=== PATIENT | male | born 1940 | race Caucasian/White ===

== ENCOUNTER 2021-03-08 00:13 | Inpatient (IN) | payer OTHER, MEDICARE ==
[2021-03-08] MEDS ORDERED: ACETAMINOPHEN 500 MG TAB ONE (00:37)
[2021-03-08] MEDS ORDERED: NA CHLORIDE 0.9% 1,000 ML ONE ×2 (00:37→06:27)
[2021-03-08 00:49] LABS: Absolute Lymphocytes (CBC) 7.9 K/uL (0.7-4.9); Basophils % 0.8 % (0-1.3); Hematocrit 36.9 % (39.6-49.0); Lymphocytes % 70.4 % (15.3-44.8); MPV 9.1 fL (7.6-11.3); RBC Red Blood Cell Count 3.91 M/uL (4.33-5.43)
[2021-03-08 00:53] LABS: Protime INR 1.15
[2021-03-08 01:03] LABS: Albumin 3.3 g/dL (3.4-5.0); Bilirubin Direct 0.2 mg/dL (0-0.2); Bilirubin Total 0.6 mg/dL (0.2-1.0); CKMB Creatine Kinase MB 1.1 ng/mL (1.0-3.6); Protein, Total 6.8 g/dL (6.4-8.2); Troponin (Emerg Dept Use Only) 0.04 ng/mL (0.0-0.045)
[2021-03-08 01:39] LABS: Blood Morphology Comment NOT SEEN (NOT SEEN); Platelet Estimate DECR
[2021-03-08] MEDS ORDERED: AZITHROMYCIN 500 MG INJ IVPB ONE (02:00)
[2021-03-08] MEDS ORDERED: CEFTRIAXONE/SWI 1gm 1 GM/10 ML SYR ONE (02:00)
[2021-03-08] MEDS ORDERED: NA CHLORIDE 0.9% 250 ML ONE (02:00)
[2021-03-08 04:22] LABS: Urine Blood Trace-lysed (Negative); Urine Glucose Negative (Negative); Urine Protein Negative (Negative)
--- NOTE | 2021-03-08 05:31 | EDPHYS ---
Physician Documentation [facility] Name: Mo Millard Age: 80 yrs Sex: Male : 1940 Arrival Date: 03/08/2021 Time: 00:14 Bed 4 Private MD: ED Physician Ravinder Erickson HPI: 03/08 00:15 This 80 yrs old Male presents to ER via EMS with complaints of Fever. mh7 00:15 The patient reports fever, not measured (subjective). mh7 00:15 Onset: The symptoms/episode began/occurred just prior to arrival, today. Modifying mh7 factors: there are no obvious modifying factors. Associated signs and symptoms: Pertinent positives: chest pain, chills, myalgias, shortness of breath, Pertinent negatives: abdominal pain, altered mental status, backache, diarrhea, pulling at ears, earache, headache, hemoptysis, myalgias, nausea, night sweats, runny nose, sinus congestion, sinus drainage, skin rash, sore throat, swelling, vomiting. Severity of symptoms: At their worst the symptoms were moderate today, in the emergency department the symptoms have improved mildly. - Immunization history:: Adult Immunizations not immunized. - Social history:: Smoking status: unknown. ROS: 00:15 Eyes: Negative for injury, pain, redness, and discharge, ENT: Negative for injury, mh7 pain, and discharge, Neck: Negative for injury, pain, and swelling, Abdomen/GI: Negative for abdominal pain, nausea, vomiting, diarrhea, and constipation, Back: Negative for injury and pain, : Negative for injury, bleeding, discharge, and swelling, MS/Extremity: Negative for injury and deformity, Skin: Negative for injury, rash, and discoloration, Neuro: Negative for headache, weakness, numbness, tingling, and seizure, Psych: Negative for depression, anxiety, suicide ideation, homicidal ideation, and hallucinations, Allergy/Immunology: Negative for hives, rash, and allergies, Endocrine: Negative for neck swelling, polydipsia, polyuria, polyphagia, and marked weight changes, Hematologic/Lymphatic: Negative for swollen nodes, abnormal bleeding, and unusual bruising. Exam: 00:15 Head/Face: Normocephalic, atraumatic. Eyes: Pupils equal round and reactive to light, mh7 extra-ocular motions intact. Lids and lashes normal. Conjunctiva and sclera are non-icteric and not injected. Cornea within normal limits. Periorbital areas with no swelling, redness, or edema. ENT: Nares patent. No nasal discharge, no septal abnormalities noted. Tympanic membranes are normal and external auditory canals are clear. Oropharynx with no redness, swelling, or masses, exudates, or evidence of obstruction, uvula midline. Mucous membranes moist. Neck: Trachea midline, no thyromegaly or masses palpated, and no cervical lymphadenopathy. Supple, full range of motion without nuchal rigidity, or vertebral point tenderness. No Meningismus. 00:15 Abdomen/GI: Soft, non-tender, with normal bowel sounds. No distension or tympany. No guarding or rebound. No evidence of tenderness throughout. Back: No spinal tenderness. No costovertebral tenderness. Full range of motion. 00:15 Skin: Warm, dry with normal turgor. Normal color with no rashes, no lesions, and no evidence of cellulitis. Neuro: Awake and alert, GCS 15, oriented to person, place, time, and situation. Cranial nerves II-XII grossly intact. Motor strength 5/5 in all extremities. Sensory grossly intact. Cerebellar exam normal. Normal gait. Psych: Awake, alert, with orientation to person, place and time. Behavior, mood, and affect are within normal limits. 00:15 Constitutional: The patient appears in no acute distress, alert, awake, febrile. 00:15 Cardiovascular: Rate: tachycardic, Rhythm: regular, Pulses: no pulse deficits are appreciated, Heart sounds: normal, normal S1and S2, Edema: is not appreciated, JVD: is not appreciated. 00:15 Respiratory: the patient does not display signs of respiratory distress, Respirations: normal, Breath sounds: rhonchi, that are mild, are scattered, Respiratory rate: 20 00:15 Musculoskeletal/extremity: Extremities: noted in the right leg: erythema, tenderness, ROM: intact in all extremities, Circulation is intact in all extremities. Sensation intact. Compartment Syndrome exam of affected extremity: is normal. no numbness, no tingling, no sensation deficit, no palor, no weak pulses, Joints: All joints appear normal with full range of motion. DVT Exam: no pain, no tenderness, no erythema, no increased warmth, Calves: are non-tender, have equal circumference. Vital Signs: 00:42 BP 121 / 77; Pulse 126; Resp 24 S; Temp 103.2(O); Pulse Ox 90% on R/A; Weight 81.19 kg; ad5 Height 5 ft. 11 in. (180.34 cm); 01:52 BP 123 / 55; Pulse 99; Resp 20 S; Pulse Ox 95% on 4 lpm NC; ad5 02:55 BP 104 / 59; Pulse 109; Resp 19 S; Temp 100.8(O); Pulse Ox 97% on 4 lpm NC; ad5 03:50 BP 107 / 55; Pulse 88; Resp 16 S; Pulse Ox 95% on 4 lpm NC; ad5 04:40 BP 92 / 48; Pulse 92; Resp 18; Temp 99.7; Pulse Ox 98% on 4 lpm NC; ea 05:13 BP 98 / 59; Pulse 86; Resp 20; Pulse Ox 97% on 4 lpm NC; ea 06:15 BP 95 / 54; Pulse 85; Resp 19; Pulse Ox 97% on R/A; ea 00:42 Body Mass Index 24.97 (81.19 kg, 180.34 cm) ad5 MDM: 05:27 Differential diagnosis: viral Infection, bacterial infection, URI, bronchitis, mh7 pneumonia UTI, Cellulitis. Data reviewed: vital signs, nurses notes, EMS record, lab test result(s), cardiac enzymes, CBC, electrolytes, urinalysis, EKG, radiologic studies, CT scan, plain films, ultrasound. Data interpreted: Pulse oximetry: on 2L(s) per nasal canula, is 97 %. Interpretation: acceptable. Counseling: I had a detailed discussion with the patient and/or guardian regarding: the historical points, exam findings, and any diagnostic results supporting the discharge/admit diagnosis, lab results, radiology results, the need for further work-up and treatment in the hospital. Response to treatment: the patient's symptoms have markedly improved after treatment. 05:30 Patient medically screened. [facility] 03/08 00:22 Order name: Amylase, Serum [facility] 03/08 00:22 Order name: Basic Metabolic Panel [facility] 03/08 00:22 Order name: Blood Culture Adult (2) [facility] 03/08 00:22 Order name: CBC with Diff [facility] 03/08 00:22 Order name: CPK [facility] 03/08 00:22 Order name: Ckmb; Complete Time: 05:17 [facility] 03/08 00:22 Order name: LFT's; Complete Time: 05:17 [facility] 03/08 00:22 Order name: Lactate; Complete Time: 01:29 [facility] 03/08 00:22 Order name: Lipase; Complete Time: 05:17 [facility] 03/08 00:22 Order name: Procalcitonin; Complete Time: 01:57 [facility] 03/08 00:22 Order name: Protime (+inr); Complete Time: 01:29 03/08 00:22 Order name: Ptt, Activated; Complete Time: 01:29 [facility] 03/08 00:22 Order name: Troponin (emerg Dept Use Only); Complete Time: 05:17 [facility] 03/08 00:22 Order name: Urine Microscopic Only; Complete Time: 06:07 [facility] 03/08 00:22 Order name: Influenza Screen (a \T\ B); Complete Time: 01:29 [facility] 03/08 00:22 Order name: Amylase; Complete Time: 05:17 [facility] 03/08 00:22 Order name: Basic Metabolic Panel; Complete Time: 05:17 [facility] 03/08 00:22 Order name: Blood Culture [facility] 03/08 00:22 Order name: CBC with Automated Diff; Complete Time: 01:57 [facility] 03/08 00:22 Order name: Creatine Phosphokinase; Complete Time: 05:17 [facility] 03/08 00:51 Order name: Manual Differential; Complete Time: 01:57 [facility] 03/08 01:44 Order name: SARS-COV-2 RT PCR; Complete Time: 01:57 [facility] 03/08 03:41 Order name: PROBNP [facility] 03/08 03:50 Order name: NT PRO-BNP; Complete Time: 05:17 [facility] 03/08 04:21 Order name: Urine Dipstick-Ancillary; Complete Time: 05:17 [facility] 03/08 05:42 Order name: Basic Metabolic Panel [facility] 03/08 05:42 Order name: Basic Metabolic Panel [facility] 03/08 05:42 Order name: CBC with Automated Diff [facility] 03/08 00:22 Order name: Chest Single View XRAY [facility] 03/08 00:22 Order name: Accucheck; Complete Time: 00:32 mh03/08 00:22 Order name: Cardiac monitoring; Complete Time: 00:32 03/08 00:22 Order name: EKG - Nurse/Tech; Complete Time: 00:32 03/08 00:22 Order name: IV Saline Lock - Large Bore; Complete Time: 00:32 03/08 00:22 Order name: Labs collected and sent; Complete Time: 00:32 03/08 00:22 Order name: O2 Per Protocol; Complete Time: 00:32 03/08 00:22 Order name: O2 Sat Monitoring; Complete Time: 00:32 03/08 00:22 Order name: Urine Dipstick-Ancillary (obtain specimen); Complete Time: 00:32 03/08 00:23 Order name: US Extremity Venous Unilateral Ltd [facility] 03/08 01:32 Order name: CT Chest For PE Angio [facility] 03/08 01:32 Order name: CT Abd/Pelvis - IV Contrast Only [facility] 03/08 05:42 Order name: Heart Healthy [facility] 03/08 05:42 Order name: CBC with Automated Diff [facility] 03/08 06:09 Order name: XRAY Tib Fib RIGHT ea Administered Medications: 00:26 Drug: Tylenol 1000 mg Route: PO; ea 01:49 Follow up: Response: No adverse reaction; Temperature is decreased ad5 00:28 Drug: NS 0.9% (30 ml/kg) 30 ml/kg Route: IV; Rate: bolus; Site: left forearm; ea 00:56 Drug: NS 0.9% (30 ml/kg) 30 ml/kg Route: IV; Rate: bolus; Site: left forearm; ad5 02:21 Follow up: IV Status: Completed infusion; IV Intake: 1000ml ad5 01:45 Drug: Rocephin (cefTRIAXone) 1 grams Route: IV; Rate: per protocol; Site: left forearm; ad5 02:20 Follow up: Response: No adverse reaction ad5 06:30 Follow up: IV Status: Completed infusion ea 01:49 Drug: AZITHromycin 500 mg Route: IVPB; Infused Over: 1 hrs; Site: left forearm; ad5 05:43 Follow up: IV Status: Completed infusion; IV Intake: 250ml ad5 06:16 Drug: Clindamycin 600 mg Route: IVPB; Infused Over: 30 mins; Site: left forearm; ad5 06:35 Follow up: IV Status: Completed infusion ea Disposition Summary: 03/08/21 05:30 Hospitalization Ordered Hospitalization Status: Inpatient Admission [facility] Provider: Andre Lei [facility] Location: Telemetry/MedSurg (Inpatient) [facility] Condition: Stable [facility] Problem: new [facility] Symptoms: have improved [facility] Bed/Room Type: Standard [facility] Room Assignment: 401(03/08/21 06:05) tl1 Diagnosis - Cellulitis [facility] - Pneumonia [facility] - Sepsis [facility] Forms: - Medication Reconciliation Form [facility] - SBAR form [facility] Signatures: Dispatcher [employer] EDMS Randy Castorena, CHAN-C VEHICLE ASSEMBLY INSPECTOR-Cla1 Paula Huff RN RN 1 Laura Gifford RN RN Ravinder Paulino MD MD 7 Nick Jimenez ad5 Corrections: (The following items were deleted from the chart) 00:46 00:16 CORONAVIRUS+MR.LAB.BRZ ordered. EDMS EDMS 03:50 03:41 NT PRO-BNP ordered. EDMS EDMS 05:58 05:30 7 tl1 06:05 05:58 406 tl1 tl1
--- NOTE | 2021-03-08 05:31 | ER ---
Nurse's Notes [facility] Name: Mo Millard Age: 80 yrs Sex: Male : 1940 Arrival Date: 03/08/2021 Time: 00:14 Bed 4 Private MD: Diagnosis: Cellulitis;Pneumonia;Sepsis Presentation: 03/08 00:25 Coronavirus screen: Client denies travel out of the [place] in the last 14 days. Ebola ea Screen: No symptoms or risks identified at this time. Initial Sepsis Screen: Does the patient meet any 2 criteria? Temp <36.0*C (96.8*F)) or > 38.3*C (100.9*F). HR > 90 bpm. Does the patient have a suspected source of infection? Yes: Productive cough/pneumonia. Risk Assessment: Do you want to hurt yourself or someone else? Patient reports no desire to harm self or others. Onset of symptoms was March 08, 2021. 00:25 Acuity: PK 3 ea 00:25 Method Of Arrival: EMS: [facility] ea 00:42 Chief complaint: EMS states: Pt BIB EMS for c/o CP, SOB, fever, chills that began ad5 earlier this pm. Pt also c/o redness, edema, pain to RLE that began earlier in the day, denies recent injury. Distal SMCs intact. Pt on NRB by EMS captain room service for O2 sat 88% on RA, placed on NC upon arrival to ED with O2 sat mid 90s, tolerating well. - Immunization history:: Adult Immunizations not immunized. - Social history:: Smoking status: unknown. Screenin:33 Abuse screen: Denies threats or abuse. Nutritional screening: No deficits noted. ea Tuberculosis screening: No symptoms or risk factors identified. Fall Risk IV access (20 points). Assessment: 00:25 General: Appears uncomfortable, Behavior is appropriate for age. Pain: Complains of ea pain in right leg. Neuro: Level of Consciousness is awake, alert, obeys commands, Oriented to person, place, situation. Cardiovascular: Patient's skin is warm and dry. Respiratory: Airway is patent Respiratory effort is even, unlabored, Respiratory pattern is regular, symmetrical. Derm: Skin is pink, warm \T\ dry. 01:30 Reassessment: Patient appears in no apparent distress at this time. Patient and/or ad5 family updated on plan of care and expected duration. Pain level reassessed. Patient is alert, oriented x 3, equal unlabored respirations, skin warm/dry/pink. Patient states feeling better. 02:54 Reassessment: Patient appears in no apparent distress at this time. Patient and/or ad5 family updated on plan of care and expected duration. Pain level reassessed. Patient is alert, oriented x 3, equal unlabored respirations, skin warm/dry/pink. Family remains at bedside. Pt positioned for comfort in stretcher, resp even/unlabored. VSS. Denies needs or c/o at this time. Will continue to monitor. 03:20 Reassessment: Fam [place] [phone] Ric [place] [phone]. ea 05:13 Reassessment: Patient and/or family updated on plan of care and expected duration. Pain ea level reassessed. Patient is alert, oriented x 3, equal unlabored respirations, skin warm/dry/pink. Vital Signs: 00:42 BP 121 / 77; Pulse 126; Resp 24 S; Temp 103.2(O); Pulse Ox 90% on R/A; Weight 81.19 kg; ad5 Height 5 ft. 11 in. (180.34 cm); 01:52 BP 123 / 55; Pulse 99; Resp 20 S; Pulse Ox 95% on 4 lpm NC; ad5 02:55 BP 104 / 59; Pulse 109; Resp 19 S; Temp 100.8(O); Pulse Ox 97% on 4 lpm NC; ad5 03:50 BP 107 / 55; Pulse 88; Resp 16 S; Pulse Ox 95% on 4 lpm NC; ad5 04:40 BP 92 / 48; Pulse 92; Resp 18; Temp 99.7; Pulse Ox 98% on 4 lpm NC; ea 05:13 BP 98 / 59; Pulse 86; Resp 20; Pulse Ox 97% on 4 lpm NC; ea 06:15 BP 95 / 54; Pulse 85; Resp 19; Pulse Ox 97% on R/A; ea 00:42 Body Mass Index 24.97 (81.19 kg, 180.34 cm) ad5 ED Course: 00:14 Patient arrived in ED. la1 00:15 Ravinder Erickson MD is Attending Physician. mh7 00:25 Inserted saline lock: 20 gauge in left forearm, using aseptic technique. Blood ea collected. 00:25 Patient has correct armband on for positive identification. Bed in low position. Call ea light in reach. Side rails up X2. 00:25 Arm band placed on right wrist. Patient placed in an exam room, on a stretcher, on ea oxygen, on supervisor opening and picking, on pulse oximetry. 00:34 Triage completed. ea 00:41 Nick Jimenez is Primary Nurse. ad5 00:50 Chest Single View XRAY In Process Unspecified. EDMS 02:11 US Extremity Venous Unilateral Ltd In Process Unspecified. EDMS 02:20 CT Abd/Pelvis - IV Contrast Only Sent. ad5 02:20 CT Chest For PE Angio Sent. ad5 02:35 CT Chest For PE Angio In Process Unspecified. EDMS 02:35 CT Abd/Pelvis - IV Contrast Only In Process Unspecified. EDMS 05:28 Andre Lei MD is Hospitalizing Provider. 7 06:19 No provider procedures requiring assistance completed. Patient admitted, IV remains in ad5 place. Administered Medications: 00:26 Drug: Tylenol 1000 mg Route: PO; ea 01:49 Follow up: Response: No adverse reaction; Temperature is decreased ad5 00:28 Drug: NS 0.9% (30 ml/kg) 30 ml/kg Route: IV; Rate: bolus; Site: left forearm; ea 00:56 Drug: NS 0.9% (30 ml/kg) 30 ml/kg Route: IV; Rate: bolus; Site: left forearm; ad5 02:21 Follow up: IV Status: Completed infusion; IV Intake: 1000ml ad5 01:45 Drug: Rocephin (cefTRIAXone) 1 grams Route: IV; Rate: per protocol; Site: left forearm; ad5 02:20 Follow up: Response: No adverse reaction ad5 06:30 Follow up: IV Status: Completed infusion ea 01:49 Drug: AZITHromycin 500 mg Route: IVPB; Infused Over: 1 hrs; Site: left forearm; ad5 05:43 Follow up: IV Status: Completed infusion; IV Intake: 250ml ad5 06:16 Drug: Clindamycin 600 mg Route: IVPB; Infused Over: 30 mins; Site: left forearm; ad5 06:35 Follow up: IV Status: Completed infusion ea Intake: 02:21 IV: 1000ml; Total: 1000ml. ad5 05:43 IV: 250ml; Total: 1250ml. ad5 Outcome: 05:30 Decision to Hospitalize by Provider. [facility] 06:19 Admitted to Med/surg accompanied by nurse, via stretcher, Report called to TIFFANY Genao ad5 06:19 Condition: stable 06:19 Instructed on the need for admit, Demonstrated understanding of instructions. 06:32 Patient left the ED. ea Signatures: Dispatcher [employer] EDMS Randy Castorena, CHAN-C WORKCELL OPERATOR-Cla1 Laura Gifford RN RN ea Holmes, Maurice, MD MD Nick Spears ad5 Corrections: (The following items were deleted from the chart) 04:42 04:40 BP 92 / 48; Pulse 92bpm; Resp 18bpm; Pulse Ox 98% 3 lpm Nasal Cannula; Temp ea 99.7F; ea 06:19 02:55 BP 104 / 59; Pulse 109bpm; Resp 19bpm; Spontaneous; Pulse Ox 97% 4 lpm Nasal ad5 Cannula; ad5
[2021-03-08] MEDS ORDERED: ONDANSETRON 4 MG/2 ML VIAL IV PRN (05:35)
[2021-03-08 05:46] LABS: Urine Bacteria <20 /HPF (NONE SEEN); Urine RBC <5 /HPF (NONE SEEN)
[2021-03-08] MEDS: MORPHINE 2 MG/ML SYR IV PRN (06:24)
[2021-03-08] MEDS ORDERED: CLINDAMYCIN 600MG/D5W 600 MG/50 ML BAG IV ONE (06:27)
[2021-03-08] MEDS ORDERED: MORPHINE 2 MG/ML SYR ONE (06:47)
--- NOTE | 2021-03-08 07:48 | RAD REPORT ---
EXAM DESCRIPTION: US - Extremity Venous Uni Ltd - 03/08/2021 2:11 am COMPARISON: None. TECHNIQUE: Real-time sonographic evaluation of the right lower extremity deep venous system was perf ormed. FINDINGS: Normal compressibility, flow augmentation, phasic flow and spontaneous flow is identified in the right lower extremity deep venous system. No intraluminal filling defects seen. IMPRESSION: No DVT in the right lower extremity.
[2021-03-08] MEDS ORDERED: VANCOMYCIN/NS 1 gm 1 GM/250 ML BAG IVPB SCH (08:00)
--- NOTE | 2021-03-08 08:05 | RAD REPORT ---
EXAM DESCRIPTION: RAD - Chest Single View - 03/08/2021 12:51 am CLINICAL HISTORY: Chest pain, shortness of breath, fever chills COMPARISON: None. TECHNIQUE: AP portable chest image was obtained . FINDINGS: No edema or consolidation. Biventricular pacemaker. Soft tissue anchors in the right humer al head. No pneumothorax or pleural effusions. Visualized upper abdomen is unremarkable. IMPRESSION: No acute cardiopulmonary process.
[2021-03-08 08:21] VITALS: BMI 26.4
[2021-03-08] MEDS: D5 0.45 NS 1,000 ML IV SCH ×3 (09:12→22:31)
[2021-03-08] MEDS: VANCOMYCIN 1.5 GM in NA CHLORIDE 0.9% 500 ML IVPB SCH (09:20)
[2021-03-08] MEDS ORDERED: PNEUMOCOCCAL VACCINE 0.5 ML IMVAC ONE (10:00)
--- NOTE | 2021-03-08 10:06 | RAD REPORT ---
EXAM DESCRIPTION: RAD - Tib Fib Right - 03/08/2021 9:45 am CLINICAL HISTORY: Pain and swelling to the right leg COMPARISON: None. FINDINGS: Status post right total knee arthroplasty. No evidence of hardware complications. No fract ures are identified. Peripheral vascular calcifications are noted. IMPRESSION: No fracture of the tibia or fibula is identified. Knee arthroplasty hardware appears int act.
--- NOTE | 2021-03-08 11:36 | RAD REPORT ---
EXAM DESCRIPTION: CT - Chest For Pe Angio - 03/08/2021 6:32 am COMPARISON: None. CLINICAL HISTORY: [facility] MAIN Fever;Dyspnea TECHNIQUE: CT images through the chest with IV contrast using the pulmonary embolus protocol. Multip lanar reformats. MIPS reformats are provided. Automated exposure control was utilized on this exami [facility] as a dose lowering technique. FINDINGS: Pulmonary arteries and vascular: Diagnostic quality bolus. No filling defects. Moderate mu ltivessel calcified atherosclerosis. Heart and mediastinum: Heart size is enlarged. Left chest pacemaker in place. No lymphadenopathy. Thyroid gland: A 2.1 cm posterior left thyroid nodule is present. Lungs: Bilateral groundglass opacities are present. Dependent atelectasis or scarring is noted. Airways: No filling defects. No bronchiectasis. Pleura: No pneumothorax. No significant pleural effusion. Musculoskeletal and soft tissues: Chronic bilateral rib fractures. IMPRESSION: 1. No evidence of pulmonary embolus. 2. Mild bilateral groundglass opacities favor mild pulmonary edema and less likely early infection. 3. Cardiomegaly. 4. Moderate atherosclerosis. 5. 2.1 cm left thyroid nodule. Recommend thyroid ultrasound. EXAM DESCRIPTION: CT Abdomen and Pelvis COMPARISON: None. CLINICAL HISTORY: [facility] MAIN Fever;Dyspnea TECHNIQUE: CT of the abdomen and pelvis was acquired with IV contrast material. Coronal and sagitt al reconstructions were obtained. Automated exposure control was utilized on this examination as a dose lowering technique. FINDINGS: Liver: Normal. Gallbladder and biliary: Normal gallbladder. Unremarkable biliary tree. Pancreas: Normal. Spleen: The spleen is enlarged measuring 16.8 cm. Adrenal glands: Normal adrenal glands. Kidneys: Right renal cysts measure up to 2.9 cm. Stomach and Small Bowel: The stomach and small bowel are normal. Urinary bladder: Normal. Prostate/Male Urogenital: Normal. Colon and Appendix: Severe sigmoid diverticulosis. Mild ascending colon wall thickening is noted. No evidence of appendicitis. Retroperitoneum and lymph nodes: Right lower quadrant mesenteric lymph nodes measure up to 2.9 cm jenn rt axis (series 501 image 46). Vascular: Moderate multivessel calcified atherosclerosis. Peritoneal cavity: No ascites or free air. Musculoskeletal and soft tissues: Small periumbilical fat-containing hernias are present. Lumbar spon dylosis with grade 1 anterolisthesis L4 on L5. No aggressive bone lesions. No compression fracture. IMPRESSION: 1. Right lower quadrant mesenteric lymph nodes measure up to 2.9 cm short axis. This is concerning for malignancy or lymphoma. Consider colonoscopy if not recently performed as there is mil d ascending colon wall thickening. 2. Splenomegaly. 3. Severe sigmoid diverticulosis. 4. Moderate atherosclerosis. Electronically signed by: Alexandru Hernandez MD 03/08/2021 3:11 AM CDT Due to temporary technical issues with the PACS/Fluency reporting system, reports are being signed by the in house radiologist without review as a courtesy to ensure prompt reporting. The interpreting r adiologist is fully responsible for the content of the report.
--- NOTE | 2021-03-08 11:44 | RAD REPORT ---
EXAM DESCRIPTION: CTAbdomen Pelvis W Contrast - 03/08/2021 6:31 am COMPARISON: None. CLINICAL HISTORY: [facility] MAIN Fever;Dyspnea TECHNIQUE: CT images through the chest with IV contrast using the pulmonary embolus protocol. Multip lanar reformats. MIPS reformats are provided. Automated exposure control was utilized on this exami [facility] as a dose lowering technique. FINDINGS: Pulmonary arteries and vascular: Diagnostic quality bolus. No filling defects. Moderate mu ltivessel calcified atherosclerosis. Heart and mediastinum: Heart size is enlarged. Left chest pacemaker in place. No lymphadenopathy. Thyroid gland: A 2.1 cm posterior left thyroid nodule is present. Lungs: Bilateral groundglass opacities are present. Dependent atelectasis or scarring is noted. Airways: No filling defects. No bronchiectasis. Pleura: No pneumothorax. No significant pleural effusion. Musculoskeletal and soft tissues: Chronic bilateral rib fractures. IMPRESSION: 1. No evidence of pulmonary embolus. 2. Mild bilateral groundglass opacities favor mild pulmonary edema and less likely early infection. 3. Cardiomegaly. 4. Moderate atherosclerosis. 5. 2.1 cm left thyroid nodule. Recommend thyroid ultrasound. EXAM DESCRIPTION: CT Abdomen and Pelvis COMPARISON: None. CLINICAL HISTORY: [facility] MAIN Fever;Dyspnea TECHNIQUE: CT of the abdomen and pelvis was acquired with IV contrast material. Coronal and sagitt al reconstructions were obtained. Automated exposure control was utilized on this examination as a dose lowering technique. FINDINGS: Liver: Normal. Gallbladder and biliary: Normal gallbladder. Unremarkable biliary tree. Pancreas: Normal. Spleen: The spleen is enlarged measuring 16.8 cm. Adrenal glands: Normal adrenal glands. Kidneys: Right renal cysts measure up to 2.9 cm. Stomach and Small Bowel: The stomach and small bowel are normal. Urinary bladder: Normal. Prostate/Male Urogenital: Normal. Colon and Appendix: Severe sigmoid diverticulosis. Mild ascending colon wall thickening is noted. No evidence of appendicitis. Retroperitoneum and lymph nodes: Right lower quadrant mesenteric lymph nodes measure up to 2.9 cm jenn rt axis (series 501 image 46). Vascular: Moderate multivessel calcified atherosclerosis. Peritoneal cavity: No ascites or free air. Musculoskeletal and soft tissues: Small periumbilical fat-containing hernias are present. Lumbar spon dylosis with grade 1 anterolisthesis L4 on L5. No aggressive bone lesions. No compression fracture. IMPRESSION: 1. Right lower quadrant mesenteric lymph nodes measure up to 2.9 cm short axis. This is concerning for malignancy or lymphoma. Consider colonoscopy if not recently performed as there is mil d ascending colon wall thickening. 2. Splenomegaly. 3. Severe sigmoid diverticulosis. 4. Moderate atherosclerosis. Electronically signed by: Alexandru Hernandez MD 03/08/2021 3:11 AM CDT Due to temporary technical issues with the PACS/Fluency reporting system, reports are being signed by the in house radiologist without review as a courtesy to ensure prompt reporting. The interpreting r adiologist is fully responsible for the content of the report.
[2021-03-08] MEDS ORDERED: NA CHLORIDE 0.9% 500 ML IV ONE ×2 (11:52→15:00)
[2021-03-08] MEDS ORDERED: Levofloxacin500mg IV 500 MG/100 ML BAG IV SCH (12:00)
--- NOTE | 2021-03-08 12:59 | EKG ---
Test Date: 2021-03-08 Test Time: 00:28:54 Manager Utilization Review: JOESPH MEASUREMENT RESULTS: Intervals: Rate: 108 [place]: 150 QRSD: 166 QT: 406 QTc: 544 [place]: P: 53 [place]: 150 QRS: 125 T: -23 INTERPRETIVE STATEMENTS: Poor data quality, interpretation may be adversely affected Electronic ventricular pacemaker Compared to ECG 08/08/2013 15:09:28 Atrial flutter no longer present Left ventricular hypertrophy no longer present ST (T wave) deviation no longer present Electronically Signed On 03-08-21 12:58:55 CDT by Wilfred Crooks
--- OUTSIDE RECORDS SUMMARY | 2021-03-08 15:04 | XMS REPORT | Continuity of Care Document ---
:1940 Author Organization [facility] t Address [address] [place] [address] Care Team Providers Name Role Phone Do PACHECO Primary Care Physician Dajuan PACHECO PhD, S. Attending Clinician Gio Patel MD Attending Clinician Sabiha Meraz MA Attending Clinician Unavailable Damien CARSON Attending Clinician Unavailable Shaheen PACHECO, Walt Barboza Attending Clinician Navi Begum MD Attending Clinician Elena PACHECO Attending Clinician Lillian OH Attending Clinician Brian PACHECO, RGopi Attending Clinician DAJUAN Admitting Clinician Unavailable Payers Payer Name Policy Type Policy Effective Date Expiration Date Sour ce Number MEDICAREMEDICARE PART [id number] 2006 Bandar Finley AND 00:00:00 [employer] [id number] 2006- [facility] DEMedicare AARPAARP [id number] 2016 [place] [id number] 00:00:00 Met kumar 2016-PresentComme rcial Problems Condition Condition Condition Status Onset Resolution Last Treating Co mments Source Name Details Category Date Date Treatment Clinician Date CAD in CAD in Disease Active [place] nisqually nisqually 03-22 [facility] artery artery 00:00: st 00 PAD PAD Disease Active [place] (periphera (periphera 7-21 Me thodi l artery l artery 00:00: st disease) disease) 00 Cardiomyop Cardiomyop Disease Active [facility] athy athy 1-21 [facility] 00:00: st 00 Abnormal Abnormal Disease Active [place] stress stress 8-20 [facility] test test 00:00: st 00 Angina Angina Disease Active [place] pectoris pectoris 8-20 Method i 00:00: st 00 Chest pain Chest pain Disease Active [facility] 820 [facility] 00:00: st 00 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 SVT events lasting for 8 - 28 seconds durationC ontinue to monitorFo r now, continue Metoprolo l dose SOB SOB Disease Active [place] (shortness (shortness 9-28 Me thodi of breath) of breath) 00:00: st 00 Essential Essential Disease Active Overview: [place] hypertensi hypertensi 9-28 Formattin [facility] on on 00:00: g of this st 00 note might be different from the original. 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 S/p dual chamber perm pacemaker implant by Dr. Graff (04/15/17) Paroxysmal Paroxysmal Disease Active [place] atrial atrial 4-25 [facility] fibrillati fibrillati 00:00: st on on Carotid Carotid Disease Active [place] bruit bruit 12-25 Methodi 00:00: st 00 Dizzy Dizzy Disease Active [place] 4-25 Methodi 00:00: st 00 Allergies, Adverse Reactions, Alerts This patient has no known allergies or adverse reactions. Family History Family Member Diagnosis Comments Start Date Stop Date Source Natural brother Lung cancer [facility] Natural brother Prostate cancer [place] [facility] Natural father Heart attack [facility] Natural mother Osteoporosis [facility] Social History Social Habit Start Date Stop Date Quantity Comments Source Tobacco use and 2020-10-28 2020-10-28 Former user [facility] exposure 00:00:00 00:00:00 Alcohol intake 2020-10-28 2020-10-28 Current drinker [place] [facility] 00:00:00 00:00:00 of alcohol (finding) Alcohol Comment 2020-10-27 2020-10-27 social [facility] ethodist 00:00:00 00:00:00 Sex [birth year] [facility] ethodist 00:00:00 00:00:00 Smoking Status Start Date Stop Date Source Former smoker 2020-10-28 00:00:00 2020-10-28 00:00:00 [facility] Medications Ordered Filled Start Stop Current Ordering Indication Dosage Frequency Signature Comments Components Source Medication Medication Date Date Medication? Clinician (SIG) Name Name metoprolol Yes TAKE ONE [place] succinate 6-23 (1) [facility] XL 00:00: TABLET(S) st (TOPROL-XL) 00 BY MOUTH 25 mg 24 hr DAILY. tablet amIODarone Yes TAKE ONE [place] (PACERONE) 5-31 (1) [facility] 200 MG 00:00: TABLET(S) st tablet 00 BY MOUTH ONCE A DAY. amIODarone 200mg QD Take 1 Juanito ston (PACERONE) 3-25 04-24 tablet Method i 200 MG 00:00: 23:59 ([address] tablet 00 :00 total) by mouth daily for 30 days. cholecalcif Yes 400U QD Take 400 [place] james, 2-25 Units by [facility] vitamin D3, 12:46: mouth st (VITAMIN 21 daily. D3) 400 unit tablet amIODarone 200mg QD Take 1 Juanito ston (PACERONE) 2-25 03-25 tablet Method i 200 MG 00:00: 00:00 ([address] tablet 00 :00 total) by mouth daily for 30 days. dronedarone 400mg QD Take 1 [place] (Multaq) - 02-24 tablet [facility] 400 mg 00:00: 00:00 ([address] tablet 00 :00 total) by mouth daily. amIODarone 200mg QD Take 1 Juanito ston (PACERONE) 124 tablet Method i 200 MG 00:00: 00:00 ([address] tablet 00 :00 total) by mouth daily. Multaq 400 2019-09 TAKE ONE [place] mg tablet 09-10 (1) Methodi 00:00: 00:00 TABLET(S) st 00 :00 BY MOUTH ONCE A DAY. Multaq 400 TAKE ONE [place] mg tablet 04-13 (1) [facility] 00:00: 00:00 TABLET(S) st 00 :00 BY MOUTH ONCE A DAY. metoprolol 25mg QD Take 1 [place] succinate 04-11 06-23 tablet (25 Met hodi XL 00:00: 00:00 mg total) st (TOPROL-XL) 00 :00 by mouth 25 mg 24 hr daily. tablet Multaq 400 TAKE ONE [place] mg tablet 01-17 (1) Methodi 00:00: 00:00 TABLET(S) st 00 :00 BY MOUTH ONCE A DAY. metoprolol 25mg QD Take 1 [place] succinate 05-19 04-11 tablet (25 Met hodi XL 00:00: 00:00 mg total) st (TOPROL-XL) 00 :00 by mouth 25 mg 24 hr daily. tablet Vital Signs Vital Name Observation Time Observation Value Comments Source Body height 2021-01-20 08:22:00 177.8 cm Ricki Colin Body weight 2021-01-20 08:22:00 86.183 kg [facility] [facility] BMI 2021-01-20 08:22:00 27.26 kg/m2 Ricki Sampsonist Body temperature 2020-11-16 14:57:00 36.22 Nighat Kosta Colin Systolic blood 2020-10-27 12:10:00 125 mm[Hg] [place] [facility] pressure Diastolic blood 2020-10-27 12:10:00 79 mm[Hg] [place] [facility] pressure Heart rate 2020-10-27 12:10:00 69 /min Ricki Colin Respiratory rate 2020-10-27 12:10:00 16 /min Kosta Colin Oxygen saturation in 2020-10-27 12:10:00 96 /min Ricki Colin Arterial blood by Pulse oximetry Procedures Procedure Date / Time Performing Clinician Source Performed XR SHOULDER 2+ VW LEFT 2021-01-20 08:18:07 Ilsa Patel [place] ARTHROCENTESIS 2021-01-20 08:15:00 Ilsa Patel ASPIR&/INJ MAJOR JT/BURSA W/O US CBC WITH PLATELET AND 2020-11-16 16:34:00 Gm Jamison [facility] DIFFERENTIAL Jabari COMPREHENSIVE METABOLIC 2020-11-16 16:34:00 Gm Jamisonist PANEL Jabari LDH 2020-11-16 16:34:00 [facility] URIC ACID LEVEL 2020-11-16 16:34:00 [facility] Barboza HEPATITIS ACUTE PANEL 2020-11-16 16:34:00 Gm Jamison HIV AG/AB COMBINATION 2020-11-16 16:34:00 Gm Jamison [facility] Kiran ESTIMATED GFR 2020-11-16 16:34:00 Gm Jamison Me thodist Jabari MANUAL DIFFERENTIAL 2020-11-16 16:34:00 Shaheen Gm tanner [facility] Jabari EP CARDIOVERSION W LILIA 2020-10-27 11:56:55 Sam GraffGopi Méndez on [facility] ECHOCARDIOGRAM 2020-10-27 11:41:58 Sam GraffGopi Robison Meth odannette TRANSESOPHAGEAL FOR CARDIOVERSION CBC WITH PLATELET AND 2020-10-27 10:08:00 DajuanSam [facility] DIFFERENTIAL MANUAL DIFFERENTIAL 2020-10-27 10:08:00 DajuanSam BLOOD SMEAR CONSULT 2020-10-27 10:08:00 Sam Graff FLOW CYTOMETRY EVALUATION 2020-10-27 10:08:00 Sam Graff ECG PRE/POST OP 2020-10-27 09:48:20 DajuanSam CarringtonGopi middleton BASIC METABOLIC PANEL 2020-10-25 12:53:00 Sam Graff CBC WITH PLATELET AND 2020-10-25 12:53:00 DajuanSam Buddhism DIFFERENTIAL PROTHROMBIN TIME WITH INR 2020-10-25 12:53:00 Sam Graff ECG 12-LEAD 2020-09-13 12:41:46 Dajuan Sam CarringtonGopi middleton US DUPLEX ARTERIAL LOWER 2020-04-12 09:34:06 Rj Aguilar EXTREMITY BILATERAL TTE COMPLETE, W CONTRAST, 2020-03-14 10:01:19 Rj Aguilar W DOPPLER ([id number]) Plan of Care Planned Activity Planned Date Details Comments Source Future Scheduled 2021-04-02 INFLUENZA VACCINE Concepcion tanner [facility] Test 00:00:00 [code = INFLUENZA VACCINE] Future Scheduled 1991 SHINGLES VACCINES (#1) Hue pickens [facility] Test 00:00:00 [code = SHINGLES VACCINES (#1)] Future Scheduled 1953 COVID-19 VACCINE (1) Juanito cho [facility] Test 00:00:00 [code = COVID-19 VACCINE (1)] Future Scheduled 1946 65+ PNEUMOCOCCAL [place] [facility] Test 00:00:00 VACCINE (1 of 2 - PPSV23) [code = 65+ PNEUMOCOCCAL VACCINE (1 of 2 - PPSV23)] Encounters Start End Encounter Admission Attending Care Care Encounter Source Date/Time Date/Time Type Type Clinicians Facility Department ID 2021-01-20 2021-01-20 Outpatient [facility] [id number] [place] 00:00:00 00:00:00 ILSA [address] 2021-01-20 2021-01-20 Outpatient [facility] [id number] [place] 00:00:00 00:00:00 ILSA [address] 2020-11-16 2020-11-16 Outpatient SHA[facility]EN [facility] [id number] [place] 00:00:00 00:00:00 GM [address] 2020-11-16 2020-11-16 Outpatient SHA[facility]EN [facility] [id number] [place] 00:00:00 00:00:00 GM [address] 2020-10-27 2020-10-27 Outpatient DAJUAN [facility] [id number] [place] 00:00:00 00:00:[address] 2020-09-13 2020-09-13 Outpatient DAJUAN [facility] [id number] [place] 00:00:00 00:00:[address] 2020-04-12 2020-04-12 Outpatient BRIAN [facility] [id number] [place] 00:00:00 00:00:00 RJ [address] 2020-03-22 2020-03-22 [facility] [id number] [place] 00:00:00 00:00:00 RJ [address] 2020-03-14 2020-03-14 Outpatient [facility] [id number] [place] 00:00:00 00:00:00 RJ [address] 2019-05-05 2019-05-05 Outpatient SAM GRAFF [facility] [id number] [place] 00:00:00 00:00:[address] Results Test Description Test Time Test Comments Results Result [facility] Comments Large Joint 2021-01-01 Ilsa Patel MD [place] Arthrocentesis: 1 01/20/2021 1:36 [facility] shoulder, R 08:15:00 PMLarge Joint subacromial Arthrocentesis: bursa shoulder, R subacromial bursaPerformed by: Ilsa Patel MDAuthorized by: Ilsa Patel MD Consent given by: PatientSite marked: the procedure site was marked Timeout: prior to procedure the correct patient, procedure, and site was verified Indications: Pain, joint swelling and diagnostic evaluationLocation: ShoulderSite: R subacromial bursaUltrasound guided?: No Fluoroscopically guided?: No Needle size (right): 22 GRight side approach: PosteriorRight side medications: 80 mg methylPREDNISolone acetate 40 mg/mL; 20 mg methylPREDNISolone acetate 40 mg/mL; 2 mL lidocaine 10 mg/mL (1 %); 1 mL lidocaine 10 mg/mL (1 %)Patient tolerance (right): Patient tolerated the procedure well with no immediate complications Flow cytometry evaluation 2020-10-28 17:29:18 Test Item Value Reference Range Interpretation Comme [facility] Case number (test code = 9798231) [id number] Flow cytometry evaluation (test code = See link below for PDF Lab R eport [id number]) [place] [facility] [id number] 23:01:55CARDIAC ELECTROPHYSIOLOGY NOTE PREPROCEDURE DIAGNOSIS:1. Persistent atrial fibrillation POSTPROCEDURE DIAGNOSIS:1. s/p successful cardioversion TITLE OF PROCEDURE:1. DC cardioversion INDICATIONS:The patient is a 80 y.o. male who is referred for electrical cardioversion. The patient underwent a preprocedure LILIA which was negative for intra-cardiac thrombi. DETAILS:After written informed consent was provided by the patient in a fasting, non-sedated state, the patient was brought to the procedure room, sedated by anesthesia, underwent LILIA which is reported separately and which was negative for intra-cardiac thrombus. The rhythm was then confirmed, sedation level deepened by anesthesia, and then given biphasic synchronized shock as below. The patient tolerated the procedure well, awoke from sedation with no sequelae. FINDINGS:Baseline rhythm: AF HR 70 bpmShock: 200 Joule x 1Final rhythm: NSR HR 60 bpm PLAN:D/c home today in 2 hours. Continue anticoagulation.[facility] MethodistECG Pre/Post [id number] 15:57:57 Test Item Value Reference Range Interpretation Comments Ventricular rate (test 70 code = 253) Atrial rate (test code 416 = 255) QRSD interval (test 168 code = 260) QT interval (test code 492 = 264) QTC interval (test code 531 = 265) QRS axis 1 (test code = 143 268) T wave axis (test code -23 = 270) EKG impression (test Ventricular-paced code = 273) rhythm-Abnormal ECG-In automated comparison with ECG of 27-OCT-2020 09:47,-No significant change was found- [place] MethodistTransesophageal Echocardiogram for [id number] 15:05:00Interface, Radiology Results In - 10/27/2020 3:05 PM CST Transesophageal Echo Report [address], [place], [place] [address] Pat.Name: JAYDEN SPARROW Pat.ID: [id number] .Date: 10/27/2020 Refer.MD: SAM GRAFF MD Exam Time: 11:44:00 AM Study Type:LILIA Height: 70in Weight: 191lb BSA: 2.05 m2 Age: 1 1940,80Y Sex: MALE BP: 131/83 HR: 69 bpm Sonogrphr: Nia Grant MD Pat. Stat.:Inpatient Room: 24 Study Status:Final Echo Event ID:[id number] Order ID: [id number] Procedures: Transesophageal Echo with Colorflow DopplerRace: C SUMMARY: No thrombus or mass is visualized in the LA or LA appendage.Mild mitral regurgitation.- FINDINGS: LILIA: The attending industrial trainer performed the LILIA procedure and was present for the entire duration. The patient was counseled and an informed consent was obtained. Topical and intravenous anesthesia was administered. The esophagus was intubated without difficulty. The probe was passed to the gastric fundus and all standard echocardiographic views were obtained. The patient tolerated the procedure well.LV: LV size is normal. LV EF is normal. Overall wall motion is normal. Estimated EF is 60-64%.RV: RV size is normal. RV systolic function is normal.LA: LA volume is enlarged. No thrombus or mass is visualized in the LA or LA appendage.RA: RA size is normal.AO: Mild atherosclerotic changes seen in the descending aorta.IGOR: No pericardial effusion.AV: No structural AV abnormalities noted.MV: No structural MV abnormalities noted. Mild mitral regurgitation. PV: No structural PV abnormalities noted.TV: No structural TV abnormalities noted.Rojas: Pulmonary vein velocity is consistent with normal left atrial pressures. LILIA: Anesthesia: Per Anesthesia ASA Class: 3Physician: Per Paige M.D. Apple Checker: Kwan Vidales LILIA BP HR Post LILIA BP HR 131/83 69 115/83 69Meds: Viscous xylocaine, Cetacaine spray to oropharynxCom plications: None Condition: Stable --MEASUREMENTS: 2DParasternal Long [place] Ao An 2.9 cm LVOT 2.5 cm Ao Rtd 3.7 cm Index 1.8 cm/m2 LVOT LVOT Area 4.9 cm2 Signed 10/27/2020 03:05 Karel Paige M.D. [facility] metabolic [id number] 06:53:00 Test Item Value Reference Interpretation Comments Range Glucose (test code 100 mg/dL 65-99 H Fasting = 2345-7) reference inter rosemary For someone wit hout known diabetes, a glucose valuebe tween 100 and 125 mg/ dL is consistent withprediabetes and should be confi rmed with afollow-up test. BUN (test code = 19 mg/dL 03-26 3094-0) Creatinine (test 1.06 mg/dL 0.70-1.18 For patient s >49 code = 2160-0) years of age, the reference limit for Creatinine is approximately 1 3% higher for peopleidentifie d as -Juana n. EGFR Non-Afr. 66 See_Comment [Automated me ssage] Norwegian (test code The syst em which = 3205) generated this result transmit chaitanya reference range : > OR = 60 mL/min/1.73m2. The reference range was not used to interpret this result as normal/abnormal . EGFR 77 See_Comment [Automated mes isadora] Norwegian (test code The syst em which = 76306-3) generated this result transmit chaitanya reference range : > OR = 60 mL/min/1.73m2. The reference range was not used to interpret this result as normal/abnormal . BUN/creatinine NOT APPLICABLE See_Comment [Automated message] ratio (test code = The syste m which 3097-3) generated this result transmit chaitanya reference range : 6 - 22 (calc). The reference range was not used to interpret this result as normal/abnormal . Sodium (test code = 144 mmol/L 186-608 0098-2) Potassium (test 4.2 mmol/L 3.5-5.3 code = 2823-3) Chloride (test code 106 mmol/L 98-110 = 5-0) CO2 (test code = 31 mmol/L 20-32 2028-05) Calcium (test code 9.5 mg/dL 8.6-10.3 = 53546-4) RAC (test code = Performing RAC) Organization Information: Site ID: [id number] Name: [facility] Address: [address] [place] [id number] Director: Howard Cueva Lab Interpretation Abnormal (test code = 96081-9) Ricki ColinProthrombin time with [id number] 06:53:00 Test Item Value Reference Range Interpretation Comments INR (test code = 1.1 Reference R elsy 6301-6) 0.9-1.1Moderate -i ntensity Warfar in Therapy 2.0-3.0Higher-i nt ensity Warfarin Therapy 3.0-4 .0 Prothrombin time 10.9 See_Comment For additio nal (test code = information, 5902-2) please refer tohttp://educat io n.[facility]/faq/FAQ10 4( This link is being provided for informational/e du cational purpos es only.) [Automated message] The system which generated this result transmitted reference range : 9.0 - 11.5 sec. The reference range was not used to interpr et this result as normal/abnormal . RAC (test code = Performing RAC) Organization Information: Site ID: [id number] Address: [address] [place] [id number] Director: Howard SampsonistECJun 12 [id number] 10:54:31 Test Item Value Reference Range Interpretation Comments Ventricular rate 70 (test code = 253) Atrial rate (test 258 code = 255) QRSD interval (test 174 code = 260) QT interval (test 464 code = 264) QTC interval (test 501 code = 265) QRS axis 1 (test code 131 = 268) T wave axis (test -50 code = 270) EKG impression (test ^^^ Poor data quality, code = 273) interpretation may be adversely affected-Electronic ventricular pacemaker-In automated comparison with ECG of 22-SEP-2019 14:58,-Vent. rate has increased BY 10 BPM- Ricki Colin
[2021-03-08] MEDS: MUPIROCIN 2% OINT 22GM TUBE TOP SCH ×2 (15:48→19:52)
[2021-03-08] MEDS: IPRATROPIUM BROM 0.5MG/2.5ML NEB SCH ×2 (16:30→23:15)
[2021-03-08] MEDS: Meropenem 500 MG/100 ML BAG IV SCH (16:39)
--- NOTE | 2021-03-08 16:54 | PN ---
Date of Progress Note: 03/08/2021 The patient states he feels significantly better today. He has had no further chills. The chills pr ompted him to come to the ER and he said he had a rather dark bowel movement just today which obvious ly may fit into the CT scan which showed some thickening and a node in the abdomen. His chest x-ray was negative. CT did show some ground-glass appearance, possibly early pneumonitis. We will repeat the chest x-ray in the morning. He stated he has not been short of breath until yesterday and he is currently on oxygen. Has not needed oxygen at home. He is also on amiodarone. It complicates his c hest situation somewhat. The posterior area in the lower part of the leg was punctured. Fluid was c ultured Bactroban and dressing were applied. Discussion was held with Dr. Beavers from Infectious Dis ease doctor and he decided to use meropenem and DC the Levaquin. Continue with vanc. He will be see n tomorrow. Thyroid ultrasound also to be addressed. We will discuss with family as his history is somewhat vague as far as timing is concerned, though he states he has seen physician office assistant in the past c ouple of months, Dr. Aguilar or Dr. Graff for his pacemaker. He states it has been stable and his cardia c status as far as he knows is also stable. We will get Cardiology to take a look at him as well. T he more likely etiology is his sepsis secondary to a cellulitis, which was rather marked and accordin g to the patient, the edema has been there for about a week and until like as mentioned he got the ch ill, He did not seek medical care and in retrospect, he feels he waited a little bit long, which was probably correct. We will bolus him to get his blood pressure up. Hold beta liza in the meantime . HR/MODL Voice ID: [id number] Report ID: [id number]
[2021-03-09] MEDS: Meropenem 500 MG/100 ML BAG IV SCH ×3 (00:56→16:00)
[2021-03-09] MEDS: VANCOMYCIN 1.5 GM in NA CHLORIDE 0.9% 500 ML IVPB SCH ×2 (03:00→20:57)
[2021-03-09 04:20] LABS: Absolute Lymphocytes (CBC) 7.4 K/uL (0.7-4.9); Basophils % 0.4 % (0-1.3); MPV 9.6 fL (7.6-11.3); RBC Red Blood Cell Count 3.25 M/uL (4.33-5.43)
[2021-03-09 04:32] LABS: ALT/SGPT 21 U/L (12-78); AST/SGOT 19 U/L (15-37); Albumin 2.4 g/dL (3.4-5.0); Alkaline Phosphatase 43 U/L (45-117); BUN Blood Urea Nitrogen 15 mg/dL (7-18); Bicarbonate 25 mmol/L (21-32); Bilirubin Total 0.8 mg/dL (0.2-1.0); Glucose Level 98 mg/dL (74-106); Potassium 3.2 mmol/L (3.5-5.1); Protein, Total 5.4 g/dL (6.4-8.2); Sodium Level 140 mmol/L (136-145)
[2021-03-09] MEDS: IPRATROPIUM BROM 0.5MG/2.5ML NEB SCH ×2 (07:45→15:17)
--- NOTE | 2021-03-09 07:48 | RAD REPORT ---
EXAM DESCRIPTION: RAD - Chest Pa And Lat (2 Views) - 03/09/2021 6:35 am CLINICAL HISTORY: pneumonia COMPARISON: CT chest March 08, portable chest March 08 TECHNIQUE: Frontal and lateral views of the chest were obtained. FINDINGS: The lungs are underinflated. There is patchy left base opacification present. The CT study showed opacification in the posterior gutter and base of the lingula. This could be pneumonia or ate lectasis. Cardiomegaly is present but stable. No significant vascular engorgement. Pacemaker remain s in place. No pneumothorax seen. Trace pleural fluid seen in the posterior gutter on the left. IMPRESSION: Shallow inspiration film showing pneumonia or atelectasis changes at the left lung base. Mild cardiomegaly, stable with chronic baseline interstitial opacification.
[2021-03-09] MEDS: MORPHINE 2 MG/ML SYR IV PRN (08:59)
[2021-03-09] MEDS: MUPIROCIN 2% OINT 22GM TUBE TOP SCH ×2 (09:02→20:57)
[2021-03-09] MEDS: AMIODARONE HCL 200 MG TAB PO SCH (09:02)
--- NOTE | 2021-03-09 10:32 | CON ---
Admitted to Dr. Lei on 03/08/2021. I am seeing the patient because of sepsis and cellulitis and peripheral arterial disease. History Of Present Illness: Mr. Millard is a 80-year-old who came into the hospital with fever, was found to have cellulitis. The patient denied any chest pain or shortness of breath. He denied any n ausea, vomiting, diaphoresis, PND, orthopnea, pedal edema, palpitations, or syncope. Allergies: NONE. Review of Systems: Negative. Social History: Negative. Family History: Negative. Medications: At home include amiodarone and metoprolol. Past Medical History: Include atrial fibrillation and hypertension. Physical Examination: Vital Signs: The patient was in normal sinus rhythm. Vital signs stable. Afebrile. HEENT: Negative. Neck: Supple with no bruit. Chest: Clear to auscultation and percussion. Cardiac: Revealed a regular rhythm and rate. No murmurs, gallops, or rubs. Abdomen: Benign Extremities: Revealed no clubbing, cyanosis, or edema. Diagnostic Data: Laboratory evaluation were all within normal limits. His white count is 10.9, hemo globin 10.3. Procalcitonin is 0.09. He had a CT for pulmonary embolus, which was negative. He was found to have a large mesenteric lymph node, possibly consistent with malignancy, splenomegaly, diver ticulosis, moderate atherosclerosis. No pulmonary embolus. Mild pulmonary edema versus early infect ion. Left thyroid nodule. Chest x-ray was actually negative. Extremity venous ultrasound was actua lly negative. EKG showed ventricular paced rhythm. Impression And Plan: Status post pacemaker here with sepsis, cellulitis. I do not see any evidence of pacemaker involvement. I would get an echocardiogram just to be sure he has paroxysmal atrial fib rillation for which he takes amiodarone. He has hypertension for which he takes metoprolol. He need followup on some of the CT finding including mesenteric lymph node. No further cardiac workup other than the echocardiogram at this point. We will continue to follow him as needed. LIT/HAILEY Voice ID: [id number] Report ID: [id number]
[2021-03-09] MEDS: D5 0.45 NS 1,000 ML IV SCH (11:02)
--- NOTE | 2021-03-09 11:59 | P.CNS ---
Date of Consult: 03/09/21 History of Present Illness: Patient is a 80-year-old male with a past medical history of atrial fibrillation and hypertension who presented to the emergency department due to fever, chills, and pain in legs. Patient was found to have left lower extremity cellulitis with blister formation. Blood cultures obtained, / g stain showed gram- negative rods, on awaiting full culture report. Patient empirically started on vancomycin and meropenem. Wound care to left lower extremity includes mupirocin ointment and wrapped Kerlix. Educated patent patient on importance of keeping the leg elevated. Patient currently denies nausea, vomiting, diarrhea, shortness breath, chest pain. Allergies No Known Allergies Allergy (Verified 08/07/13 09:54) Home Medications: Amiodarone HCl [Cordarone*] 1 tab PO DAILY 03/08/21 Cholecalciferol (Vitamin D3) [Vitamin D 400 IU TAB*] 1 tab PO DAILY 03/08/21 Metoprolol Succinate 25 mg PO DAILY 03/08/21 - Past Medical/Surgical History Diabetic: No -: afib -: prostate CA -: cardioversion, coretta knee replaced, coretta shoulder surgery -: melanoma removed, prostatectomy, hemorrhoid removed, appy -: tonsillectomy -: prostate CA-removed prostate -: pacemaker - Family History Father Medical History: Heart disease Mother History Unknown: Yes - Social History Smoking Status: Unknown if ever smoked Alcohol use: Yes CD- Drugs: No Caffeine use: Yes Place of Residence: Home Review of Systems 10-point ROS is otherwise unremarkable Physical Examination Temp Pulse Resp BP Pulse Ox 98.4 F 92 H 20 101/59 L 95 03/09/21 11:52 03/09/21 11:52 03/09/21 11:52 03/09/21 11:52 03/09/21 11:52 General: Alert, In no apparent distress, Oriented x3 HEENT: Atraumatic, Normocephalic Neck: Supple, 2+ carotid pulse no bruit Respiratory: Clear to auscultation bilaterally, Normal air movement Cardiovascular: No edema, Normal pulses, Regular rate/rhythm, Normal S1 S2 Capillary refill: <2 Seconds Gastrointestinal: Normal bowel sounds, Non-distended Integumentary: Other (Left lower extremity cellulitis: The erythema and swelling noted to left lower extremity. Blister formation to medial aspect, ruptured blister directly above ankle on anterior aspect of left friedman.) Laboratory Tests 03/08/21 03/08/21 03/08/21 00:20 00:20 00:20 WBC 11.20 H RBC 3.91 L Hgb 12.0 L Hct 36.9 L MCV 94.5 MCH 30.7 MCHC 32.4 RDW 15.9 H Plt Count 84 L MPV 9.1 Neutrophils % 27.8 L Lymphocytes % 70.4 H Monocytes % 0.5 L Eosinophils % 0.5 Basophils % 0.8 Absolute Neutrophils 3.1 Segmented Neutrophils 25 L Band Neutrophils 2 H Absolute Lymphocytes 7.9 H Lymphocytes 18 Monocytes 0 Absolute Monocytes 0.1 Eosinophils 1 Absolute Eosinophils 0.1 Absolute Basophils 0.1 Reactive Lymphocytes 54 Platelet Estimate Decr Morphology Comment Not seen PT INR APTT Sodium 141 Potassium 4.0 Chloride 108 H Carbon Dioxide 26 BUN 21 H Creatinine 1.03 Estimated GFR 70 L Glucose 122 H Lactic Acid 2.0 Calcium 8.6 Total Bilirubin 0.6 Direct Bilirubin 0.2 AST 21 ALT 22 Alkaline Phosphatase 69 Creatine Kinase 64 CK-MB (CK-2) 1.1 Rapid Troponin I 0.04 NT-Pro-B Natriuret Pep 440 Serum Total Protein 6.8 Albumin 3.3 L Globulin 3.5 Albumin/Globulin Ratio 0.9 L Amylase 45 Lipase 63 L Procalcitonin Urine pH Ur Specific [place] Glucose (UA)(Auto) Urine Ketones Urine Blood Urine Nitrite Ur Leukocyte Esterase Urine RBC Urine WBC Ur Squamous Epith Cells Urine Bacteria Urine Culture Reflexed Urine Total Protein SARS-CoV-2 RNA (RT-PCR) 03/08/21 03/08/21 03/08/21 00:20 00:20 00:22 WBC RBC Hgb Hct MCV MCH MCHC RDW Plt Count MPV Neutrophils % Lymphocytes % Monocytes % Eosinophils % Basophils % Absolute Neutrophils Segmented Neutrophils Band Neutrophils Absolute Lymphocytes Lymphocytes Monocytes Absolute Monocytes Eosinophils Absolute Eosinophils Absolute Basophils Reactive Lymphocytes Platelet Estimate Morphology Comment PT 13.3 H INR 1.15 APTT 23.2 L Sodium Potassium Chloride Carbon Dioxide BUN Creatinine Estimated GFR Glucose Lactic Acid Calcium Total Bilirubin Direct Bilirubin AST ALT Alkaline Phosphatase Creatine Kinase CK-MB (CK-2) Rapid Troponin I NT-Pro-B Natriuret Pep Serum Total Protein Albumin Globulin Albumin/Globulin Ratio Amylase Lipase Procalcitonin 0.09 H Urine pH Ur Specific [place] Glucose (UA)(Auto) Urine Ketones Urine Blood Urine Nitrite Ur Leukocyte Esterase Urine RBC Urine WBC Ur Squamous Epith Cells Urine Bacteria Urine Culture Reflexed Urine Total Protein SARS-CoV-2 RNA (RT-PCR) Negative 03/08/21 03/08/21 03/08/21 03:41 04:15 04:19 WBC RBC Hgb Hct MCV MCH MCHC RDW Plt Count MPV Neutrophils % Lymphocytes % Monocytes % Eosinophils % Basophils % Absolute Neutrophils Segmented Neutrophils Band Neutrophils Absolute Lymphocytes Lymphocytes Monocytes Absolute Monocytes Eosinophils Absolute Eosinophils Absolute Basophils Reactive Lymphocytes Platelet Estimate Morphology Comment PT INR APTT Sodium Potassium Chloride Carbon Dioxide BUN Creatinine Estimated GFR Glucose Lactic Acid Calcium Total Bilirubin Direct Bilirubin AST ALT Alkaline Phosphatase Creatine Kinase CK-MB (CK-2) Rapid Troponin I NT-Pro-B Natriuret Pep Cancelled Serum Total Protein Albumin Globulin Albumin/Globulin Ratio Amylase Lipase Procalcitonin Urine pH 5.0 Ur Specific [place] 1.010 Glucose (UA)(Auto) Negative Urine Ketones Negative Urine Blood Trace-lysed H Urine Nitrite Negative Ur Leukocyte Esterase Negative Urine RBC <5 Urine WBC <5 Ur Squamous Epith Cells <5 Urine Bacteria <20 Urine Culture Reflexed Not needed Urine Total Protein Negative SARS-CoV-2 RNA (RT-PCR) Conclusions/Impression: Antibiotics: vancomycin start: 03/08 stop: -- Meropenem Start: 03/08 stop: -- Assessment: -sepsis with bacteremia -left lower extremity cellulitis with blister formation -history of atrial fibrillation -anemia Plan: -source of sepsis: Likely left lower extremity cellulitis. Blood cultures obtained on 03/08: 4/4 g stains show gram-negative rods, awaiting culture report. Continue empiric IV antibiotic therapy with vancomycin and meropenem. Continue to monitor renal function. Will obtain repeat blood cultures tomorrow. -cellulitis: Continue to apply mupirocin ointment to ruptured blister, wrapped with Kerlix. Keep leg elevated. Venous Doppler showed no evidence of DVT. X- ray showed no signs of osteomyelitis. -medical management per primary team Continue monitor CBC and BMP Continue monitor signs infection Plan of care discussed with Dr. lei Thank you for consultation.
--- NOTE | 2021-03-09 16:38 | PN ---
Date of Progress Note: 03/09/2021 The patient remains afebrile. Cellulitis has improved considerably. He was seen by Infectious Disea se and Cardiology who later felt the utilization of the medication and presently holding the beta-blo cker keeping on amiodarone is indicated at present. He feels the pacemaker is not involved in the se psis and I agree with this. Suspect cellulitis is the source. We will continue on the present regim en. Discuss disposition with his family in regards specifically to present therapy and further evalu ation of probable node in the abdominal cavity. HR/MODL Voice ID: [id number] Report ID: [id number]
[2021-03-10] MEDS: Meropenem 500 MG/100 ML BAG IV SCH ×3 (00:51→17:19)
--- NOTE | 2021-03-10 08:02 | ECHO ---
HEIGHT: 5 ft 10 in WEIGHT: 184 lb 11.2 oz DATE OF STUDY: 03/09/[address]: Wilfred Crooks MD 2-DIMENSIONAL: YES M.MODE: YES DOPPLER: YES COLOR FLOW: YES TDS: NO PORTABLE: NO DEFINITY: NO BUBBLE STUDY: NO DIAGNOSIS: POSSIBLE SUB ACUTE BACTERIAL ENDOCARDITIS CARDIAC HISTORY: CATHERIZATION: YES SURGERY: NO PROSTHETIC VALVE: NO PACEMAKER: YES MEASUREMENTS (cm) DIASTOLIC (NORMALS) SYSTOLIC (NORMALS) IVSd 1.0 (0.6-1.2) LA Diam 3.3 (1.9-4.0) LVEF 63% LVIDd 5.4 (3.5-5.7) LVIDs 3.6 (2.0-3.5) %FS 34% LVPWd 1.1 (0.6-1.2) Ao Diam 3.4 (2.0-3.7) 2 DIMENSIONAL ASSESSMENT: RIGHT ATRIUM: NORMAL LEFT ATRIUM: NORMAL RIGHT VENTRICLE: NORMAL LEFT VENTRICLE: NORMAL TRICUSPID VALVE: NORMAL MITRAL VALVE: NORMAL PULMONIC VALVE: NORMAL AORTIC VALVE: NORMAL PERICARDIAL EFFUSION: NONE AORTIC ROOT: NORMAL LEFT VENTRICULAR WALL MOTION: NORMAL. DOPPLER/COLOR FLOW: MILD TRIUCSPID REGURGITATION - NORMAL RIGHT VENTRICULAR SYSTOLIC PRESSURE. COMMENTS: NORMAL EJECTION FRACTION. PACEMAKER CATHETER IN RIGHT VENTRICLE. NO SIGNS OF ENDOCARDITIS. TECHNOLOGIST: GUILLAUME MCCABE
[2021-03-10] MEDS: IPRATROPIUM BROM 0.5MG/2.5ML NEB SCH ×2 (08:58)
[2021-03-10] MEDS ORDERED: IPRATROPIUM BROM 0.5MG/2.5ML NEB PRN (09:28)
[2021-03-10] MEDS: MUPIROCIN 2% OINT 22GM TUBE TOP SCH ×2 (09:54→22:15)
[2021-03-10] MEDS: AMIODARONE HCL 200 MG TAB PO SCH (09:54)
[2021-03-10 10:02] LABS: Absolute Lymphocytes (CBC) 8.2 K/uL (0.7-4.9); Basophils % 0.9 % (0-1.3); Hematocrit 32.6 % (39.6-49.0); Lymphocytes % 66.9 % (15.3-44.8); MPV 9.7 fL (7.6-11.3); RBC Red Blood Cell Count 3.42 M/uL (4.33-5.43)
[2021-03-10 10:14] LABS: BUN Blood Urea Nitrogen 16 mg/dL (7-18); Bicarbonate 27 mmol/L (21-32); Glucose Level 139 mg/dL (74-106); Potassium 3.2 mmol/L (3.5-5.1); Sodium Level 142 mmol/L (136-145)
--- NOTE | 2021-03-10 10:57 | PN ---
Date of Progress Note: 03/10/2021 The patient's cellulitis has improved markedly, however, the leg has now developed multiple blisters, some anteriorly and some medial and posterior. The former is in size and deeper than the original. We will re-culture. He is afebrile and his white count is stable. His platelets have dropped some. We will continue to monitor this, keep him on the same antibiotics. He has a good I and O and cont inue to have PT work with him. His hemoglobin has dropped some and has a positive stool guaiac. We will re-evaluate and consider the possibility of prophylactic anticoagulation. HR/MODL Voice ID: [id number] Report ID: [id number]
[2021-03-10 11:58] LABS: Blood Morphology Comment NOT SEEN (NOT SEEN); Platelet Estimate DECR
[2021-03-10] MEDS: ENOXAPARIN 30 MG/0.3 ML SQ SCH (12:59)
[2021-03-10] MEDS ORDERED: POTASSIUM CL SA 10 MEQ TAB PO ONE ×2 (13:00→13:07)
[2021-03-10] MEDS: VANCOMYCIN 1.5 GM in NA CHLORIDE 0.9% 500 ML IVPB SCH (16:03)
--- NOTE | 2021-03-10 16:18 | PN ---
Subjective: The patient is lying in lying in bed. Denies any headache, nausea, vomiting, chest pain , abdominal pain, constipation, or diarrhea. His blisters to the right leg have been debrided today. Objective: Vital signs: Temperature 98, pulse 120, respiration 19, blood pressure 107/63. Lungs: Basal crackles. Heart: S1, S2. Regular. Abdomen: Soft, nontender. Bowel sounds present. Extremities: Right lower extremity 2+ edema. Blisters which has been opened up noted. No erythemat ous changes and increased warmth to the leg also noted from ankle to the right knee level. Laboratory Data: Shows WBC 12.2, hemoglobin 10.5, platelets are 63. Chemistry; sodium 142, potassiu m 3.2, chloride 111, bicarb 27, BUN 16, creatinine 0.7, glucose is 130. Micro data, cultures are pending. Currently, the patient is on vanco and meropenem. Assessment And Plan: Right lower extremity cellulitis, most likely secondary to trauma; thrombocytop enia, history of splenic tumor; sepsis with possible bacteremia. Continue antibiotic for 2 weeks. C an be switched to oral if cultures are negative. Keep leg elevated when possible. History of atrial fibrillation cellulitis with blister formation. Continue supportive care. We will follow the patie nt as needed. NF/MODL Voice ID: [id number] Report ID: [id number]
[2021-03-10] MEDS: METOPROLOL XL 25 MG TAB PO ONE (17:20)
[2021-03-10] MEDS: ACETAMINOPHEN 325 MG TABLET PO PRN (23:03)
[2021-03-11] MEDS: Meropenem 500 MG/100 ML BAG IV SCH ×2 (01:37→09:18)
[2021-03-11] MEDS: METOPROLOL XL 25 MG TAB PO SCH (05:15)
[2021-03-11 05:24] LABS: Basophils % 0.8 % (0-1.3); Hematocrit 30.2 % (39.6-49.0); Lymphocytes % 71.5 % (15.3-44.8); RBC Red Blood Cell Count 3.16 M/uL (4.33-5.43)
[2021-03-11 05:41] LABS: BUN Blood Urea Nitrogen 18 mg/dL (7-18); Bicarbonate 29 mmol/L (21-32); Glucose Level 88 mg/dL (74-106); Potassium 3.9 mmol/L (3.5-5.1); Sodium Level 145 mmol/L (136-145)
[2021-03-11 07:06] LABS: Blood Morphology Comment NOT SEEN (NOT SEEN); Platelet Estimate DECR
[2021-03-11] MEDS: ENOXAPARIN 30 MG/0.3 ML SQ SCH ×2 (09:00→11:06)
[2021-03-11] MEDS: AMIODARONE HCL 200 MG TAB PO SCH (09:19)
[2021-03-11] MEDS: MUPIROCIN 2% OINT 22GM TUBE TOP SCH ×2 (09:20→20:58)
[2021-03-11] MEDS: DOXYCYCLINE 100 MG in NA CHLORIDE 0.9% 100 ML IVPB SCH ×2 (09:20→20:57)
[2021-03-11] MEDS: VANCOMYCIN 1.5 GM in NA CHLORIDE 0.9% 500 ML IVPB SCH (10:54)
[2021-03-11] MEDS: CEFTRIAXONE/SWI 2gm 2 GM/20 ML SYR IVP SCH (13:04)
[2021-03-11] MEDS: D5W 1,000 ML IV SCH (13:04)
[2021-03-11] MEDS ORDERED: IPRATROPIUM BROM 0.5MG/2.5ML NEB PRN (14:00)
[2021-03-11] MEDS: METOPROLOL XL 25 MG TAB PO ONE (17:02)
[2021-03-11] MEDS: TEMAZEPAM 15 MG CAP PO PRN (21:59)
[2021-03-12] MEDS: METOPROLOL XL 25 MG TAB PO SCH (06:15)
[2021-03-12] MEDS: MUPIROCIN 2% OINT 22GM TUBE TOP SCH ×2 (09:00→17:10)
[2021-03-12] MEDS: CEFTRIAXONE/SWI 2gm 2 GM/20 ML SYR IVP SCH (09:13)
[2021-03-12] MEDS: DOXYCYCLINE 100 MG in NA CHLORIDE 0.9% 100 ML IVPB SCH ×2 (09:13→20:44)
[2021-03-12] MEDS: AMIODARONE HCL 200 MG TAB PO SCH (09:14)
[2021-03-12] MEDS: ENOXAPARIN 30 MG/0.3 ML SQ SCH (09:14)
--- NOTE | 2021-03-12 12:32 | PN ---
Date of Progress Note: 03/10/2021 Mr. Millard came in with fever of unknown origin. Has had a pacemaker placement. I was asked by Dr. Lei to see him to rule out endocarditis. An echocardiogram, which was done on 03/09/2021 showed normal ejection fraction. Pacemaker in the right ventricle. No evidence of endocarditis or ___ infection. The patient has improved clinically since he has been in the hospital. I am comforta ble with him going home whenever it is okay with Dr. Lei. He does have cellulitis that is improv ing, paroxysmal atrial fibrillation, on amiodarone and takes metoprolol for hypertension. There is a mesenteric lymph node that was found and Dr. Lei will follow up on that with CT scan. LIT/HAILEY Voice ID: [id number] Report ID: [id number]
[2021-03-12 15:10] LABS: Absolute Lymphocytes (CBC) 6.2 K/uL (0.7-4.9); Basophils % 0.6 % (0-1.3); Hematocrit 31.1 % (39.6-49.0); Lymphocytes % 75.7 % (15.3-44.8); MPV 9.1 fL (7.6-11.3); RBC Red Blood Cell Count 3.28 M/uL (4.33-5.43)
[2021-03-12 15:33] LABS: ALT/SGPT 13 U/L (12-78); AST/SGOT 15 U/L (15-37); Albumin 1.8 g/dL (3.4-5.0); Alkaline Phosphatase 77 U/L (45-117); BUN Blood Urea Nitrogen 14 mg/dL (7-18); Bicarbonate 27 mmol/L (21-32); Bilirubin Total 0.3 mg/dL (0.2-1.0); Glucose Level 129 mg/dL (74-106); Potassium 3.2 mmol/L (3.5-5.1); Sodium Level 143 mmol/L (136-145)
[2021-03-12] MEDS ORDERED: LIDOCAINE 5% OINT 30 GM TUBE TOP ONE (16:00)
[2021-03-12] MEDS ORDERED: POTASSIUM 25 MEQ EFFERV TAB PO ONE (16:01)
[2021-03-12] MEDS: VANCOMYCIN 1.5 GM in NA CHLORIDE 0.9% 500 ML IVPB SCH (16:07)
--- NOTE | 2021-03-12 19:11 | PN ---
Date of Progress Note: 03/11/2021 Subjective: The patient seems to feel somewhat better today. The leg edema has gone down significan tly. There is still some ecchymotic and erythematous area as well as some small blister formation, l aterally ruptured. His white count has dropped. His vital signs are stable. We will add back the b eta-liza as he has some extra beats and I have added Lovenox as well. The case was discussed with Dr. Beavers. Later in the day, the culture came back as positive for a member of the ; how ever, after checking the labs there is no question that this came from the blood and type; therefore, Dr. Beavers felt it was coe to switch antibiotics to Rocephin and doxycycline and hold th e present regimen of meropenem and vancomycin. This was done. The specimen will be sent to [facility] for confirmation. HR/MODL Voice ID: [id number] Report ID: [id number]
--- NOTE | 2021-03-12 19:26 | PN ---
Date of Progress Note: 03/12/2021 The patient states he does not feel quite as low as yesterday. He is fatigued and evaluation of his leg does reveal slight progression of the cellulitis distally, no significant change proximally, but more new blister formation, the latter were debrided, and there was some deep areas which I think may necessitate debridement under IV sedation. His white count has improved. Afebrile. However, due t o the progression of his cellulitis, I think it would be prudent to add the vancomycin back into the regimen. Continue with the doxy and Rocephin. In view of his possibility of the deep debridement in some areas, we will consult Dr. Luu. HR/MODL Voice ID: [id number] Report ID: [id number]
[2021-03-12] MEDS: ACETAMINOPHEN 325 MG TABLET PO PRN (20:42)
[2021-03-12] MEDS: D5W 1,000 ML IV SCH (20:44)
[2021-03-13] MEDS: TEMAZEPAM 15 MG CAP PO PRN ×2 (03:14→20:07)
[2021-03-13 04:14] LABS: Absolute Lymphocytes (CBC) 6.4 K/uL (0.7-4.9); Basophils % 0.6 % (0-1.3); Hematocrit 30.2 % (39.6-49.0); Lymphocytes % 78.2 % (15.3-44.8); MPV 8.5 fL (7.6-11.3); RBC Red Blood Cell Count 3.19 M/uL (4.33-5.43)
[2021-03-13 04:27] LABS: ALT/SGPT 16 U/L (12-78); AST/SGOT 14 U/L (15-37); Albumin 1.9 g/dL (3.4-5.0); Alkaline Phosphatase 74 U/L (45-117); BUN Blood Urea Nitrogen 15 mg/dL (7-18); Bicarbonate 28 mmol/L (21-32); Bilirubin Total 0.5 mg/dL (0.2-1.0); Glucose Level 98 mg/dL (74-106); Potassium 3.4 mmol/L (3.5-5.1); Protein, Total 5.2 g/dL (6.4-8.2); Sodium Level 144 mmol/L (136-145)
[2021-03-13] MEDS: AMIODARONE HCL 200 MG TAB PO SCH (07:48)
[2021-03-13] MEDS: ENOXAPARIN 30 MG/0.3 ML SQ SCH (07:48)
[2021-03-13] MEDS: METOPROLOL XL 25 MG TAB PO SCH (07:48)
[2021-03-13] MEDS: MUPIROCIN 2% OINT 22GM TUBE TOP SCH (07:48)
[2021-03-13] MEDS: DOXYCYCLINE 100 MG in NA CHLORIDE 0.9% 100 ML IVPB SCH ×2 (08:00→21:51)
[2021-03-13] MEDS: CEFTRIAXONE/SWI 2gm 2 GM/20 ML SYR IVP SCH (08:00)
[2021-03-13] MEDS ORDERED: POTASSIUM CL SA 10 MEQ TAB PO ONE ×2 (09:00→16:00)
[2021-03-13] MEDS: VANCOMYCIN 1.5 GM in NA CHLORIDE 0.9% 500 ML IVPB SCH (09:00)
[2021-03-13] MEDS ORDERED: Ringers Lactate 1,000 ML IV ONE (09:43)
[2021-03-13] MEDS ORDERED: COLLAGENASE 30 GM OINTMENT TOP ONE (09:52)
[2021-03-13] MEDS ORDERED: FENTANYL CITR 100 MCG/2 ML ONE (09:57)
[2021-03-13] MEDS ORDERED: LIDOCAINE 1% MPF 5 ML VIAL ONE (09:57)
[2021-03-13] MEDS ORDERED: propofoL 200 MG/20 ML VIAL IV ONE (09:57)
[2021-03-13] MEDS ORDERED: SILVER SULFADIAZINE 1% 50 GM TOP ONE (10:28)
--- NOTE | 2021-03-13 10:44 | P.BOP ---
Preoperative diagnosis: cellulitis with necrotic wounds right leg, sepsis Postoperative diagnosis: same Primary procedure: Excisional debridement subQ necrotic wounds right leg 45 x 20 cm Estimated blood loss: <50cc Specimen: necrotic wound Findings: see dicta Anesthesia: General Complications: None Transferred to: Recovery Room Condition: Good
--- NOTE | 2021-03-13 13:48 | CON ---
Date of Consultation: 03/13/2021 Reason For Service: Right lower extremity cellulitis with necrotic wounds. History Of Present Illness: This is a case of a 80-year-old patient who comes to me into the [facility] with multiple medical problems including AFib, also found to have cellulitis of the right lower ext remity. Despite antibiotics and treatment at the bedside, has not improved, developing more tis carlos manuel, so a surgical consult was obtained for surgical debridement. He does not remember any specific reason for this. He is not really walking outside. Even though it has been raining for few weeks, tevin ellison has not been at any river or even at the beach. He started with redness and developed into this. Denies any dysuria, hematuria, hematochezia, melena. He denies any recent traveling out of the [facility], denies any family member sick at home. Allergies: NONE. Past Medical History: AFib, prostate cancer, history of melanoma and pacemaker. Past Surgical History: Include prostatectomy, tonsillectomy, hemorrhoidectomy, appendectomy, melanom a excision, and bilateral knee replacement, also bilateral shoulder surgery. Family History: Include a heart disease. Social Habits: Denies any drinking or smoking. Review of Systems: See H and P, 10 points otherwise unremarkable. Physical Examination: General: The patient is awake, alert. Eyes: Pupils anicteric. Neck: Supple. Chest: Clear. Abdomen: Soft and depressible. Extremities: The patient has erythema come with just below-knee down to the foot with multiple petec hiae forming and blisters. The extent of the injury is difficult to say. Once we cleaned it, we franklyn l have a better understanding of how deep it is. No bone or tendon exposed. Peripheral pulses still present. No calf tenderness. Laboratory Data: WBC count is 8.2, hemoglobin of 9.9. INR of 1.15 and potassium is 3.4. X-ray of t he tibia-fibula shows no fracture, no evidence of bone deformity suggest any osteomyelitis . Venous Doppler shows no DVT in the right lower extremity. Assessment: A 80-year-old patient with cellulitis of the leg and necrotic wound and request for surg ical debridement was done and the patient is going for surgery for debridement of the right leg with benefits, alternatives, and risks include, but not limited to infection, bleeding, damage to adjacent structures, anesthesia complication, nonhealing wound, PA, and . He also understands this may not relieve symptoms. He might need more than one surgical intervention. He understands he will req uire wound care. MAGALY/HAILEY Voice ID: [id number] Report ID: [id number]
--- NOTE | 2021-03-13 14:00 | PN ---
Date of Progress Note: 03/13/2021 The patient underwent debridement this morning. He seems comfortable when seen this afternoon. [place], he has developed cellulitis and presumably a superficial thrombophlebitis in the bicipital area on the left. We will do a Doppler to make sure there is no deep component and continue him on his pr esent regimen. Awaiting the reports from [place] in regard to the mass in his abdomen seen on CT sca n. If present, the possibility of it playing a significant part in is immunosuppressive state is les s likely if it is new. We will continue to monitor. HR/MODL Voice ID: [id number] Report ID: [id number]
[2021-03-13] MEDS: MORPHINE 2 MG/ML SYR IV PRN ×2 (15:02→20:18)
--- NOTE | 2021-03-13 19:31 | RAD REPORT ---
EXAM DESCRIPTION: US - UPPER EXTREMITY VENOUS UNILATE - 03/13/2021 7:17 pm CLINICAL HISTORY: Left arm pain and swelling COMPARISON: None. TECHNIQUE: Real-time sonographic evaluation of the left upper extremity deep venous systems was perf ormed. FINDINGS: Normal compressibility, flow augmentation, phasic flow and spontaneous flow are identified in the left upper extremity deep venous system. No intraluminal filling defects seen in the deep elida ous system. Internal jugular and subclavian veins are normal as well. Thrombus is present in the most of superficial left basilic vein. IMPRESSION: No DVT in the left upper extremity. Superficial venous thrombosis is present in the left basilic vein.
--- NOTE | 2021-03-13 20:36 | OP ---
Date of Procedure: 03/13/2021 Surgeon: Tj Luu MD Preoperative Diagnosis: Cellulitis of right leg with necrotic wounds extensive with sepsis. Postoperative Diagnosis: Cellulitis of right leg with necrotic wounds extensive with sepsis. Procedure: Excisional debridement of subcutaneous necrotic wound, right leg about 45 cm x 20 cm. Anesthesia: General. Findings: This patient has a wound extending from the just below-knee to the dorsum of the foot, mickey ost circumferential, multiple clogged blood vessels with severe vasculitis. The wound gets deeper at the area of the anterior lower leg and with the wound that goes all the way almost to fascia, althou gh does not penetrate the fascia or the muscle. That area could be the cause of this extending throu gh the 45 cm from there. Condition: Stable. Indications: This is the case of a 80-year-old patient with several days history of cellulitis, amira re, necrotic wounds of the lower extremities. A surgical consult was obtained for immediate surgical debridement. Benefits, alternatives, and risks were fully explained, which include, but not limited to infection, bleeding, damage to adjacent structures, anesthesia complication, nonhealing wound, DC , and even . He also understands this may not relieve his symptoms. He might need more than on e surgical intervention. He understood, signed a consent. Procedure In Detail: The patient was brought to the operating room, placed in supine position. Anes thesia was done without complication. Time-out was called. Right leg was prepped and draped in usua l sterile fashion. We have a necrotic wound and severe vasculitis with microcirculation and multiple blood vessels thrombosed over the skin and dermis region, right lower extremity. After we prepped t he area in usual sterile fashion, we proceeded to debride this with the help of an 11 blade and help of a curette. That left an extensive area open. We noticed that 1 point and the deepest point is in the anterior lower leg that area goes deep, but does not penetrate the fascia or the muscle. Area w as irrigated. Hemostasis was obtained. The area was packed and covered with Silvadene and sterile d ressings on top. The patient tolerated the procedure well. The patient went to Recovery in stable c ondition. HM/MODL Voice ID: [id number] Report ID: [id number]
[2021-03-14] MEDS: VANCOMYCIN 1.5 GM in NA CHLORIDE 0.9% 500 ML IVPB SCH ×2 (03:38→21:38)
[2021-03-14 04:20] LABS: RBC Red Blood Cell Count 3.22 M/uL (4.33-5.43)
[2021-03-14 04:21] LABS: Absolute Lymphocytes (CBC) 7.5 K/uL (0.7-4.9); Basophils % 0.4 % (0-1.3); Hematocrit 30.3 % (39.6-49.0); MPV 8.9 fL (7.6-11.3)
[2021-03-14 04:24] LABS: ALT/SGPT 18 U/L (12-78); AST/SGOT 20 U/L (15-37); Albumin 1.9 g/dL (3.4-5.0); Alkaline Phosphatase 65 U/L (45-117); BUN Blood Urea Nitrogen 13 mg/dL (7-18); Bicarbonate 28 mmol/L (21-32); Bilirubin Total 0.7 mg/dL (0.2-1.0); Glucose Level 106 mg/dL (74-106); Potassium 3.9 mmol/L (3.5-5.1); Protein, Total 5.3 g/dL (6.4-8.2); Sodium Level 141 mmol/L (136-145)
[2021-03-14] MEDS: METOPROLOL XL 25 MG TAB PO SCH (05:44)
[2021-03-14] MEDS: DOXYCYCLINE 100 MG in NA CHLORIDE 0.9% 100 ML IVPB SCH (08:00)
[2021-03-14] MEDS: ENOXAPARIN 30 MG/0.3 ML SQ SCH (08:44)
[2021-03-14] MEDS: AMIODARONE HCL 200 MG TAB PO SCH (08:44)
[2021-03-14] MEDS: CEFTRIAXONE/SWI 2gm 2 GM/20 ML SYR IVP SCH (08:58)
[2021-03-14] MEDS ORDERED: POTASSIUM CL SA 10 MEQ TAB PO ONE (09:00)
[2021-03-14] MEDS: SILVER SULFADIAZINE 1% 50 GM TOP SCH (09:40)
[2021-03-14] MEDS: ACETAMINOPHEN 325 MG TABLET PO PRN (09:52)
--- NOTE | 2021-03-14 14:09 | P.PN ---
Subjective Date of Service: 03/14/21 Patient seen examined at bedside, status post excisional debridement of necrotic wound on 03/[address] Luu. Leg is currently wrapped, continue wound care orders per surgery team. Repeat blood cultures taken on 03/10: No growth to date. Continue vancomycin and meropenem. Review of Systems 10-point ROS is otherwise unremarkable Physical Examination - Vital Signs Temperature: 97.5 F Blood Pressure: 128/61 Pulse: 72 Respirations: 18 Pulse Ox (%): 93 - Studies Microbiology 03/08/21 00:50 Blood - Blood Aerobic Blood Culture - Preliminary Vibrio Cholerae 03/08/21 00:50 Blood - Blood Blood Culture Gram Stain - Final 03/08/21 00:50 Blood - Blood Anaerobic Blood Culture - Final 03/08/21 00:50 Blood - Blood Gram Stain - Final 03/08/21 00:20 Blood - Blood Aerobic Blood Culture - Preliminary Vibrio Cholerae 03/08/21 00:20 Blood - Blood Blood Culture Gram Stain - Final 03/08/21 00:20 Blood - Blood Anaerobic Blood Culture - Final 03/08/21 00:20 Blood - Blood Gram Stain - Final 03/08/21 00:22 Nasopharnyx Influenza Type A Antigen Screen - Final 03/08/21 00:22 Nasopharnyx Influenza Type B Antigen Screen - Final Assessment And Plan - Plan Physical Exam: General: Alert, In no apparent distress, Oriented x3 HEENT: Atraumatic, Normocephalic Neck: Supple, 2+ carotid pulse no bruit Respiratory: Clear to auscultation bilaterally, Normal air movement Cardiovascular: No edema, Normal pulses, Regular rate/rhythm, Normal S1 S2 Capillary refill: <2 Seconds Gastrointestinal: Normal bowel sounds, Non-distended Integumentary: Other (Left lower extremity cellulitis: Status post excisional debridement performed by Dr. Luu on 03/13. Leg is currently wrapped . Conclusions/Impression: Assessment: -sepsis with bacteremia -left lower extremity cellulitis with blister formation -history of atrial fibrillation -anemia Plan: -source of sepsis: Likely left lower extremity cellulitis. Blood cultures obtained on 03/08: 4/ grew Vibrio cholerae, sent out to confirm. Repeat blood cultures taken on 03/10 negative. Antibiotics have been adjusted during duration of hospital stay, patient has been on combination of vancomycin, Rocephin, and doxycycline. Current antibiotic therapy includes vancomycin meropenem. Patient will need IV antibiotics for 2 weeks following a negative blood culture report. Negative blood culture report on 03/10. Vancomycin trough goal of 10-15, a order trough level after 4th dose. Continue to monitor renal function. -cellulitis: Wound care per surgical team. -medical management per primary team Continue monitor CBC and BMP Continue monitor signs infection Plan of care discussed with Dr. lei Thank you for consultation.
[2021-03-14] MEDS: Meropenem 500 MG/100 ML BAG IV SCH (16:00)
--- NOTE | 2021-03-14 16:54 | PN ---
Basically status quo. The wound is still erythematous. Necrotic area is obviously changed since the procedure and the cellulitis is still present as well. He has also noted a thrombus small in the ri ght arm at this stage secondary to the IV site and this was moved. A bicipital thrombus inside and c ellulitis showed marked improvement in the cellulitis and a superficial thrombus in the basilic vein was confirmed by ultrasound. Will discuss the use of the antibiotic with the Infectious Disease when they make rounds and with Dr. Flores as far as anticoagulation. HR/MODL Voice ID: [id number] Report ID: [id number]
[2021-03-14 18:27] LABS: RBC Red Blood Cell Count 3.15 M/uL (4.33-5.43)
[2021-03-14 19:29] LABS: C-Reactive Protein 73.9 mg/L (<3.00); Ferritin 462.3 ng/mL (26-388); Folic Acid, (Folate) 6.5 ng/mL (3.1-17.5)
[2021-03-14] MEDS: TEMAZEPAM 15 MG CAP PO PRN (22:45)
[2021-03-15] MEDS: Meropenem 500 MG/100 ML BAG IV SCH ×3 (00:24→16:16)
--- NOTE | 2021-03-15 01:26 | CON ---
Date of Consultation: 03/14/2021 Reason For Consultation: Superficial phlebitis and thrombocytopenia. History Of Present Illness: Mr. Millard is a 80-year-old gentleman, very well known to me from the [facility]cology Clinic, where he has been followed for marginal zone lymphoma (low-grade non-Hodgkin lymphoma) since 2016. He has been asymptomatic for the lymphoma and has not needed any chemotherapy. He was hospitalized from the emergency room on 03/08/2021 when he presented with redness, pain of the right lower extremity along with chills, rigors, and fever. His symptoms had started with the redness and swelling a few days prior to the presentation to the emergency room. When he developed the rigors and fever, his temperature was 103 Fahrenheit in the ER. He was diagnosed with cellulitis and possible sepsis in the ER and was hospitalized for IV antibiotics and management of the same. A venous Doppler of the right lower extremity on 03/13/2021 revealed no deep vein thrombosis. He developed some redness and tenderness of the left upper extremity. A Doppler on 03/13/2021 revealed no acute deep vein thrombosis, there was superficial thrombosis in the left basilic vein. Mr. Millard's platelet count has been low since before 2015 and I was consulted regarding management of the thrombophlebitis given the thrombocytopenia. He reports that he is feeling better. Denies any fevers or chills in the past 48 hours. Denies any previous history of cellulitis, though he says he has had a venous ulcer on the same leg more than 20 years ago, treated successfully. He denies history of recurrent fevers, unexplained weight loss, or drenching night sweats. He said he had been doing well until this recent infection. He denies any history of headaches, dizziness, or diplopia. There is no complaints of cough, sputum, or shortness of breath. He reports that his fatigue had been much improved since he had his pacemaker replaced within the past year. There is no history of abdominal pain, nausea, vomiting, or diarrhea. He reports no dysuria, urgency, or frequency of urination. Past Medical History: Significant for, 1. Atrial fibrillation. 2. History of prostate cancer. 3. History of melanoma. 4. Lower GI bleed in 2012. 5. Marginal zone lymphoma diagnosed in 2015. Past Surgical History: Significant for, 1. Left knee replacement. 2. Right knee replacement. 3. Radical prostatectomy. 4. Melanoma resection from the mid back in 1997. 5. Pacemaker placement, most recent in 2020. Current Medications: As follows: Amiodarone 200 mg p.o. daily, Lovenox 30 mg subcu daily, Atrovent nebulizer q.8 hours p.r.n., meropenem 500 mg IV q.8 hours, metoprolol 25 mg p.o. q.a.m., morphine 2 mg IV q.4 hours p.r.n. for pain, Zofran 4 mg IV q.8 hours p.r.n. for nausea and vomiting, temazepam 15 mg p.o. at bedtime p.r.n. for insomnia, and vancomycin 1.5 g IV q.18 hours. Allergies: HE HAS NO KNOWN DRUG ALLERGIES. Social And Family History: Mr. Millard is a gentleman. He has 2 sons. He was an ex-smoker, smoked approximately a quarter of a pack a day for about 10 years, quit in his 40s. He drinks alcohol rarely socially. Physical Examination: General: Today, he was resting comfortably when I saw him this evening. On physical examination, he appeared pale. Vital Signs: Temperature was 97.2 Fahrenheit, pulse 70, respirations 17, blood pressure 110/69, oxygen saturation between 93% and 96% on room air. HEENT: Examination revealed no thrush or mucositis. There is no palpable lymphadenopathy in the neck, axilla, or groin. Skin: Examination revealed redness and cording of the veins of his forearm on the left and some redness along the right antecubital area. Chest: Clear to auscultation. Heart: Sounds reveal normal S1, S2. No gallops or murmurs. Abdomen: Soft and nontender. Liver and spleen were not palpable. Bowel sounds were present. Neurologic: He was alert and oriented with no acute deficits. Extremities: Lower extremity examination revealed redness and warmth of the right leg, [id number]. It was mostly wrapped, but visible portions of the foot showed evidence of petechiae within the erythema. Laboratory Data: Revealed a white count of 9500, hemoglobin 10.1, hematocrit 30.3, platelet count was 85,000 this morning. His differential showed 18% neutrophils for an absolute neutrophil count of 1800, absolute lymphocyte count was 7500. Chemistries reveal normal sodium and potassium. BUN was 13, creatinine 0.48, glucose 106. His albumin was decreased at 1.9. Assessment And Plan: 1. Superficial thrombophlebitis of the left basilic vein. a. This happened in the setting of an acute infection, sepsis, and IV sticks. He was put on Lovenox 30 mg SQ daily for deep vein thrombosis prophylaxis, I would recommend we increase back to 40 mg SQ daily. Avoid NSAIDs given his thrombocytopenia. b. He is asymptomatic for this thrombophlebitis. Rest and elevation with ice would be recommended. There is no need for therapeutic anticoagulation unless there is evidence of progression of the thrombophlebitis with symptoms or evidence of deep vein thrombosis. 2. Marginal zone lymphoma. This is a low-grade lymphoma, he has been asymptomatic for it. The splenomegaly was present at baseline in 2016 as well, as was the thrombocytopenia. I see no significant change in symptoms or lab results other than an anemia, which could be explained based on his current hospitalization. We will continue to follow him as outpatient for the marginal zone lymphoma and treatment indicated. 3. Anemia. His baseline hemoglobin runs around 12.5 g/dL, the current hemoglobin is a deviation from his baseline. We will proceed with a workup of anemia to rule out iron deficiency, B12 and folate deficiency, and/or chronic infection. The anemia could be due to his marginal zone lymphoma, in that case he would need therapy most likely as an outpatient. 4. Thrombocytopenia. His baseline platelet count runs around 50,000. The current count of 85,000 is better than his usual baseline. Would hold Lovenox only if platelet count is less than 30,000. Would suggest to transfuse platelets if his count is less than 50,000 and there is evidence of significant blood loss. 5. Leukocytosis. Mr. Millard's baseline white blood cell count runs between 15,000 to 20,000 with predominantly lymphocytes. We will follow. AP/MODL Voice ID: [id number] Report ID: [id number] [facility]
[2021-03-15 04:09] LABS: Absolute Lymphocytes (CBC) 6.3 K/uL (0.7-4.9); Basophils % 0.6 % (0-1.3); Hematocrit 28.5 % (39.6-49.0); Lymphocytes % 77.9 % (15.3-44.8); MPV 8.8 fL (7.6-11.3); RBC Red Blood Cell Count 3.02 M/uL (4.33-5.43)
[2021-03-15 04:44] LABS: ALT/SGPT 20 U/L (12-78); AST/SGOT 20 U/L (15-37); Albumin 1.8 g/dL (3.4-5.0); Alkaline Phosphatase 65 U/L (45-117); BUN Blood Urea Nitrogen 14 mg/dL (7-18); Bicarbonate 28 mmol/L (21-32); Bilirubin Total 0.6 mg/dL (0.2-1.0); Glucose Level 91 mg/dL (74-106); Protein, Total 4.9 g/dL (6.4-8.2); Sodium Level 142 mmol/L (136-145)
[2021-03-15 05:21] LABS: Blood Morphology Comment NOT SEEN (NOT SEEN); Platelet Estimate DECR
[2021-03-15] MEDS: METOPROLOL XL 25 MG TAB PO SCH (05:35)
[2021-03-15] MEDS: MORPHINE 2 MG/ML SYR IV PRN (10:20)
[2021-03-15] MEDS: SILVER SULFADIAZINE 1% 50 GM TOP SCH (10:22)
[2021-03-15] MEDS: AMIODARONE HCL 200 MG TAB PO SCH (10:23)
[2021-03-15] MEDS: ENOXAPARIN 40 MG/0.4 ML SQ SCH (10:23)
--- NOTE | 2021-03-15 11:06 | P.PN ---
Subjective Date of Service: 03/15/21 Patient seen examined at bedside, wound examined today excessive drainage and bleeding noted from wound. We have spoke with IM and we believe it would be best for the patient to continue wound care and IV antibiotic therapy at [facility]. Consult placed for director social service. To wound: Apply a Medihoney and and wrapped with Kerlix. Continue to elevate the leg. Doxycycline avid say antibiotic regimen. Review of Systems 10-point ROS is otherwise unremarkable Physical Examination - Vital Signs Temperature: 97.3 F Blood Pressure: 119/64 Pulse: 63 Respirations: 18 Pulse Ox (%): 97 - Studies Laboratory Last Values WBC 11.20 K/uL (4.3-10.9) H 03/08/21 00:20 RBC 3.91 M/uL (4.33-5.43) L 03/08/21 00:20 Hgb 12.0 g/dL (13.6-17.9) L 03/08/21 00:20 Hct 36.9 % (39.6-49.0) L 03/08/21 00:20 MCV 94.5 fL (80-100) 03/08/21 00:20 MCH 30.7 pg (27.0-35.0) 03/08/21 00:20 MCHC 32.4 g/dL (32.0-36.0) 03/08/21 00:20 RDW 15.9 % (12.1-15.2) H 03/08/21 00:20 Plt Count 84 K/uL (152-406) L 03/08/21 00:20 MPV 9.1 fL (7.6-11.3) 03/08/21 00:20 Neutrophils % 27.8 % (41.7-73.7) L 03/08/21 00:20 Lymphocytes % 70.4 % (15.3-44.8) H 03/08/21 00:20 Monocytes % 0.5 % (3.3-12.3) L 03/08/21 00:20 Eosinophils % 0.5 % (0-4.4) 03/08/21 00:20 Basophils % 0.8 % (0-1.3) 03/08/21 00:20 Absolute Neutrophils 3.1 K/uL (1.8-8.0) 03/08/21 00:20 Segmented Neutrophils 25 % (40-80) L 03/08/21 00:20 Band Neutrophils 2 % (0-1) H 03/08/21 00:20 Absolute Lymphocytes 7.9 K/uL (0.7-4.9) H 03/08/21 00:20 Lymphocytes 18 % (15-42) 03/08/21 00:20 Monocytes 0 % (0-10) 03/08/21 00:20 Absolute Monocytes 0.1 K/uL (0.1-1.3) 03/08/21 00:20 Eosinophils 1 % (0-3) 03/08/21 00:20 Absolute Eosinophils 0.1 K/uL (0-0.5) 03/08/21 00:20 Absolute Basophils 0.1 K/uL (0-0.5) 03/08/21 00:20 Reactive Lymphocytes 54 % 03/08/21 00:20 Platelet Estimate Decr 03/08/21 00:20 Morphology Comment Not seen (NOT SEEN) 03/08/21 00:20 PT 13.3 SECONDS (9.5-12.5) H 03/08/21 00:20 INR 1.15 03/08/21 00:20 APTT 23.2 SECONDS (24.3-36.9) L 03/08/21 00:20 Sodium 141 mmol/L (136-145) 03/08/21 00:20 Potassium 4.0 mmol/L (3.5-5.1) 03/08/21 00:20 Chloride 108 mmol/L (98-107) H 03/08/21 00:20 Carbon Dioxide 26 mmol/L (21-32) 03/08/21 00:20 BUN 21 mg/dL (7-18) H 03/08/21 00:20 Creatinine 1.03 mg/dL (0.55-1.3) 03/08/21 00:20 Estimated GFR 70 mL/min (=/>90) L 03/08/21 00:20 Glucose 122 mg/dL (74-106) H 03/08/21 00:20 Lactic Acid 2.0 mmol/L (0.4-2.0) 03/08/21 00:20 Calcium 8.6 mg/dL (8.5-10.1) 03/08/21 00:20 Total Bilirubin 0.6 mg/dL (0.2-1.0) 03/08/21 00:20 Direct Bilirubin 0.2 mg/dL (0-0.2) 03/08/21 00:20 AST 21 U/L (15-37) 03/08/21 00:20 ALT 22 U/L (12-78) 03/08/21 00:20 Alkaline Phosphatase 69 U/L (45-117) 03/08/21 00:20 Creatine Kinase 64 U/L (39-308) 03/08/21 00:20 CK-MB (CK-2) 1.1 ng/mL (1.0-3.6) 03/08/21 00:20 Rapid Troponin I 0.04 ng/mL (0.0-0.045) 03/08/21 00:20 NT-Pro-B Natriuret Pep Cancelled 03/08/21 03:41 Serum Total Protein 6.8 g/dL (6.4-8.2) 03/08/21 00:20 Albumin 3.3 g/dL (3.4-5.0) L 03/08/21 00:20 Globulin 3.5 g/dL (2.3-3.5) 03/08/21 00:20 Albumin/Globulin Ratio 0.9 (1.1-1.8) L 03/08/21 00:20 Amylase 45 U/L (25-115) 03/08/21 00:20 Lipase 63 U/L (73-393) L 03/08/21 00:20 Procalcitonin 0.09 ng/mL (<0.050) H 03/08/21 00:20 Urine pH 5.0 (5.0-7.0) 03/08/21 04:19 Ur Specific [place] 1.010 (1.005-1.030) 03/08/21 04:19 Glucose (UA)(Auto) Negative (Negative) 03/08/21 04:19 Urine Ketones Negative (Negative) 03/08/21 04:19 Urine Blood Trace-lysed (Negative) H 03/08/21 04:19 Urine Nitrite Negative (Negative) 03/08/21 04:19 Ur Leukocyte Esterase Negative (Negative) 03/08/21 04:19 Urine RBC <5 /HPF (NONE SEEN) 03/08/21 04:15 Urine WBC <5 /HPF (<5) 03/08/21 04:15 Ur Squamous Epith Cells <5 /HPF (NONE SEEN) 03/08/21 04:15 Urine Bacteria <20 /HPF (NONE SEEN) 03/08/21 04:15 Urine Culture Reflexed Not needed 03/08/21 04:15 Urine Total Protein Negative (Negative) 03/08/21 04:19 SARS-CoV-2 RNA (RT-PCR) Negative (NEGATIVE) 03/08/21 00:22 Assessment And Plan - Plan Physical Exam: General: Alert, In no apparent distress, Oriented x3 HEENT: Atraumatic, Normocephalic Neck: Supple, 2+ carotid pulse no bruit Respiratory: Clear to auscultation bilaterally, Normal air movement Cardiovascular: No edema, Normal pulses, Regular rate/rhythm, Normal S1 S2 Capillary refill: <2 Seconds Gastrointestinal: Normal bowel sounds, Non-distended Integumentary: Other (left lower extremity erythema, with several ulcerations. Patient underwent surgical debridement. Draining serosanguineous fluid. . Conclusions/Impression: Assessment: -sepsis with bacteremia -left lower extremity cellulitis with blister formation -history of atrial fibrillation -anemia Plan: -source of sepsis: Likely left lower extremity cellulitis. Blood cultures obtained on 03/08: 12/04 grew Vibrio cholerae, sent out to confirm. Repeat blood cultures taken on 03/10 negative. Antibiotics have been adjusted during duration of hospital stay, patient has been on combination of vancomycin, Rocephin, and doxycycline. Current antibiotic therapy includes vancomycin meropenem. Doxycycline added on the 03/15. Patient will need IV antibiotics for 2 weeks following a negative blood culture report. Negative blood culture report on 03/10. Vancomycin trough goal of 10-15, a order trough level after 4th dose. Continue to monitor renal function. -left lower extremity wound care: Apply Medihoney, and wrapped with Kerlix. Daily. -medical management per primary team Continue monitor CBC and BMP Continue monitor signs infection Plan of care discussed with Dr. lei Thank you for consultation.
[2021-03-15] MEDS: MEDIHONEY 44 ML TOPICAL TUBE TOP SCH (12:15)
[2021-03-15] MEDS: DOXYCYCLINE 100 MG in NA CHLORIDE 0.9% 100 ML IVPB SCH ×2 (12:40→20:58)
[2021-03-15] MEDS: VANCOMYCIN 1.5 GM in NA CHLORIDE 0.9% 500 ML IVPB SCH (17:22)
[2021-03-15] MEDS: TEMAZEPAM 15 MG CAP PO PRN (20:54)
--- NOTE | 2021-03-15 21:52 | PN ---
The patient basically is status quo discussion of his disposition with Infectious Disease. He felt t hat he would require IV antibiotics, and therefore, an LTAC would be appropriate. I agree with his a ssessment and a consult will be put in. Vital signs are stable. His appetite is good. He has been mobilizing 1 episode of bleeding from the wound. When this happened, on other occasions, he mobilize d without an issue. Presumably, he requires IV antibiotics for at least next few weeks, has his mult iple comorbidities. He was also seen by Oncology. HR/MODL Voice ID: [id number] Report ID: [id number]
[2021-03-16] MEDS: Meropenem 500 MG/100 ML BAG IV SCH ×3 (00:39→18:18)
[2021-03-16 04:11] LABS: Absolute Lymphocytes (CBC) 7.7 K/uL (0.7-4.9); Basophils % 0.3 % (0-1.3); Hematocrit 28.6 % (39.6-49.0); MPV 8.7 fL (7.6-11.3); RBC Red Blood Cell Count 3.04 M/uL (4.33-5.43)
[2021-03-16 04:13] LABS: Lymphocytes % 78.9 % (15.3-44.8)
[2021-03-16 04:52] LABS: ALT/SGPT 20 U/L (12-78); AST/SGOT 19 U/L (15-37); Albumin 1.9 g/dL (3.4-5.0); Alkaline Phosphatase 69 U/L (45-117); BUN Blood Urea Nitrogen 13 mg/dL (7-18); Bicarbonate 29 mmol/L (21-32); Bilirubin Total 0.6 mg/dL (0.2-1.0); Glucose Level 94 mg/dL (74-106); Potassium 3.7 mmol/L (3.5-5.1); Protein, Total 5.2 g/dL (6.4-8.2); Sodium Level 143 mmol/L (136-145)
[2021-03-16] MEDS: METOPROLOL XL 25 MG TAB PO SCH (05:33)
[2021-03-16] MEDS ORDERED: POTASSIUM CL SA 10 MEQ TAB PO ONE (06:19)
[2021-03-16] MEDS: SILVER SULFADIAZINE 1% 50 GM TOP SCH (09:00)
--- NOTE | 2021-03-16 09:34 | P.PN ---
Subjective Date of Service: 03/16/21 Patient seen examined at bedside, states he is doing well. Rates pain at 4/10. Afebrile, no leukocytosis. Review of Systems 10-point ROS is otherwise unremarkable Physical Examination - Vital Signs Temperature: 97.5 F Blood Pressure: 117/60 Pulse: 69 Respirations: 19 Pulse Ox (%): 93 - Studies Laboratory Last Values WBC 11.20 K/uL (4.3-10.9) H 03/08/21 00:20 RBC 3.91 M/uL (4.33-5.43) L 03/08/21 00:20 Hgb 12.0 g/dL (13.6-17.9) L 03/08/21 00:20 Hct 36.9 % (39.6-49.0) L 03/08/21 00:20 MCV 94.5 fL (80-100) 03/08/21 00:20 MCH 30.7 pg (27.0-35.0) 03/08/21 00:20 MCHC 32.4 g/dL (32.0-36.0) 03/08/21 00:20 RDW 15.9 % (12.1-15.2) H 03/08/21 00:20 Plt Count 84 K/uL (152-406) L 03/08/21 00:20 MPV 9.1 fL (7.6-11.3) 03/08/21 00:20 Neutrophils % 27.8 % (41.7-73.7) L 03/08/21 00:20 Lymphocytes % 70.4 % (15.3-44.8) H 03/08/21 00:20 Monocytes % 0.5 % (3.3-12.3) L 03/08/21 00:20 Eosinophils % 0.5 % (0-4.4) 03/08/21 00:20 Basophils % 0.8 % (0-1.3) 03/08/21 00:20 Absolute Neutrophils 3.1 K/uL (1.8-8.0) 03/08/21 00:20 Segmented Neutrophils 25 % (40-80) L 03/08/21 00:20 Band Neutrophils 2 % (0-1) H 03/08/21 00:20 Absolute Lymphocytes 7.9 K/uL (0.7-4.9) H 03/08/21 00:20 Lymphocytes 18 % (15-42) 03/08/21 00:20 Monocytes 0 % (0-10) 03/08/21 00:20 Absolute Monocytes 0.1 K/uL (0.1-1.3) 03/08/21 00:20 Eosinophils 1 % (0-3) 03/08/21 00:20 Absolute Eosinophils 0.1 K/uL (0-0.5) 03/08/21 00:20 Absolute Basophils 0.1 K/uL (0-0.5) 03/08/21 00:20 Reactive Lymphocytes 54 % 03/08/21 00:20 Platelet Estimate Decr 03/08/21 00:20 Morphology Comment Not seen (NOT SEEN) 03/08/21 00:20 PT 13.3 SECONDS (9.5-12.5) H 03/08/21 00:20 INR 1.15 03/08/21 00:20 APTT 23.2 SECONDS (24.3-36.9) L 03/08/21 00:20 Sodium 141 mmol/L (136-145) 03/08/21 00:20 Potassium 4.0 mmol/L (3.5-5.1) 03/08/21 00:20 Chloride 108 mmol/L (98-107) H 03/08/21 00:20 Carbon Dioxide 26 mmol/L (21-32) 03/08/21 00:20 BUN 21 mg/dL (7-18) H 03/08/21 00:20 Creatinine 1.03 mg/dL (0.55-1.3) 03/08/21 00:20 Estimated GFR 70 mL/min (=/>90) L 03/08/21 00:20 Glucose 122 mg/dL (74-106) H 03/08/21 00:20 Lactic Acid 2.0 mmol/L (0.4-2.0) 03/08/21 00:20 Calcium 8.6 mg/dL (8.5-10.1) 03/08/21 00:20 Total Bilirubin 0.6 mg/dL (0.2-1.0) 03/08/21 00:20 Direct Bilirubin 0.2 mg/dL (0-0.2) 03/08/21 00:20 AST 21 U/L (15-37) 03/08/21 00:20 ALT 22 U/L (12-78) 03/08/21 00:20 Alkaline Phosphatase 69 U/L (45-117) 03/08/21 00:20 Creatine Kinase 64 U/L (39-308) 03/08/21 00:20 CK-MB (CK-2) 1.1 ng/mL (1.0-3.6) 03/08/21 00:20 Rapid Troponin I 0.04 ng/mL (0.0-0.045) 03/08/21 00:20 NT-Pro-B Natriuret Pep Cancelled 03/08/21 03:41 Serum Total Protein 6.8 g/dL (6.4-8.2) 03/08/21 00:20 Albumin 3.3 g/dL (3.4-5.0) L 03/08/21 00:20 Globulin 3.5 g/dL (2.3-3.5) 03/08/21 00:20 Albumin/Globulin Ratio 0.9 (1.1-1.8) L 03/08/21 00:20 Amylase 45 U/L (25-115) 03/08/21 00:20 Lipase 63 U/L (73-393) L 03/08/21 00:20 Procalcitonin 0.09 ng/mL (<0.050) H 03/08/21 00:20 Urine pH 5.0 (5.0-7.0) 03/08/21 04:19 Ur Specific [place] 1.010 (1.005-1.030) 03/08/21 04:19 Glucose (UA)(Auto) Negative (Negative) 03/08/21 04:19 Urine Ketones Negative (Negative) 03/08/21 04:19 Urine Blood Trace-lysed (Negative) H 03/08/21 04:19 Urine Nitrite Negative (Negative) 03/08/21 04:19 Ur Leukocyte Esterase Negative (Negative) 03/08/21 04:19 Urine RBC <5 /HPF (NONE SEEN) 03/08/21 04:15 Urine WBC <5 /HPF (<5) 03/08/21 04:15 Ur Squamous Epith Cells <5 /HPF (NONE SEEN) 03/08/21 04:15 Urine Bacteria <20 /HPF (NONE SEEN) 03/08/21 04:15 Urine Culture Reflexed Not needed 03/08/21 04:15 Urine Total Protein Negative (Negative) 03/08/21 04:19 SARS-CoV-2 RNA (RT-PCR) Negative (NEGATIVE) 03/08/21 00:22 Assessment And Plan - Plan Physical Exam: General: Alert, In no apparent distress, Oriented x3 HEENT: Atraumatic, Normocephalic Neck: Supple, 2+ carotid pulse no bruit Respiratory: Clear to auscultation bilaterally, Normal air movement Cardiovascular: No edema, Normal pulses, Regular rate/rhythm, Normal S1 S2 Capillary refill: <2 Seconds Gastrointestinal: Normal bowel sounds, Non-distended Integumentary: Other (left lower extremity erythema, with several ulcerations. Patient underwent surgical debridement. Draining serosanguineous fluid. . Conclusions/Impression: Assessment: -sepsis with bacteremia -left lower extremity cellulitis with blister formation -history of atrial fibrillation -anemia Plan: -source of sepsis: Likely left lower extremity cellulitis. Blood cultures obtained on 03/08: 12/04 grew Vibrio cholerae, sent out to confirm. Repeat blood cultures taken on 03/10 negative. Antibiotics have been adjusted during duration of hospital stay, patient has been on combination of vancomycin, Rocephin, and doxycycline. Current antibiotic therapy includes vancomycin meropenem. Doxycycline added on the 03/15. Patient will need IV antibiotics for 2 weeks following a negative blood culture report. Negative blood culture report on 03/10. Tentative antibiotic stop date of 03/24 based on patient's clinical condition. Vancomycin trough goal of 10-15. Most recent trough obtained was 10.1. Continue to monitor renal function. -left lower extremity wound care: Apply Medihoney, and wrapped with Kerlix. Daily. -initiated transfer to [facility] for long-term IV antibiotics as well as hyperbaric oxygen treatment to help heal the patient's wound. -medical management per primary team Continue monitor CBC and BMP Continue monitor signs infection Plan of care discussed with Dr. lei Thank you for consultation.
[2021-03-16] MEDS: AMIODARONE HCL 200 MG TAB PO SCH (10:21)
[2021-03-16] MEDS: ENOXAPARIN 40 MG/0.4 ML SQ SCH (10:21)
[2021-03-16] MEDS: MEDIHONEY 44 ML TOPICAL TUBE TOP SCH (10:22)
[2021-03-16] MEDS: VANCOMYCIN 1.5 GM in NA CHLORIDE 0.9% 500 ML IVPB SCH (11:22)
[2021-03-16 12:56] VITALS: O2SAT 93
[2021-03-16] MEDS: MORPHINE 2 MG/ML SYR IV PRN (13:18)
[2021-03-16] MEDS: DOXYCYCLINE 100 MG in NA CHLORIDE 0.9% 100 ML IVPB SCH (13:47)
[2021-03-16] MEDS ORDERED: SOD FERRIC GLUC COMPLX/SUCROSE 250 MG in NA CHLORIDE 0.9% 250 ML IV SCH (14:00)
[2021-03-16 16:05] VITALS: BP 126/58; TEMP 97.5
--- NOTE | 2021-03-16 17:00 | PN ---
Date of Progress Note: 03/16/2021 The patient states he feels okay. He had 1 episode of bleeding from the wound when he was up. He saxena s not had any therapy as of yet today. Awaiting disposition to the unit for continued IV antibiotics , PT and possible HBO. has improved somewhat as far as his cellulitis is concerned. Cont inue with the above regimen until disposition is made. HR/MODL Voice ID: [id number] Report ID: [id number]
== END 2021-03-16 19:15 | DRG 854 ==
LOC: ER 00:13 → 4TH 06:15 → 2ND 03-09 16:06
PROVIDERS: ADMIT Family Medicine; ATTEND Family Medicine
PROC: 0JBN0ZZ Excision of Right Lower Leg Subcutaneous Tissue and Fascia, Open Approach (ICD-10-PCS; principal; 2021-03-13 10:30)
DX: A41.9 Sepsis, unspecified organism (principal); L03.115 Cellulitis of right lower limb; I82.612 Acute embolism and thrombosis of superficial veins of left upper extremity; E44.1 Mild protein-calorie malnutrition; I96 Gangrene, not elsewhere classified; I10 Essential (primary) hypertension; I77.6 Arteritis, unspecified; D64.9 Anemia, unspecified; D69.6 Thrombocytopenia, unspecified; I48.0 Paroxysmal atrial fibrillation; R09.02 Hypoxemia; Z79.899 Other long term (current) drug therapy; Z68.26 Body mass index [BMI] 26.0-26.9, adult; Z85.46 Personal history of malignant neoplasm of prostate; Z87.891 Personal history of nicotine dependence; Z96.653 Presence of artificial knee joint, bilateral; Z95.0 Presence of cardiac pacemaker; Z20.822 Contact with and (suspected) exposure to COVID-19
CPT/HCPCS: 36415; 71045; 71046; 71275; 74177; 80048; 80053; 80076; 80202; 81003; 81015; 82150; 82274; 82550; 82553; 82607; 82728; 82746; 82947; 83540; 83605; 83615; 83690; 83880; 84132; 84145; 84466; 84484; 85025; 85044; 85610; 85652; 85730; 86140; 87040; 87070; 87075; 87077; 87186; 87205; 87804; 88304; 93005; 93306; 93971; 94640; 94760; 96365; 96366; 96367; 97116; 97161; 97530; 99285; J0456; J0696; J1650; J2185; J2270; J2704; J2916; J3010; J3370; J3590; J7030; J7040; J7050; J7120; J7799; Q9967; U0003

== ENCOUNTER 2022-08-01 12:41 | Inpatient (IN) | payer OTHER, MEDICARE ==
--- OUTSIDE RECORDS SUMMARY | 2022-08-01 12:44 | XMS REPORT | Continuity of Care Document ---
:1940 Author Organization [facility] t Address [address] [place] [address] Care Team Providers Name Role Phone Do PACHECO, Andre Primary Care Physician Dajuan PACHECO PhD, Sam Napoles Attending Clinician Janel Lara [employer], Debbie Piña Attending Clinician [phone] ILSA MARTINEZ Attending Clinician Unavailable GM HOLGUIN Attending Clinician Unavailable RJ TORRES Attending Clinician Unavailable SAM GRAFF Admitting Clinician Unavailable Payers Payer Name Policy Type Policy Number Effective Date Expiration Date S ource Problems Condition Condition Condition Status Onset Resolution Last Treating Co mments Source Name Details Category Date Date Treatment Clinician Date Shingles Shingles Disease Active [facility] di [facility]-31 [facility] 00[facility]: Hospita 00 l CAD in CAD in Disease Active [facility] [place] 03-22 st artery artery 00:00: Hospita 00 l PAD PAD Disease Active [facility] (periphera (periphera 7- st l artery l artery 00:00: Hospit a disease) disease) 00 l Cardiomyop Cardiomyop Disease Active M [facility]i athy athy 09-22 st 00:00: Hospita 00 l Abnormal Abnormal Disease Active [facility] di stress stress 8-20 st test test 00:00: Hospita 00 l Angina Angina Disease Active [facility] pectoris pectoris 04-21 st 00:00: Hospita 00 l Chest pain Chest pain Disease Active M [facility]i 8-20 st 00:00: Hospita 00 l 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 SVT events lasting for 8 - 28 seconds durationC ontinue to monitorFo r now, continue Metoprolo l dose SOB SOB Disease Active [facility] (shortness (shortness 9-28 st of breath) of breath) 00:00: Ho spita 00 l Essential Essential Disease Active Overview: [facility] hypertensi hypertensi 9-[address] on on 00:00: g of this Hospita 00 note l might be different from the original. 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 S/p dual chamber perm pacemaker implant by Dr. Graff (04/15/17) Paroxysmal Paroxysmal Disease Active M ethodi atrial atrial 4-25 st fibrillati fibrillati 00:00: Ho spita on on 00 l Carotid Carotid Disease Active [facility] bruit bruit 12-25 st 00:00: Hospita 00 l Dizzy Dizzy Disease Active [facility] 12-25 st 00:00: Hospita 00 l Allergies, Adverse Reactions, Alerts This patient has no known allergies or adverse reactions. Family History Family Member Diagnosis Comments Start Date Stop Date Source Natural brother Prostate cancer [facility] Natural brother Lung cancer [facility] Natural father Heart attack [facility] Natural mother Osteoporosis [facility] Social History Social Habit Start Date Stop Date Quantity Comments Source History of Current smoker [facility] Hospital Alcohol intake 2020-10-28 2020-10-28 Current drinker [facility] dist 00:00:00 00:00:00 of alcohol [facility] (finding) Alcohol Comment 2020-10-27 2020-10-27 social [facility] 00:00:00 00:00:00 Hospital Tobacco use and 2017-08-22 2017-08-22 Former smokeless [facility] exposure 00:00:00 00:00:00 tobacco user [facility] Sex Ass[birth year] At [birth year] [facility] 00:00:00 00:00:00 Hospital Smoking Status Start Date Stop Date Source Ex-smoker 2017-08-22 00:00:00 2017-08-22 00:00:00 [facility] Medications Ordered Filled Start Stop Current Ordering Indication Dosage Frequency Signature Comments Components Source Medication Medication Date Date Medication? Clinician (SIG) Name Name amIODarone 2021-09 Yes TAKE ONE Met hodi (PACERONE) 0-28 (1) st 200 MG 00:00: TABLET(S) Hospit a tablet 00 BY MOUTH l ONCE A DAY. amIODarone 2021-09 TAKE ONE Me [facility]odi (PACERONE) 0-21 10-28 (1) st 200 MG 00:00: 00:00 TABLET(S) Hospi ta tablet 00 :00 BY MOUTH l ONCE A DAY. cholecalcif Yes 400U QD Take 400 Me [facility] james, 9-[address] vitamin D3, 09:03: mouth Hospi ta (VITAMIN 15 daily. l D3) 400 unit tablet metoprolol Yes TAKE ONE Met hodi succinate 8-17 (1) st XL 00:00: TABLET(S) Hospita (TOPROL-XL) 00 BY MOUTH l 25 mg 24 hr ONCE A tablet DAY. amIODarone 2021- No TAKE ONE [facility] (PACERONE) 6- 10-21 (1) st 200 MG 00:00: 00:00 TABLET(S) Hospi ta tablet 00 :00 BY MOUTH l ONCE A DAY. amIODarone 2021- No TAKE ONE [facility] (PACERONE) 24 06-21 (1) st 200 MG 00:00: 00:00 TABLET(S) Hospi ta tablet 00 :00 BY MOUTH l ONCE A DAY. metoprolol 2021- No TAKE ONE M ethodi succinate 02-22 08-17 (1) st XL 00:00: 00:00 TABLET(S) Hospita (TOPROL-XL) 00 :00 BY MOUTH l 25 mg 24 hr DAILY. tablet amIODarone 2021- No TAKE ONE M ethodi (PACERONE) 01-30 02-24 (1) st 200 MG 00:00: 00:00 TABLET(S) Hospi ta tablet 00 :00 BY MOUTH l ONCE A DAY. Vital Signs Vital Name Observation Time Observation Value Comments Source Systolic blood 2022-05-31 14:01:00 131 mm[Hg] [facility] pressure Diastolic blood 2022-05-31 14:01:00 81 mm[Hg] [facility] pressure Heart rate 2022-05-31 14:01:00 70 /min [facility] Body height 2022-05-31 14:01:00 177.8 cm [facility] Body weight 2022-05-31 14:01:00 78.019 kg [facility] BMI 2022-05-31 14:01:00 24.68 kg/m2 [facility] Procedures Procedure Date / Time Performing Clinician Source Performed ECG 12-LEAD 2022-05-31 14:08:03 Debbie Harley [facility] F. CV PACEMAKER DEFIB ILR 2022-05-31 00:00:00 Sam Graff [facility] INTERROGATION Plan of Care Planned Activity Planned Date Details Comments Source Future Scheduled 2022-07-28 HEPATITIS B VACCINES [facility] Test 14:02:39 (1 of 3 - 3-dose series) [code = HEPATITIS B VACCINES (1 of 3 - 3-dose series)] Future Scheduled 2022-07-28 COVID-19 VACCINE (#1) [facility] Test 14:02:39 [code = COVID-19 VACCINE (#1)] Future Scheduled 2022-07-28 65+ [facility] 14:02:39 VACCINE (1 - PCV) [code = 65+ PNEUMOCOCCAL VACCINE (1 - PCV)] Future Scheduled 2022-07-28 SHINGLES VACCINES (1 Met [facility] Test 14:02:39 of 2) [code = SHINGLES VACCINES (1 of 2)] Future Scheduled 2022-07-28 INFLUENZA VACCINE [facility] Test 14:02:39 [code = INFLUENZA VACCINE] Encounters Start End Encounter Admission Attending Care Care Encounter Source Date/Time Date/Time Type Type Clinicians Facility Department ID 2022-06-28 2022-06-28 RefSam Fitzpatrick 1.2.840.1 [id number] [facility] 00:00:00 00:00:[address] 3.430.2.7 Hospit a .3.102066 l .8 2022-06-28 2022-06-28 RefSam Fitzpatrick 1.2.840.1 [id number] [facility] 00:00:00 00:00:[address] 3.430.2.7 Hospit a .3.772660 l .8 2022-06-22 2022-06-22 RefSam Fitzpatrick 1.2.840.1 [id number] Method[facility] 00:00:00 00:00:[address] 3.430.2.7 Hospit a .3.061522 l .8 2022-06-22 2022-06-22 RefAda Fitzpatricksh 1.2.840.1 [id number] 21 [id number] [facility] 00:00:00 00:00:[address] 3.430.2.7 Hospit a .3.005954 l .8 2022-05-31 2022-05-31 Office Delos 1.2.840.1 [id number] [facility] 09:00:00 09:24:01 Visit Marco, [address]85.1.[address] Debbie F. 3.430.2.7 Hosp mata .3.850893 l .8 2022-05-31 2022-05-31 Office Delos 1.2.840.1 [id number] [facility] 09:00:00 09:24:01 Visit Marco, [address]24.1.[address] Debbie F. 3.430.2.7 Hosp mata .3.222885 l .8 2022-05-31 2022-05-31 Travel 1.2.840.1 1.2.897.811 [id number] Method[facility] 00:00:00 00:00:[address] 3.430.2.7 0.2.7.3.698 Ho spita .3.072563 084.8 l .8 2022-05-31 2022-05-31 Travel 1.2.840.1 1.2.000.820 [id number] Method[facility] 00:00:00 00:00:[address] 3.430.2.7 0.2.7.3.698 Ho spita .3.177132 084.8 l .8 2022-04-17 2022-04-17 RefSam Fitzpatrick 1.2.840.1 [id number] Method[facility] 00:00:00 00:00:[address] 3.430.2.7 Hospit a .3.762217 l .8 2022-04-17 2022-04-17 Refumm Graff [facility] 1.2.840.1 [id number] Method[facility] 00:00:00 00:00:[address] 3.430.2.7 Hospit a .3.796560 l .8 2022-02-20 2022-02-20 Refill Dajuan, Pentecostal 1.2.840.1 [id number] Methodi 00:00:00 00:00:[address] 3.430.2.7 Hospit a .3.309506 l .8 2022-02-20 2022-02-20 Refill Dajuan, Pentecostal 1.2.840.1 [id number] Method[facility] 00:00:00 00:00:[address] 3.430.2.7 Hospit a .3.346672 l .8 2021-10-25 2021-10-25 Refill Dajuan, Pentecostal 1.2.840.1 [id number] Method[facility] 00:00:00 00:00:[address] 3.430.2.7 Hospit a .3.127277 l .8 2021-10-25 2021-10-25 Refill Dajuan, Pentecostal 1.2.840.1 [id number] Method[facility] 00:00:00 00:00:[address] 3.430.2.7 Hospit a .3.949817 l .8 2021-01-20 2021-01-20 Outpatient MICHELLE, [facility] [id number] [place] 00:00:00 00:00:00 ILSA [address] 2021-01-20 2021-01-20 Outpatient MICHELLE, [facility] [id number] [place] 00:00:00 00:00:00 ILSA [address] 2020-11-16 2020-11-16 Outpatient PINSHYAMI, [facility] [id number] [place] 00:00:00 00:00:00 GM [address] 2020-11-16 2020-11-16 Outpatient PINGALI, [facility] [id number] [place] 00:00:00 00:00:00 GM [address] 2020-10-27 2020-10-27 Outpatient DAJUAN, [facility] [id number] [place] 00:00:00 00:00:[address] 2020-09-13 2020-09-13 Outpatient SAM GRAFF [facility] [id number] [place] 00:00:00 00:00:[address] 2020-04-12 2020-04-12 Outpatient BRIAN, [facility] [id number] [place] 00:00:00 00:00:00 RJ [address] 2020-03-22 2020-03-22 Outpatient BRIAN, [facility] [id number] [place] 00:00:00 00:00:00 RJ [address] 2020-03-14 2020-03-14 Outpatient BRIAN, [facility] [id number] [place] 00:00:00 00:00:00 RJ [address] 2019-05-05 2019-05-05 Outpatient SAM GRAFF [facility] [id number] [place] 00:00:00 00:00:[address] Results Test Description Test Time Test Comments Results Result Comments Source ECG 12 lead 2022-05-31 22:32:49 Test Item Value Reference Range Interpretation Comme nts Ventricular rate (test code = 253) Atrial rate (test code = 255) QRSD interval (test code = 260) QT interval (test code = 264) QTC interval (test code = 265) QRS axis 1 (test code = 268) T wave axis (test code = 270) EKG impression (test code = 273) AV dual-paced rhythm-Abnormal ECG- In automated comparison with ECG of 27-OCT-2020 09:48,-No significant change was found- [facility] [id number] 22:32:49 Test Item Value Reference Range Interpretation Comments Ventricular rate (test code = 253) Atrial rate (test code = 255) QRSD interval (test code = 260) QT interval (test code = 264) QTC interval (test code = 265) QRS axis 1 (test code = 268) T wave axis (test code = 270) EKG impression (test AV dual-paced code = 273) rhythm-Abnormal ECG-In automated comparison with ECG of 27-OCT-2020 09:48,-No significant change was found- [facility]
[2022-08-01 14:16] LABS: SARS-COV-2 RT PCR NEGATIVE (NEGATIVE)
[2022-08-01] MEDS ORDERED: HYDROCODONE/CHLORPHEN 5 ML/OSYR ONE (14:34)
--- NOTE | 2022-08-01 14:57 | EDPHYS ---
Physician Documentation [facility] Name: Mo Millard Age: 81 yrs Sex: Male : 1940 Arrival Date: 08/01/2022 Time: 12:44 Bed 26 Private MD: Andre Lei ED Physician Jered Bloom HPI: 08/01 14:57 This 81 yrs old Male presents to ER via Ambulatory with complaints of Fever, Cough. snw 14:57 The patient reports fever, that was measured at 103.7 degrees Fahrenheit. Onset: The snw symptoms/episode began/occurred suddenly, and became persistent. Associated signs and symptoms: Pertinent positives: chills, cough. Severity of symptoms: At their worst the symptoms were moderate severe in the emergency department the symptoms are unchanged. The patient has not experienced similar symptoms in the past. It is unknown whether or not the patient has recently seen a physician. Historical: - Allergies: 13:16 No Known Allergies; ll1 - PMHx: 13:16 back CA; Hypertensive disorder; ll1 - PSHx: 13:16 pacemaker; ll1 - Immunization history:: Client reports having NOT received the Covid vaccine. - Social history:: Smoking status: Patient denies any tobacco usage or history of. ROS: 14:51 Eyes: Negative for injury, pain, redness, and discharge, ENT: Negative for injury, snw pain, and discharge, Neck: Negative for injury, pain, and swelling, Cardiovascular: Negative for chest pain, palpitations, and edema, Respiratory: Negative for shortness of breath, cough, wheezing, and pleuritic chest pain, Abdomen/GI: Negative for abdominal pain, nausea, vomiting, diarrhea, and constipation. 14:51 Constitutional: Positive for body aches, fever, malaise. Exam: 14:50 Head/Face: Normocephalic, atraumatic. Eyes: Pupils equal round and reactive to light, snw extra-ocular motions intact. Lids and lashes normal. Conjunctiva and sclera are non-icteric and not injected. Cornea within normal limits. Periorbital areas with no swelling, redness, or edema. ENT: Nares patent. No nasal discharge, no septal abnormalities noted. Tympanic membranes are normal and external auditory canals are clear. Oropharynx with no redness, swelling, or masses, exudates, or evidence of obstruction, uvula midline. Mucous membranes moist. Neck: Trachea midline, no thyromegaly or masses palpated, and no cervical lymphadenopathy. Supple, full range of motion without nuchal rigidity, or vertebral point tenderness. No Meningismus. Chest/axilla: Normal chest wall appearance and motion. Nontender with no deformity. No lesions are appreciated. 14:50 Abdomen/GI: Soft, non-tender, with normal bowel sounds. No distension or tympany. No guarding or rebound. No evidence of tenderness throughout. Back: No spinal tenderness. No costovertebral tenderness. Full range of motion. 14:50 Constitutional: The patient appears alert, anxious, listless, uncomfortable. 14:50 Cardiovascular: Rate: normal, Rhythm: regular, Pulses: no pulse deficits are appreciated. 14:50 Respiratory: the patient does not display signs of respiratory distress, Respirations: shallow respirations, tachypnea, Breath sounds: bronchial sounds, that are moderate, are heard diffusely. 14:50 Skin: injury, contusion(s), that are superficial, of the left arm. 14:50 Neuro: Orientation: is normal, Mentation: is normal, Motor: generalized weakness, unsteady, chills. Vital Signs: 13:17 BP 127 / 72; Pulse 81; Resp 17; Temp 99.0(O); Pulse Ox 100% on R/A; Weight 80.29 kg; ll1 Height 5 ft. 8 in. (172.72 cm); Pain 5/10; 15:11 BP 143 / 87; Pulse 80; Resp 16; Temp 97.71(O); Pulse Ox 98% on R/A; tp1 16:00 BP 115 / 63; Pulse 78; Resp 20; Pulse Ox 95% on R/A; eh3 17:00 BP 102 / 61; Pulse 72; Resp 18; Pulse Ox 95% on R/A; eh3 18:00 BP 106 / 64; Pulse 70; Resp 18; Pulse Ox 95% on R/A; eh3 19:00 BP 106 / 65; Pulse 72; Resp 18; Pulse Ox 95% on R/A; eh3 20:00 BP 106 / 63; Pulse 71; Resp 19; Pulse Ox 96% on R/A; eh3 21:00 BP 114 / 69; Pulse 70; Resp 18; Pulse Ox 95% on R/A; eh3 13:17 Body Mass Index 26.91 (80.29 kg, 172.72 cm) ll1 MDM: 14:02 Patient medically screened. snw 14:49 Data reviewed: vital signs, nurses notes. Data interpreted: Pulse oximetry: on room air snw is 100 %. Interpretation: normal. Counseling: I had a detailed discussion with the patient and/or guardian regarding: the historical points, exam findings, and any diagnostic results supporting the discharge/admit diagnosis, the need for further work-up and treatment in the hospital. Physician consultation: Andre Lei MD was called at 14:50, regarding admission, to the telemetry unit. 14:55 Physician consultation: was contacted at 14:55, and will see patient in inpatient room. snw 08/01 13:19 Order name: COVID-19/FLU A+B; Complete Time: 14:27 ll1 08/01 14:49 Order name: Blood Culture Adult (2) snw 08/01 14:49 Order name: CBC with Diff; Complete Time: 16:30 snw 08/01 14:49 Order name: CMP; Complete Time: 15:55 snw 08/01 14:49 Order name: Lactate w/ 2H reflex if indic.; Complete Time: 15:47 snw 08/01 14:49 Order name: Protime (+inr); Complete Time: 15:55 snw 08/01 14:49 Order name: Ptt, Activated; Complete Time: 15:55 snw 08/01 15:26 Order name: Glucose, Ancillary Testing; Complete Time: 15:26 EDMS 08/01 16:24 Order name: Manual Differential; Complete Time: 16:30 EDMS 08/01 21:38 Order name: Magnesium; Complete Time: 22:20 EDMS 08/01 21:38 Order name: NT PRO-BNP; Complete Time: 22:20 EDMS 08/01 21:38 Order name: Phosphorus; Complete Time: 22:20 EDMS 08/01 21:38 Order name: CBC with Automated Diff EDMS 08/01 21:38 Order name: CBC with Automated Diff EDMS 08/01 14:36 Order name: Chest Pa And Lat (2 Views) XRAY; Complete Time: 15:41 snw 08/01 14:49 Order name: EKG; Complete Time: 14:50 snw 08/01 21:38 Order name: Physical Therapy Consult EDOK 08/01 21:38 Order name: Heart Healthy EDOK 08/01 21:38 Order name: Comprehensive Metabolic Panel EDOK 08/01 21:38 Order name: Comprehensive Metabolic Panel EDOK 08/01 21:38 Order name: Lipid Profile EDOK 08/01 21:38 Order name: Lipid Profile EDOK 08/01 21:38 Order name: Protime (+INR) EDOK 08/01 21:38 Order name: Protime (+INR) EDOK 08/01 21:38 Order name: PTT, Activated Partial Thromb EDOK 08/01 21:38 Order name: PTT, Activated Partial Thromb EDOK 08/01 21:38 Order name: Urinalysis EDOK 08/01 14:49 Order name: Accucheck; Complete Time: 15:18 snw 08/01 14:49 Order name: Cardiac monitoring; Complete Time: 15:18 snw 08/01 14:49 Order name: EKG - Nurse/Tech; Complete Time: 15:54 snw 08/01 14:49 Order name: IV Saline Lock - Large Bore; Complete Time: 15:18 snw 08/01 14:49 Order name: Labs collected and sent; Complete Time: 15:18 snw 08/01 14:49 Order name: O2 Per Protocol; Complete Time: 15:09 snw 08/01 14:49 Order name: O2 Sat Monitoring; Complete Time: 15:09 snw 08/01 14:49 Order name: Vital Signs; Complete Time: 15:12 snw EC:46 Rate is 76 beats/min. Rhythm is irregularly irregular, Paced. QRS interval is snw prolonged. Clinical impression: paced rhythm. Administered Medications: 14:39 Drug: Tussionex Pennkinetic ER (chlorpheniramine-hydrocodone) Suspension 5 ml Route: PO;iw 17:14 Follow up: Response: No adverse reaction eh3 15:09 Drug: Motrin (ibuprofen) 600 mg Route: PO; tp1 17:14 Follow up: Response: No adverse reaction eh3 15:09 Drug: Tamiflu (oseltamivir) 75 mg Route: PO; tp1 17:14 Follow up: Response: No adverse reaction eh3 Disposition Summary: 08/01/22 14:57 Hospitalization Ordered Hospitalization Status: Inpatient Admission snw Provider: Andre Lei snw Location: Telemetry/MedSurg (Inpatient) snw Condition: Fair snw Problem: an acute exacerbation snw Symptoms: are unchanged snw Bed/Room Type: Standard snw Room Assignment: 202(08/01/22 22:17) cg Diagnosis - Influenza due to identified novel influenza A virus snw - DECONDITIONED snw - Thrombocytopenia, unspecified snw Forms: - Medication Reconciliation Form snw - SBAR form snw Addendum: 08/06/2022 04:22 Co-signature as Attending Physician, Jered Bloom MD I agree with the assessment and r t plan of care. Signatures: Dispatcher [employer] EDMarsha Russell, CHAN-C CHIN STRAP CUTTER-Csnw Do Ornelas RN TIFFANY iw Latisha Page RN RN cg Jaelyn Saucedo RN RN ll1 Thuy Arenas RN RN tp1 Jered Bloom MD MD Itzel Fountain RN 3 Corrections: (The following items were deleted from the chart) 08/01 22:17 14:57 snw cg
--- NOTE | 2022-08-01 14:57 | ER ---
Nurse's Notes [facility] [place] Name: oM Millard Age: 81 yrs Sex: Male : 1940 Arrival Date: 08/01/2022 Time: 12:44 Bed 26 Private MD: Andre Lei Diagnosis: Influenza due to identified novel influenza A virus;DECONDITIONED;Thrombocytopenia, unspecified Presentation: 08/01 13:17 Chief complaint: Patient states: Fever/cough started this morning. Fever 103.7 at home. ll1 + SCHROEDER, fair appetite. Coronavirus screen: Vaccine status: Patient reports being unvaccinated. Client denies travel out of the [place] in the last 14 days. cough unrelated to allergies, fatigue, fever, headache, Client presents with at least one sign or symptom that may indicate coronavirus-19. Standard/surgical mask placed on the client. Ebola Screen: Patient denies travel to an Ebola-affected area in the 21 days before illness onset. Initial Sepsis Screen: Does the patient meet any 2 criteria? No. Patient's initial sepsis screen is negative. Does the patient have a suspected source of infection? Yes: Productive cough/pneumonia. Risk Assessment: Do you want to hurt yourself or someone else? Patient reports no desire to harm self or others. Onset of symptoms was August 01, 2022. 13:17 Method Of Arrival: Ambulatory ll1 13:17 Acuity: PK 3 ll1 Historical: - Allergies: 13:16 No Known Allergies; ll1 - PMHx: 13:16 back CA; Hypertensive disorder; ll1 - PSHx: 13:16 pacemaker; ll1 - Immunization history:: Client reports having NOT received the Covid vaccine. - Social history:: Smoking status: Patient denies any tobacco usage or history of. Screenin:55 Abuse screen: Denies threats or abuse. Denies injuries from another. Nutritional eh3 screening: No deficits noted. Tuberculosis screening: No symptoms or risk factors identified. Fall Risk None identified. Assessment: 15:15 General: Appears in no apparent distress. uncomfortable, Behavior is calm, cooperative, eh3 appropriate for age. Pain: Denies pain. Neuro: Level of Consciousness is awake, alert, obeys commands, Oriented to person, place, time, situation. Cardiovascular: Capillary refill < 3 seconds Patient's skin is warm and dry. Respiratory: Airway is patent Respiratory effort is even, unlabored, Respiratory pattern is regular, symmetrical. GI: No signs and/or symptoms were reported involving the gastrointestinal system. Abdomen is flat, non-distended. : No signs and/or symptoms were reported regarding the genitourinary system. EENT: Throat is reddened. Derm: No signs and/or symptoms reported regarding the dermatologic system. Musculoskeletal: No signs and/or symptoms reported regarding the musculoskeletal system. Circulation, motion, and sensation intact. Range of motion: intact in all extremities. 16:00 Reassessment: Patient and/or family updated on plan of care and expected duration. Pain eh3 level reassessed. Patient is alert, oriented x 3, equal unlabored respirations, skin warm/dry/pink. 17:00 Reassessment: Patient and/or family updated on plan of care and expected duration. Pain eh3 level reassessed. Patient is alert, oriented x 3, equal unlabored respirations, skin warm/dry/pink. 18:00 Reassessment: Patient and/or family updated on plan of care and expected duration. Pain eh3 level reassessed. Patient is alert, oriented x 3, equal unlabored respirations, skin warm/dry/pink. 18:51 Reassessment: CONTACT: Dale (son) [phone]. 3 19:00 Reassessment: Patient and/or family updated on plan of care and expected duration. Pain eh3 level reassessed. Patient is alert, oriented x 3, equal unlabored respirations, skin warm/dry/pink. 20:00 Reassessment: Patient and/or family updated on plan of care and expected duration. Pain eh3 level reassessed. Patient is alert, oriented x 3, equal unlabored respirations, skin warm/dry/pink. 21:00 Reassessment: Patient and/or family updated on plan of care and expected duration. Pain eh3 level reassessed. Patient is alert, oriented x 3, equal unlabored respirations, skin warm/dry/pink. Vital Signs: 13:17 BP 127 / 72; Pulse 81; Resp 17; Temp 99.0(O); Pulse Ox 100% on R/A; Weight 80.29 kg; ll1 Height 5 ft. 8 in. (172.72 cm); Pain 5/10; 15:11 BP 143 / 87; Pulse 80; Resp 16; Temp 97.71(O); Pulse Ox 98% on R/A; tp1 16:00 BP 115 / 63; Pulse 78; Resp 20; Pulse Ox 95% on R/A; eh3 17:00 BP 102 / 61; Pulse 72; Resp 18; Pulse Ox 95% on R/A; eh3 18:00 BP 106 / 64; Pulse 70; Resp 18; Pulse Ox 95% on R/A; eh3 19:00 BP 106 / 65; Pulse 72; Resp 18; Pulse Ox 95% on R/A; eh3 20:00 BP 106 / 63; Pulse 71; Resp 19; Pulse Ox 96% on R/A; eh3 21:00 BP 114 / 69; Pulse 70; Resp 18; Pulse Ox 95% on R/A; eh3 13:17 Body Mass Index 26.91 (80.29 kg, 172.72 cm) ll1 ED Course: 12:44 Patient arrived in ED. am2 12:44 Andre Lei MD is Private Physician. am2 13:16 Arm band placed on. ll1 13:18 Triage completed. ll1 13:21 COVID-19/FLU A+B Sent. iw 13:55 [facility]C [facility]. snw 13:55 Jered Bloom MD is Attending Physician. snw 14:09 Do Ornelas, TIFFANY is Primary Nurse. iw 14:55 Andre Lei MD is Hospitalizing Provider. snw 15:18 Inserted saline lock: 20 gauge in right antecubital area, using aseptic technique. eh3 Blood collected. 15:30 Chest Pa And Lat (2 Views) XRAY In Process Unspecified. EDMS 21:55 Patient has correct armband on for positive identification. Placed in gown. Bed in low eh3 position. Call light in reach. Side rails up X2. Adult w/ patient. 21:55 No provider procedures requiring assistance completed. eh3 21:55 Patient admitted, IV remains in place. eh3 Administered Medications: 14:39 Drug: Tussionex Pennkinetic ER (chlorpheniramine-hydrocodone) Suspension 5 ml Route: PO;iw 17:14 Follow up: Response: No adverse reaction eh3 15:09 Drug: Motrin (ibuprofen) 600 mg Route: PO; tp1 17:14 Follow up: Response: No adverse reaction eh3 15:09 Drug: Tamiflu (oseltamivir) 75 mg Route: PO; tp1 17:14 Follow up: Response: No adverse reaction eh3 Medication: 21:55 VIS not applicable for this client. eh3 Outcome: 14:57 Decision to Hospitalize by Provider. snw 21:55 Admitted to ER Hold. Please see [facility] for further documentation. 3 21:55 Condition: stable 21:55 Instructed on the need for admit. 22:57 Patient left the ED. 3 Signatures: Dispatcher [employer] EDMS Marsha Thorne, FERMENTING CELLARS SUPERVISOR-C FERMENTING CELLARS SUPERVISOR-Csnw Do Ornelas, RN Precious Brothers Lynsay RN TIFFANY ll1 Thuy Arenas RN RN tp1 Itzel Fountain RN RN eh3
[2022-08-01] MEDS ORDERED: IBUPROFEN 200 MG TAB PO ONE (15:06)
[2022-08-01] MEDS ORDERED: OSELTAMIVIR 75 MG CAP PO ONE (15:06)
[2022-08-01 15:33] LABS: Absolute Lymphocytes (CBC) 11.6 K/uL (0.7-4.9); Hematocrit 36.6 % (39.6-49.0); Lymphocytes % 75.5 % (15.3-44.8); MPV 8.8 fL (7.6-11.3); RBC Red Blood Cell Count 3.94 M/uL (4.33-5.43)
--- NOTE | 2022-08-01 15:34 | RAD REPORT ---
EXAM DESCRIPTION: RAD - Chest Pa And Lat (2 Views) - 08/01/2022 3:28 pm CLINICAL HISTORY: COUGH COMPARISON: Pa And Lat (2 Views) dated 03/09/2021; Chest Single View dated 03/08/2021 FINDINGS: Lines: Pacemaker. Lungs: No evidence of edema or pneumonia. Pleural: No significant pleural effusions or pneumothorax. Cardiac: The heart size is within normal limits. Mediastinum: Within normal limits. Bones: No acute fractures. Soft tissue anchors in the right humeral head. Other: None IMPRESSION: No acute cardiopulmonary disease.
[2022-08-01 15:48] LABS: Albumin 3.6 g/dL (3.4-5.0); Potassium 3.6 mmol/L (3.5-5.1); Protein, Total 7.4 g/dL (6.4-8.2)
[2022-08-01 15:52] LABS: Protime INR 1.28
[2022-08-01 16:23] LABS: Blood Morphology Comment NOT SEEN (NOT SEEN); Platelet Estimate DECR
[2022-08-01] MEDS ORDERED: ACETAMINOPHEN 500 MG TAB PO PRN (21:32)
[2022-08-01 21:52] VITALS: BMI 26.9
[2022-08-01 22:05] LABS: Magnesium 2.2 mg/dL (1.8-2.4); Phosphorus 3.5 mg/dL (2.5-4.9)
[2022-08-01] MEDS: NA CHLORIDE 0.9% 1,000 ML IV SCH (23:36)
[2022-08-02] MEDS: ALBUTEROL 2.5 MG/3 ML NEB SOL NEB SCH ×4 (03:00→19:35)
[2022-08-02 04:08] LABS: Hematocrit 31.5 % (39.6-49.0); MCV 93.4 fL (80-100); MPV 8.7 fL (7.6-11.3); Protime INR 1.26; RBC Red Blood Cell Count 3.37 M/uL (4.33-5.43)
[2022-08-02 04:12] LABS: Lymphocytes % 75.7 % (15.3-44.8)
[2022-08-02 04:42] LABS: Albumin 2.9 g/dL (3.4-5.0); Bilirubin Total 0.8 mg/dL (0.2-1.0); Potassium 3.5 mmol/L (3.5-5.1); Protein, Total 6.1 g/dL (6.4-8.2)
[2022-08-02] MEDS ORDERED: GUAIFENESIN/CODEINE 5ML UCUP PO PRN (06:31)
[2022-08-02] MEDS ORDERED: ONDANSETRON 4 MG/2 ML VIAL IV PRN (06:32)
[2022-08-02] MEDS ORDERED: INSULIN -REGULAR HUMAN 50 UNIT/0.5 ML ML SQ SCH (07:30)
[2022-08-02] MEDS ORDERED: POTASSIUM CL SA 10 MEQ TAB PO ONE (09:00)
[2022-08-02] MEDS: OSELTAMIVIR 75 MG CAP PO SCH ×2 (09:26→21:41)
[2022-08-02] MEDS: NA CHLORIDE 0.9% 1,000 ML IV SCH ×3 (10:30→23:00)
[2022-08-02 12:13] LABS: Absolute Lymphocytes (CBC) 8.6 K/uL (0.7-4.9); Hematocrit 30.8 % (39.6-49.0); Lymphocytes % 76.8 % (15.3-44.8); MCV 93.5 fL (80-100); MPV 8.8 fL (7.6-11.3)
[2022-08-02 12:40] LABS: Specific Gravity 1.019 (1.005-1.030); Urine Bilirubin NEGATIVE (Negative); Urine Blood 1+ (Negative); Urine Clarity Clear (Clear); Urine Color Yellow (Yellow); Urine Glucose TRACE (Negative); Urine Mucus Slight /HPF (None Seen); Urine Protein TRACE (Negative); Urine RBC <5 /HPF (None Seen); Urine Urobilinogen Normal (Normal)
--- NOTE | 2022-08-02 13:22 | EKG ---
Test Date: 2022-08-01 Test Time: 15:44:57 Coat Joiner Lockstitch: NIMCO MEASUREMENT RESULTS: Intervals: Rate: 76 VT: QRSD: 106 QT: 404 QTc: 454 [place]: P: VT: QRS: -22 T: 111 INTERPRETIVE STATEMENTS: Demand pacemaker, interpretation is based on intrinsic rhythm Atrial fibrillation with premature ventricular or aberrantly conducted complexes ST & T wave abnormality, consider lateral ischemia or digitalis effect Abnormal ECG Compared to ECG 03/08/2021 00:28:54 Ventricular premature complex(es) now present ST (T wave) deviation now present Possible ischemia now present Electronically Signed On 08-02-22 13:21:09 REBAR WORKER by Stone Ny
[2022-08-02 13:43] LABS: Blood Morphology Comment NOT SEEN (NOT SEEN); Platelet Estimate DECR
--- NOTE | 2022-08-02 19:50 | PN ---
Date of Progress Note: 08/02/2022 The patient states he feels somewhat better today. However, he is still clinically dehydrated. His platelet count is 50,000 on admission. I feel that he would benefit from another overnight stay with hydration and he is still rather weak as far as mobilization is concerned. His appetite is also dec reased still. Therefore, we will keep him today and probably discharge him tomorrow. HR/MODL Voice ID: [id number] Report ID: [id number]
[2022-08-03] MEDS: NA CHLORIDE 0.9% 1,000 ML IV SCH ×2 (01:18→11:30)
[2022-08-03] MEDS: ALBUTEROL 2.5 MG/3 ML NEB SOL NEB SCH ×2 (01:20→08:00)
[2022-08-03 05:42] LABS: Absolute Lymphocytes (CBC) 7.6 K/uL (0.7-4.9); Hematocrit 30.4 % (39.6-49.0); Lymphocytes % 82.9 % (15.3-44.8); MCV 93.5 fL (80-100); MPV 8.5 fL (7.6-11.3); RBC Red Blood Cell Count 3.25 M/uL (4.33-5.43)
[2022-08-03 06:00] LABS: Albumin 2.7 g/dL (3.4-5.0); Bilirubin Direct 0.2 mg/dL (0-0.2); Bilirubin Total 0.6 mg/dL (0.2-1.0); Potassium 3.5 mmol/L (3.5-5.1); Protein, Total 5.8 g/dL (6.4-8.2)
[2022-08-03] MEDS: OSELTAMIVIR 75 MG CAP PO SCH (08:26)
[2022-08-03] MEDS ORDERED: POTASSIUM CL SA 10 MEQ TAB PO ONE (09:00)
[2022-08-03] MEDS ORDERED: METOPROLOL XL 25 MG TAB PO SCH (09:00)
[2022-08-03] MEDS ORDERED: CLOPIDOGREL 75 MG TABLET PO SCH (09:00)
[2022-08-03] MEDS ORDERED: VITAMIN D 400 UNIT TAB PO SCH (09:00)
[2022-08-03] MEDS ORDERED: AMIODARONE HCL 200 MG TAB PO SCH (09:00)
[2022-08-03 10:23] VITALS: O2SAT 95
[2022-08-03 12:33] VITALS: BP 127/74; TEMP 97.3
--- NOTE | 2022-08-03 17:55 | PN ---
Date of Progress Note: 08/03/2022 The patient states he feels much better today, and in fact, does look much better. His appetite is i mproved, good intake and output, afebrile. Blood work is normal. Hydration is improved. I feel he could be discharged to continue the 5 days treatment of Tamiflu. Then, he will be followed up in the office on Saturday. HR/MODL Voice ID: [id number] Report ID: [id number]
== END 2022-08-03 14:39 | disposition home or self-care (01) | DRG 195 ==
LOC: ER 12:41 → ERHOLD 21:37 → 2ND 22:54
PROVIDERS: ADMIT Family Medicine; ATTEND Family Medicine
DX: J10.1 Influenza due to other identified influenza virus with other respiratory manifestations (principal); D69.6 Thrombocytopenia, unspecified; E86.0 Dehydration; Z28.310 Unvaccinated for COVID-19; Z20.822 Contact with and (suspected) exposure to COVID-19
CPT/HCPCS: 0240U; 36415; 71046; 80048; 80053; 80061; 80076; 81001; 82947; 83605; 83735; 83880; 84100; 85025; 85610; 85730; 87040; 93005; 94640; 94760; 97116; 97161; 97530; 99285; J7030; J7613

== ENCOUNTER → 2023-11-16 | Emergency (ER) | payer OTHER, MEDICARE ==
[~2023-11-16] MED LIST: ASPIRIN 325 MG TAB ONE; CEFEPIME 1 GM/VIAL ONE; CEFTRIAXONE 1000 MG/VIAL ONE; METRONIDAZOLE 500mg IVPB 500 MG/100 ML BAG IV ONE; MORPHINE 4 MG/ML SYR ONE; NA CHLORIDE 0.9% 100 ML ONE; ONDANSETRON 4 MG/2 ML VIAL ONE
[2023-11-16 07:47] LABS: Absolute Basophils 0.1 K/uL (0-0.5); Absolute Lymphocytes (CBC) 17.1 K/uL (0.7-4.9); Absolute Monocytes 0.2 K/uL (0.1-1.3); Absolute Neutrophil 2.2 K/uL (1.8-8.0); Basophils % 0.3 % (0-1.3); Eosinophils % 0.2 % (0-4.4); Hematocrit 39.9 % (39.6-49.0); Hemoglobin 12.9 g/dL (13.6-17.9); Lymphocytes % 86.9 % (15.3-44.8); MCH 30.5 pg (27.0-35.0); MCHC 32.2 g/dL (32.0-36.0); MCV 94.6 fL (80-100); MPV 8.3 fL (7.6-11.3); Monocytes % 1.2 % (3.3-12.3); Neutrophils % 11.4 % (41.7-73.7); Nucleated Red Blood Cells % 0.1 % (0-0); PT Prothrombin Time 12.9 SECONDS (9.5-12.5); Platelets 48 thou/uL (152-406); Protime INR 1.18; RBC Red Blood Cell Count 4.22 M/uL (4.33-5.43); Red Cell Distribution Width 15.6 % (12.1-15.2)
[2023-11-16 08:02] LABS: Troponin High Sensitivity 6.6 pg/mL (<58.9)
[2023-11-16 08:36] LABS: Specific Gravity 1.023 (1.005-1.030); Sqamous Epithelial <5 /HPF (None Seen); Urine Bacteria None Seen /HPF (<20); Urine Bilirubin NEGATIVE (Negative); Urine Blood Trace (Negative); Urine Clarity Clear (Clear); Urine Color Yellow (Yellow); Urine Culture Reflex Order NOT NEEDED; Urine Glucose NEGATIVE (Negative); Urine Ketones NEGATIVE (Negative); Urine Microscopic Reflex YN ORDER UMIC; Urine Mucus Slight /HPF (None Seen); Urine Nitrite NEGATIVE (Negative); Urine Protein TRACE (Negative); Urine Urobilinogen 4+ (Over) (Normal); Urine WBC <5 /HPF (<5); Urine pH 6.5 (5.0-7.0)
--- NOTE | 2023-11-16 08:55 | RAD REPORT ---
EXAM DESCRIPTION: RAD - Chest Single View - 11/16/2023 8:40 am CLINICAL HISTORY: CHEST PAIN Chest pain. COMPARISON: Chest Single View dated 05/07/2023; Chest Pa And Lat (2 Views) dated 08/01/2022; Chest Pa And Lat (2 Views) dated 03/09/2021; Chest Single View dated 03/08/2021 FINDINGS: Portable technique limits examination quality. The lungs are grossly clear. The heart is moderately enlarged in size. Multi lead pacer/defibrillator device is present. No displaced fractures. IMPRESSION: No acute intrathoracic process suspected.
[2023-11-16 08:57] LABS: Atypical Lymphocytes 5 %; Differential Total Cells Count 100; Lymphocytes 82 % (15-42); Monocytes 1 % (0-10); Segmented Neutrophils 12 % (40-80); Smudge Cells 5
[2023-11-16 08:58] LABS: Blood Morphology Comment NOT SEEN (NOT SEEN); Platelet Estimate DECR
[2023-11-16 09:37] LABS: Specific Gravity 1.023 (1.005-1.030); Sqamous Epithelial <5 /HPF (None Seen); Urine Bacteria None Seen /HPF (<20); Urine Bilirubin NEGATIVE (Negative); Urine Blood Negative (Negative); Urine Clarity Clear (Clear); Urine Color Yellow (Yellow); Urine Culture Reflex Order NOT NEEDED; Urine Glucose NEGATIVE (Negative); Urine Ketones NEGATIVE (Negative); Urine Microscopic Reflex YN ORDER UMIC; Urine Mucus Slight /HPF (None Seen); Urine Nitrite NEGATIVE (Negative); Urine Protein TRACE (Negative); Urine Urobilinogen 4+ (Over) (Normal); Urine WBC <5 /HPF (<5); Urine pH 6.5 (5.0-7.0)
--- NOTE | 2023-11-16 09:50 | RAD REPORT ---
EXAM DESCRIPTION: CTAbdomen Pelvis W Contrast - 11/16/2023 9:32 am CLINICAL HISTORY: Abdominal pain. ABD PAIN COMPARISON: Abdomen Pelvis W Contrast dated 03/08/2021; CT ABD PELVIS W CONTRAST dated 08/07/2013 TECHNIQUE: Biphasic CT imaging of the abdomen and pelvis was performed with 100 ml non-ionic IV cont rast. All CT scans are performed using dose optimization technique as appropriate and may include automated exposure control or mA/KV adjustment according to patient size. FINDINGS: The inferior lung galarza are emphysematous but clear.Cardiomegaly is noted with pacemaker wires present. There is significant distention of the gallbladder noted. Common bile duct is mildly prominent throug hout its course measuring up to 10 mm. No definitive evidence of the common duct stone seen. Gallblad martha ultrasound may be useful for further evaluation biliary tree. Mild intrahepatic biliary tree dila tation. Spleen is mildly enlarged in size. Pancreatic duct is mildly dilated. Both adrenal glands normal. Flash ign right renal cyst. No solid mass hydronephrosis. There is a soft tissue mass present in the small bowel mesenteric along the right measuring 5.1 x 3.5 cm. Several additional adjacent small lymph nodes seen. Moderate stool is retained throughout the co riley. The appendix is normal. Prominent sigmoid diverticulosis coli without diverticulitis. No evidenc e of significant lymphadenopathy. Moderate lumbar degenerative changes. IMPRESSION: Gallbladder distention with both mild intra and extrahepatic biliary tree dilatation not ed. Pancreatic duct also shows mild dilatation. A definitive etiology for this finding is not seen, h owever further evaluation with gallbladder ultrasound and/or MRCP would be useful. 5.1 x 3.5 cm soft tissue mass the small bowel mesentery may be related to lymphoma or carcinoid tumor . PET-CT follow-up would be helpful to evaluate for increased metabolic activity in this lesion.
[2023-11-16 10:23] LABS: Albumin 3.5 g/dL (3.4-5.0); Albumin/Globulin Ratio 1.2 (1.1-1.8); Bilirubin Direct 0.9 mg/dL (0-0.2); Bilirubin Indirect, Calculated 0.6 mg/dL (0.2-0.8); Bilirubin Total 1.5 mg/dL (0.2-1.0); Protein, Total 6.5 g/dL (6.4-8.2)
--- NOTE | 2023-11-16 10:26 | ER ---
Nurse's Notes [facility] [place] Name: Jayden Millard Age: 83 yrs Sex: Male : 1940 Arrival Date: 11/16/2023 Time: 06:58 Bed 13 Private MD: Diagnosis: Acute cholecystitis;Chest pain, unspecified;mesenteric mass;elevated biliribun;dilated biliary ducts;pancreatitis Presentation: 11/15 06:59 Chief complaint: EMS states: woke up by chest pain, mid sternal rad to left ant chest rv wall. denies SOB. hx of htn and pacemaker. Coronavirus screen: At this time, the client does not indicate any symptoms associated with coronavirus-19. Ebola Screen: No symptoms or risks identified at this time. Initial Sepsis Screen: Does the patient meet any 2 criteria? No. Patient's initial sepsis screen is negative. Does the patient have a suspected source of infection? No. Patient's initial sepsis screen is negative. Risk Assessment: Do you want to hurt yourself or someone else? Patient reports no desire to harm self or others. Onset of symptoms was November 16, 2023. 06:59 Method Of Arrival: EMS: [facility] 06:59 Acuity: PK 2 rv Triage Assessment: 07:01 General: Appears comfortable, Behavior is calm, cooperative. Pain: Complains of pain in rv chest. Neuro: Level of Consciousness is awake, alert, obeys commands, Oriented to person, place, time, situation. Cardiovascular: Capillary refill < 3 seconds Patient's skin is warm and dry. Cardiovascular: Reports chest pain. Respiratory: Airway is patent Respiratory effort is even, unlabored. GI: No signs and/or symptoms were reported involving the gastrointestinal system. : No signs and/or symptoms were reported regarding the genitourinary system. Derm: Skin is intact. Historical: - PMHx: 07:01 back CA; Hypertensive disorder; Prostate Cancer; Spleen cancer; rv - PSHx: 07: pacemaker; prostate removed; rv - Immunization history:: Adult Immunizations up to date. - Social history:: Smoking status: Patient denies any tobacco usage or history of. - Family history:: not pertinent. - Hospitalizations: : No recent hospitalization is reported. - History obtained from: son. Screenin:02 [facility] ED Fall Risk Assessment (Adult) History of falling in the last 3 months, rv including since admission No falls in past 3 months (0 pts) Score/Fall Risk Level 3 or more points = High Risk Oriented to surroundings, Maintained a safe environment, Educated pt \T\ family on fall prevention, incl call for assistance when getting out of bed, Assessed \T\ reinforced patient's understanding of fall precautions. Abuse screen: Denies threats or abuse. Denies injuries from another. Nutritional screening: No deficits noted. Tuberculosis screening: No symptoms or risk factors identified. Assessment: 07:00 General: RECD REPORT FROM JAYDEN ALLEN. 83YO WM P/W CHEST PAIN, H/O PACER. bp 08:32 Reassessment: No changes from previously documented assessment. Patient is alert, bp oriented x 3, equal unlabored respirations, skin warm/dry/pink. 09:42 Reassessment: RETURNED FROM CT. bp 11:39 Reassessment: REPORT TO LYNSEY ALLEN FOR [facility] TRANSFER. bp Vital Signs: 06:59 BP 131 / 71; Pulse 70; Resp 17; Temp 98; Pulse Ox 99% ; Weight 78.93 kg; Height 5 ft. rv 10 in. ; 07:23 BP 116 / 73; Pulse 75; Resp 21; Pulse Ox 98% ; bp 08:32 BP 132 / 73; Pulse 71; Resp 20; Pulse Ox 98% ; bp 09:42 BP 138 / 74; Pulse 72; Resp 15; Pulse Ox 96% ; bp 11:39 BP 127 / 77; Pulse 70; Resp 16; Temp 98; Pulse Ox 94% ; bp 12:00 BP 116 / 62; Pulse 70; Resp 16; Pulse Ox 96% on R/A; me1 06:59 Body Mass Index 24.97 (78.93 kg, 177.8 cm) rv ED Course: 06:59 Patient arrived in ED. rv 07:01 Triage completed. rv 07:01 Warm blanket given. Pillow given. oe 07:01 Arm band placed on right wrist. rv 07:01 Bed in low position. Call light in reach. Side rails up X2. oe 07:02 Patient has correct armband on for positive identification. Client placed on continuous rv cardiac and pulse oximetry monitoring. NIBP monitoring applied. color television console monitor on. 07:02 No provider procedures requiring assistance completed. rv 07:10 Dawson Hernandez MD is Attending Physician. cp3 07:10 EKG done, by ED staff. bp 07:21 Morris Ye, RN is Primary Nurse. bp 07:39 Basic Metabolic Panel Sent. bp 07:39 CBC with Diff Sent. bp 07:39 NT PRO-BNP Sent. bp 07:40 PT-INR Sent. bp 07:40 Troponin HS Sent. bp 07:40 Inserted saline lock: 22 gauge in right forearm, using aseptic technique. Blood bp collected. 08:18 Assisted with urinal. mc5 08:28 Urine collected: clean catch specimen, tanmay colored, Amount Voided: 300mL. mc5 08:29 Urinalysis w/ reflexes Sent. mc5 08:32 XRAY Chest (1 view) Sent. bp 08:42 XRAY Chest (1 view) In Process Unspecified. EDMS 09:20 Blood Culture Adult (2) Sent. bp 09:20 Lactate w/ 2H reflex if indic. Sent. bp 09:34 CT Abd/Pelvis - IV Contrast Only In Process Unspecified. EDMS 09:56 Private physician. eb 10:29 initiated a transfer with Sherry from the [facility]. eb 10:32 initiated a transfer with Bronwyn from the [facility] transfer [place] at the request of the patient. 10:35 US Abdomen Limited In Process Unspecified. EDMS 10:59 connected the general surgeon position description manager for [facility] with Dr. Hernandez or patient eb transfer consultation. 11:02 connected the hospitalist position description manager for [facility] with Dr. Hernandez for patient eb transfer consultation. 11:07 administrative approval given by Dania Hernández Rn/ patient has been accepted to [facility] 15 tower 1505/ Dr. Yifan Szymanski has accepted the patient in transfer/ report to be called to [phone]. 11:41 Patient transferred, IV remains in place. bp 12:22 Ela Burk, TIFFANY is Primary Nurse. me1 Administered Medications: 08:31 Drug: morphine IVP or IV 4 mg IVP once over 4 mins Route: IVP; Infused Over: 4 mins; bp Site: right forearm; 11:39 Follow up: Response: No adverse reaction bp 08:31 Drug: Ondansetron IVP 4 mg IVP once; over 2 minutes Route: IVP; Site: right forearm; bp 11:38 Follow up: Response: No adverse reaction bp 08:32 Drug: Aspirin PO 325 mg PO once Route: PO; bp 11:39 Follow up: Response: No adverse reaction bp 08:56 CANCELLED (Patient Refused): ns 0.9% 250 ml IV at bolus once cp3 09:40 Drug: Rocephin IV 1 grams IV at calculated rate once; Given slow IV push per pharmacy bp instructions Route: IV; Rate: calculated rate; Site: right forearm; 11:38 Follow up: IV Status: Completed infusion; IV Intake: 100ml bp 10:33 Drug: Cefepime IVPB 1 grams IVPB at 200 ml/hr once over 30 mins; (mix in NS 100 mL) bp Route: IVPB; Rate: 200 ml/hr; Infused Over: 30 mins; Site: right forearm; 11:37 Follow up: IV Status: Completed infusion; IV Intake: 100ml bp 11:15 Drug: metroNIDAZOLE IVPB 500 mg 100 ml IVPB at 200 ml/hr once over 30 mins Volume: 100 bp ml; Route: IVPB; Rate: 200 ml/hr; Infused Over: 30 mins; Site: right forearm; 12:12 Follow up: Response: No adverse reaction; IV Status: Completed infusion me1 Medication: 07:02 VIS not applicable for this client. rv Intake: 11:37 IV: 100ml; Total: 100ml. bp 11:38 IV: 100ml; Total: 200ml. bp Outcome: 10:25 ER care complete, transfer ordered by . cp3 11:41 Transferred by ground EMS to [facility], Transfer form completed. bp 11:41 Condition: stable 11:41 Instructed on the need for transfer, 12:22 Patient left the ED. me1 Signatures: Dispatcher [employer] Dawson Bangura MD MD cp3 Kristofer Puente Brian RN RN bp Jaye Coto Ronaldo, RN RN rv Ela Burk RN RN me1 Barbara Meadows [facility]
--- NOTE | 2023-11-16 10:26 | EDPHYS ---
Physician Documentation [facility] Name: Mo Millard Age: 83 yrs Sex: Male : 1940 Arrival Date: 11/16/2023 Time: 06:58 Bed 13 Private MD: ED Physician Dawson Hernandez HPI: 11/15 08:16 This 83 yrs old Male presents to ER via EMS with unknown complaint. cp3 08:16 This 83 yrs old Male presents to ER via EMS with complaints of chest pain. cp3 08:16 The patient is a 83-year-old male with a history of prostate, spleen, back cancer with cp3 a history of pacemaker who presents to the ED with chest pain that started last night. The patient is described as tightness to the left chest without radiation. The patient denies fever, chills, nausea, vomiting, diaphoresis. The patient endorses mild shortness of breath intermittently but not acutely related to the chest discomfort. The patient was concerned because the chest pain dissipated yesterday and then this morning started up and woke him up out of sleep. No related syncope. Historical: - PMHx: 07:01 back CA; Hypertensive disorder; Prostate Cancer; Spleen cancer; rv - PSHx: 07:01 pacemaker; prostate removed; rv - Immunization history:: Adult Immunizations up to date. - Social history:: Smoking status: Patient denies any tobacco usage or history of. - Family history:: not pertinent. - Hospitalizations: : No recent hospitalization is reported. - History obtained from: son. ROS: 08:16 Constitutional: Negative for fever, chills, and weight loss, Eyes: Negative for injury, cp3 pain, redness, and discharge, ENT: Negative for injury, pain, and discharge, Neck: Negative for injury, pain, and swelling, Respiratory: Negative for shortness of breath, cough, wheezing, and pleuritic chest pain, Abdomen/GI: Negative for abdominal pain, nausea, vomiting, diarrhea, and constipation, Back: Negative for injury and pain, : Negative for injury, bleeding, discharge, and swelling, MS/Extremity: Negative for injury and deformity, Skin: Negative for injury, rash, and discoloration, Neuro: Negative for headache, weakness, numbness, tingling, and seizure, Psych: Negative for depression, anxiety, suicide ideation, homicidal ideation, and hallucinations, Allergy/Immunology: Negative for hives, rash, and allergies, Endocrine: Negative for neck swelling, polydipsia, polyuria, polyphagia, and marked weight changes, Hematologic/Lymphatic: Negative for swollen nodes, abnormal bleeding, and unusual bruising, 08:16 Cardiovascular: Positive for chest pain, Exam: 08:16 Constitutional: This is a well developed, well nourished patient who is awake, alert, cp3 and in no acute distress. Head/Face: Normocephalic, atraumatic. ENT: Nares patent. No nasal discharge, no septal abnormalities noted. Tympanic membranes are normal and external auditory canals are clear. Oropharynx with no redness, swelling, or masses, exudates, or evidence of obstruction, uvula midline. Mucous membranes moist. Neck: Trachea midline, no thyromegaly or masses palpated, and no cervical lymphadenopathy. Supple, full range of motion without nuchal rigidity, or vertebral point tenderness. No Meningismus. Chest/axilla: Normal chest wall appearance and motion. Nontender with no deformity. No lesions are appreciated. Cardiovascular: Regular rate and rhythm with a normal S1 and S2. No gallops, murmurs, or rubs. Normal PMI, no JVD. No pulse deficits. Respiratory: Lungs have equal breath sounds bilaterally, clear to auscultation and percussion. No rales, rhonchi or wheezes noted. No increased work of breathing, no retractions or nasal flaring. Abdomen/GI: Soft, non-tender, with normal bowel sounds. No distension or tympany. No guarding or rebound. No evidence of tenderness throughout. Back: No spinal tenderness. No costovertebral tenderness. Full range of motion. Skin: Warm, dry with normal turgor. Normal color with no rashes, no lesions, and no evidence of cellulitis. MS/ Extremity: Pulses equal, no cyanosis. Neurovascular intact. Full, normal range of motion. Neuro: Awake and alert, GCS 15, oriented to person, place, time, and situation. Cranial nerves II-XII grossly intact. Motor strength 5/5 in all extremities. Sensory grossly intact. Cerebellar exam normal. Normal gait. Vital Signs: 06:59 BP 131 / 71; Pulse 70; Resp 17; Temp 98; Pulse Ox 99% ; Weight 78.93 kg; Height 5 ft. rv 10 in. ; 07:23 BP 116 / 73; Pulse 75; Resp 21; Pulse Ox 98% ; bp 08:32 BP 132 / 73; Pulse 71; Resp 20; Pulse Ox 98% ; bp 09:42 BP 138 / 74; Pulse 72; Resp 15; Pulse Ox 96% ; bp 11:39 BP 127 / 77; Pulse 70; Resp 16; Temp 98; Pulse Ox 94% ; bp 12:00 BP 116 / 62; Pulse 70; Resp 16; Pulse Ox 96% on R/A; me1 06:59 Body Mass Index 24.97 (78.93 kg, 177.8 cm) rv MDM: 07:09 Patient medically screened. cp3 08:16 Differential diagnosis: The differential diagnosis includes acute coronary syndrome, cp3 NSTEMI, pancreatitis, arrhythmia, nonspecific chest pain. Data reviewed: EKG interpreted by me: Rate 71, ventricular paced rhythm rhythm with PVCs, no evidence of acute CA. Consideration of Admission/Observation Escalation of care including admission/observation considered. 10:30 I considered the following discharge prescriptions or medication management in the 3 emergency department Medications were administered in the Emergency Department. See MAR. Response to treatment: the patient's symptoms have markedly improved after treatment. ED course: case discussed with Dr. Yuen- in light of elevated LFT's and dilated bile ducts recommend transfer for gi eval in complex patient. 10:31 Independent interpretation of the following test(s) in the Emergency Department CT cp3 Scan: My interpretation is . Historians other than the Patient: Daughter/Son: patient's son endorses patient is not getting any transfer treatment. 11:07 Management of patient was discussed with the following: Assistant Editor: Dr. Yuen - [facility] please transport, [facility] Gen Surgery, [facility] Hospitalist - Dr. Szymanski. 11/15 07:28 Order name: Basic Metabolic Panel; Complete Time: 08:50 bp 11/15 07:28 Order name: CBC with Diff; Complete Time: 09:37 bp 11/15 07:28 Order name: NT PRO-BNP; Complete Time: 08:50 bp 11/15 07:28 Order name: PT-INR; Complete Time: 08:50 bp 11/15 07:28 Order name: Troponin HS; Complete Time: 08:50 bp 11/15 07:55 Order name: Lipase; Complete Time: 08:50 cp3 11/15 08:26 Order name: Urinalysis w/ reflexes; Complete Time: 08:50 bp 11/15 08:52 Order name: Manual Differential; Complete Time: 09:37 EDMS 11/15 08:54 Order name: Blood Culture Adult (2) cp3 11/15 08:54 Order name: Lactate w/ 2H reflex if indic.; Complete Time: 09:52 cp3 11/15 08:57 Order name: Urinalysis w/ reflexes; Complete Time: 09:37 cp3 11/15 10:00 Order name: Hepatic Function; Complete Time: 10:24 cp3 11/15 07:28 Order name: XRAY Chest (1 view); Complete Time: 08:56 bp 11/15 08:58 Order name: CT Abd/Pelvis - IV Contrast Only; Complete Time: 09:52 cp3 11/15 09:53 Order name: US Abdomen Limited; Complete Time: 10:59 cp3 11/15 07:28 Order name: EKG; Complete Time: 07:29 bp 11/15 07:28 Order name: Cardiac monitoring; Complete Time: 07:28 bp 11/15 07:28 Order name: EKG - Nurse/Tech; Complete Time: 07:28 bp 11/15 07:28 Order name: IV Saline Lock; Complete Time: 07:39 bp 11/15 07:28 Order name: Labs collected and sent; Complete Time: 07:39 bp 11/15 07:28 Order name: O2 Per Protocol; Complete Time: 07:28 bp 11/15 07:28 Order name: O2 Sat Monitoring; Complete Time: 07:28 bp 11/15 08:54 Order name: Accucheck; Complete Time: 09:01 cp3 11/15 08:54 Order name: Cardiac monitoring; Complete Time: 09:01 cp3 11/15 08:54 Order name: EKG - Nurse/Tech; Complete Time: 09:01 cp3 11/15 08:54 Order name: IV Saline Lock - Large Bore; Complete Time: 09:01 cp3 11/15 08:54 Order name: Labs collected and sent; Complete Time: 09:01 cp3 11/15 08:54 Order name: O2 Per Protocol; Complete Time: 09:02 cp3 11/15 08:54 Order name: O2 Sat Monitoring; Complete Time: 09:02 cp3 11/15 08:54 Order name: Vital Signs; Complete Time: :02 cp3 Administered Medications: 08:31 Drug: morphine IVP or IV 4 mg IVP once over 4 mins Route: IVP; Infused Over: 4 mins; bp Site: right forearm; 11:39 Follow up: Response: No adverse reaction bp 08:31 Drug: Ondansetron IVP 4 mg IVP once; over 2 minutes Route: IVP; Site: right forearm; bp 11:38 Follow up: Response: No adverse reaction bp 08:32 Drug: Aspirin PO 325 mg PO once Route: PO; bp 11:39 Follow up: Response: No adverse reaction bp 08:56 CANCELLED (Patient Refused): ns 0.9% 250 ml IV at bolus once cp3 09:40 Drug: Rocephin IV 1 grams IV at calculated rate once; Given slow IV push per pharmacy bp instructions Route: IV; Rate: calculated rate; Site: right forearm; 11:38 Follow up: IV Status: Completed infusion; IV Intake: 100ml bp 10:33 Drug: Cefepime IVPB 1 grams IVPB at 200 ml/hr once over 30 mins; (mix in NS 100 mL) bp Route: IVPB; Rate: 200 ml/hr; Infused Over: 30 mins; Site: right forearm; 11:37 Follow up: IV Status: Completed infusion; IV Intake: 100ml bp 11:15 Drug: metroNIDAZOLE IVPB 500 mg 100 ml IVPB at 200 ml/hr once over 30 mins Volume: 100 bp ml; Route: IVPB; Rate: 200 ml/hr; Infused Over: 30 mins; Site: right forearm; 12:12 Follow up: Response: No adverse reaction; IV Status: Completed infusion me1 Disposition: 11:09 Critical Care:. cp3 Disposition Summary: 11/16/23 10:25 Transfer Ordered Notes: Reason: Higher level of care cp3 Condition: Stable cp3 Problem: new cp3 Symptoms: have improved cp3 Transfer Location: [facility](11/16/23 11:40) eb Accepting Physician: Dr. Lea Szymanski(11/16/23 12:22) me1 Diagnosis - Acute cholecystitis cp3 - Chest pain, unspecified cp3 - mesenteric mass cp3 - elevated biliribun cp3 - dilated biliary ducts cp3 - pancreatitis cp3 Forms: - Medication Reconciliation Form cp3 - SBAR form cp3 Critical care time excluding procedures: 11:09 Critical care time: Consultation: 65 minutes. Total time: 65 minutes cp3 Signatures: Dispatcher [employer] Dawson Bangura MD MD cp3 Morris Ye RN RN Jaye Coto Ronaldo, RN RN Ela Burk RN RN me1 Corrections: (The following items were deleted from the chart) 08:56 08:55 NS 0.9% IV 250 ml IV at bolus once ordered. cp3 cp3 10:26 10:25 pending cp3 cp3 10:38 10:26 pending cp3 cp3 11:40 10:25 Other Acute Care Facility cp3 eb 11:40 10:38 pending cp3 eb 12:22 11:40 Dr. Lea Szymanski eb me1
--- NOTE | 2023-11-16 10:56 | RAD REPORT ---
EXAM DESCRIPTION: US - Abdomen Exam Limited - 11/16/2023 10:33 am CLINICAL HISTORY: ABD PAIN COMPARISON: No comparisons FINDINGS: The gallbladder demonstrates distention. No gallstones visualized. No pericholecystic flui d or gallbladder wall thickening. The common bile duct is mildly prominent measuring 10 mm.. The liver demonstrates no findings of intrahepatic biliary dilatation. IMPRESSION: Distended gallbladder without stone visualized. 10 mm common bile duct is mildly enlarg ed for age. MRCP may be considered for follow up on a nonemergent basis.
[2023-11-16 12:54] VITALS: BP 116/62; TEMP 98; O2SAT 96
--- NOTE | 2023-11-18 14:26 | EKG ---
Test Date: 2023-11-16 Test Time: 07:05:51 Senior Engineering Associate: BP MEASUREMENT RESULTS: Intervals: Rate: 71 WY: QRSD: 180 QT: 482 QTc: 523 Ault: P: WY: QRS: 132 T: -27 INTERPRETIVE STATEMENTS: Ventricular-paced rhythm with occasional premature ventricular complexes Abnormal ECG Compared to ECG 05/07/2023 06:39:32 No significant changes Electronically Signed On 11-18-23 14:24:04 CDT by [place]
== END ==
LOC: ER 06:58
DX: K81.0 Acute cholecystitis (principal); K66.8 Other specified disorders of peritoneum; E80.7 Disorder of bilirubin metabolism, unspecified; K85.90 Acute pancreatitis without necrosis or infection, unspecified; K83.8 Other specified diseases of biliary tract; I10 Essential (primary) hypertension; Z95.0 Presence of cardiac pacemaker; Z85.46 Personal history of malignant neoplasm of prostate; Z85.89 Personal history of malignant neoplasm of other organs and systems
CPT/HCPCS: 96365; 96367; 93005; 87040 ×2; 85025; 81001 ×2; 80048; 36415; 87205; 85610; 80076; 83605; 84484; 83690; 83880; 74177; 71045; 76705; 96375; 99285; Q9967; J2405; J0692; J0696

== ENCOUNTER 2024-05-18 14:16 | Emergency (ER) | payer OTHER, MEDICARE ==
[2024-05-18] MEDS ORDERED: HYDROCODONE/APAP 7.5/325 MG TAB ONE (15:09)
[2024-05-18 15:14] LABS: Absolute Basophils 0.2 K/uL (0-0.5); Absolute Lymphocytes (CBC) 20.4 K/uL (0.7-4.9); Absolute Monocytes 0.2 K/uL (0.1-1.3); Absolute Neutrophil 1.2 K/uL (1.8-8.0); Basophils % 0.9 % (0-1.3); Eosinophils % 0.2 % (0-4.4); Hematocrit 33.6 % (39.6-49.0); Hemoglobin 11.1 g/dL (13.6-17.9); Lymphocytes % 92.4 % (15.3-44.8); MCH 30.4 pg (27.0-35.0); MCHC 33.1 g/dL (32.0-36.0); MCV 91.8 fL (80-100); MPV 8.5 fL (7.6-11.3); Monocytes % 0.9 % (3.3-12.3); Neutrophils % 5.6 % (41.7-73.7); PT Prothrombin Time 12.7 SECONDS (9.4-12.5); Platelets 42 thou/uL (152-406); Protime INR 1.14; RBC Red Blood Cell Count 3.66 M/uL (4.33-5.43); Red Cell Distribution Width 16.1 % (12.1-15.2)
[2024-05-18 15:23] LABS: Anion Gap 8.3 mEq/L (5.0-15.0); Potassium 4.3 mEq/L (3.5-5.1)
--- NOTE | 2024-05-18 15:58 | RAD REPORT ---
EXAMINATION: Ankle Right 3 View CLINICAL INDICATION: Male, 83 years old. [facility] MAIN PAIN TECHNIQUE: 3 view radiographs of the right ankle were obtained. COMPARISON: No prior exam. FINDINGS: No evidence of acute fracture or dislocation. Normal alignment. No joint effusion. Mild deg enerative changes at the tibiotalar and mid foot articulations. Moderate calcaneal spur and other small ossified densities near the plantar fascia attachment suggesting long-standing sequelae of plan tar fasciitis. Mild enthesopathy at the Achilles tendon attachment. No evidence of focal bone lesion. Vascular calcifications. IMPRESSION: No acute osseous abnormality. Chronic findings as above.
--- NOTE | 2024-05-18 16:53 | RAD REPORT ---
EXAMINATION:Lower Extremity Artery Uni Ltd CLINICAL INDICATION: Male, 83 years old. [facility] MAIN leg Pain;Swelling Bed Name: 18 TECHNIQUE: Arterial duplex ultrasound was performed of the right lower extremity with real-time, colo r-flow, and spectral wave Doppler evaluation. COMPARISON: No prior exam. FINDINGS: Moderate plaque throughout the evaluated arterial system. Triphasic waveforms are seen along the righ t common femoral artery. Biphasic waveforms are seen throughout the subsequent right lower extremity arterial system, to the level of the popliteal artery. Monophasic waveforms are seen along the posterior tibial artery. Now patient flow seen along the dorsalis pedis artery. No other suspicious findings. IMPRESSION: Evidence of moderate to advanced peripheral vascular disease.
[2024-05-18 17:03] LABS: Differential Total Cells Count 100; Lymphocytes 87 % (15-42); Segmented Neutrophils 7 % (40-80)
[2024-05-18 17:04] LABS: Blood Morphology Comment NOT SEEN (NOT SEEN); Monocytes 1 % (0-10); Platelet Estimate DECR; Reactive Lymphocytes 5 %; Smudge Cells PRESENT
--- NOTE | 2024-05-18 17:05 | RAD REPORT ---
EXAMINATION: US RIGHT LOWER EXTREMITY VENOUS DOPPLER CLINICAL INDICATION: [facility] MAIN leg Pain;Swelling TECHNIQUE: Complete bilateral duplex sonography of the RIGHT lower extremity veins was performed. The examination included compression for vein patency, color Doppler imaging and flow augmentation in response to distal compression of the distal external iliac, common femoral, femoral, popliteal, tibi al, and great and small saphenous veins. COMPARISON: No prior exam. FINDINGS: Duplex sonography testing of the veins of the RIGHT lower extremity was performed. Color flow imaging shows all veins to be compressible with [id number] color filling. Pulsatile and phasic flow is present within all lower extremity deep and superficial veins examined. IMPRESSION: No evidence of deep venous thrombosis.
--- NOTE | 2024-05-18 17:14 | ER ---
Nurse's Notes [facility] [place] Name: Mo Millard Age: 83 yrs Sex: Male : 1940 Arrival Date: 05/18/2024 Time: 14:16 Bed 18 Private MD: Diagnosis: Cellulitis of right lower limb Presentation: 05/18 14:33 Chief complaint: Patient states: Right lower leg pain onset yesterday. Pt reports cm10 having chronic pain to that leg and it got worse yesterday. Pt noted to have redness to the leg. Coronavirus screen: Client denies travel out of the [place] in the last 14 days. At this time, the client does not indicate any symptoms associated with coronavirus-19. Ebola Screen: Patient denies travel to an Ebola-affected area in the 21 days before illness onset. No symptoms or risks identified at this time. Initial Sepsis Screen: Does the patient meet any 2 criteria? No. Patient's initial sepsis screen is negative. Does the patient have a suspected source of infection? No. Patient's initial sepsis screen is negative. Risk Assessment: Do you want to hurt yourself or someone else? Patient reports no desire to harm self or others. Onset of symptoms was May 18, 2024. 14:33 Method Of Arrival: Ambulatory cm10 14:33 Acuity: PK 3 cm10 Triage Assessment: 14:35 General: Appears in no apparent distress. comfortable, Behavior is calm, cooperative. cm10 Neuro: No deficits noted. Level of Consciousness is awake, alert, obeys commands, Oriented to person, place, time, situation, Appropriate for age. Respiratory: No deficits noted. Airway is patent Respiratory effort is even, unlabored, Respiratory pattern is regular, symmetrical. Historical: - Allergies: 14:35 No Known Allergies; cm10 - PMHx: 14:35 back CA; Hypertensive disorder; Prostate Cancer; Spleen cancer; cm10 - PSHx: 14:35 pacemaker; prostate removed; Coronary artery bypass graft; cm10 - Immunization history:: Adult Immunizations up to date. - Infectious Disease History:: Denies. - Social history:: Smoking status: Patient denies any tobacco usage or history of. Screenin:36 [facility] ED Fall Risk Assessment (Adult) History of falling in the last 3 months, rs5 including since admission No falls in past 3 months (0 pts) Confusion or Disorientation No (0 pts) Intoxicated or Sedated No (0 pts) Impaired Gait Yes (1 pt) Mobility Assist Device Used Yes (1 pt) Altered Elimination No (0 pt) Score/Fall Risk Level 0 - 2 = Low Risk Oriented to surroundings, Maintained a safe environment. 14:36 Abuse screen: Denies threats or abuse. Nutritional screening: No deficits noted. rs5 Tuberculosis screening: No symptoms or risk factors identified. Assessment: 14:37 General: Appears in no apparent distress. uncomfortable, Behavior is calm, cooperative. rs5 Pain: Complains of pain in right leg Pain currently is 8 out of 10 on a pain scale. Quality of pain is described as aching, Is continuous. Neuro: Level of Consciousness is awake, alert, obeys commands, Oriented to person, place, time, situation. Cardiovascular: Patient's skin is warm and dry. Respiratory: Airway is patent Respiratory effort is even, unlabored, Respiratory pattern is regular, symmetrical. GI: Abdomen is round non-distended, Abd is soft and non tender X 4 quads. : No signs and/or symptoms were reported regarding the genitourinary system. EENT: No signs and/or symptoms were reported regarding the EENT system. Derm: Skin is intact, Skin is pink, warm \T\ dry. Musculoskeletal: Swelling present in right leg. 16:01 Reassessment: Patient and/or family updated on plan of care and expected duration. Pain rs5 level reassessed. Patient is alert, oriented x 3, equal unlabored respirations, skin warm/dry/pink. 16:45 Reassessment: No changes from previously documented assessment. rs5 17:39 Reassessment: Patient and/or family updated on plan of care and expected duration. Pain rs5 level reassessed. Patient is alert, oriented x 3, equal unlabored respirations, skin warm/dry/pink. Patient states feeling better. Patient states symptoms have improved. Vital Signs: 14:33 BP 122 / 81; Pulse 86; Resp 16; Temp 97.4; Pulse Ox 97% on R/A; Weight 77.11 kg; Height cm10 5 ft. 9 in. ; Pain 5/10; 16:01 BP 117 / 67; Pulse 77; Resp 17; Pulse Ox 99% ; rs5 16:45 BP 114 / 71; Pulse 80; Resp 17; Pulse Ox 99% on R/A; rs5 17:30 BP 117 / 75; Pulse 84; Resp 17; Pulse Ox 99% on R/A; rs5 14:33 Body Mass Index 25.10 (77.11 kg, 175.26 cm) cm10 14:33 Pain Scale: Adult cm10 ED Course: 14:19 Patient arrived in ED. ra3 14:21 Laurel Juarez PA-C is PHCP. sb4 14:21 Ty Locke MD is Attending Physician. sb4 14:35 Triage completed. cm10 14:35 Arm band placed on Patient placed in an exam room, on a stretcher. cm10 14:36 Patient has correct armband on for positive identification. Placed in gown. Bed in low rs5 position. Call light in reach. Side rails up X2. 14:36 No provider procedures requiring assistance completed. rs5 14:40 Inserted saline lock: 20 gauge in right antecubital area, using aseptic technique. rs5 Blood collected. Flushed with 10 mL NS. 14:52 Paco Jorge, RN is Primary Nurse. rs5 15:14 Ankle Right 3 View XRAY In Process Unspecified. EDMS 16:05 Extremity Venous Uni Ltd US In Process Unspecified. EDMS 16:05 Lower Extremity Artery Beyond the Box US In Process Unspecified. EDMS 17:13 Andre Lei MD is Referral Physician. sb4 17:35 IV discontinued, intact, bleeding controlled, No redness/swelling at site. Pressure rs5 dressing applied. Administered Medications: 15:01 Drug: Hydrocodone-Acetaminophen PO (7.5 mg-325 mg) 1 tabs PO once Route: PO; rs5 16:01 Follow up: Response: No adverse reaction; Pain is decreased rs5 17:12 Drug: Clindamycin PO 300 mg PO once Route: PO; rs5 Medication: 16:47 VIS not applicable for this client. rs5 Outcome: 17:13 Discharge ordered by . sb4 17:35 Discharged to home via wheelchair, with family, rs5 17:35 Condition: stable rs5 17:35 Discharge instructions given to patient, family, Instructed on discharge instructions, follow up and referral plans. medication usage, Demonstrated understanding of instructions, follow-up care, medications, Prescriptions given X 1, 17:39 Patient left the ED. rs5 Signatures: Dispatcher [employer] EDMS Laurel Juarez, FLORENCE PANadeem sb4 Paco Jorge RN RN rs5 Lucy Luu RN RN cm10 Lacy Do ra3 Corrections: (The following items were deleted from the chart) 18:50 18:40 BP 117 / 75; Pulse 84bpm; Resp 17bpm; Pulse Ox 99% RA; rs5 rs5
--- NOTE | 2024-05-18 17:14 | EDPHYS ---
Physician Documentation [facility] Name: Mo Millard Age: 83 yrs Sex: Male : 1940 Arrival Date: 05/18/2024 Time: 14:16 Bed 18 Private MD: ED Physician Ty Locke HPI: 05/18 14:48 This 83 yrs old Male presents to ER via Ambulatory with complaints of Leg Swelling - sb4 right. 14:48 The patient presents with pain, swelling. The complaints affect the anterior aspect of sb4 right ankle. Onset: The symptoms/episode began/occurred 3 day(s) ago. patient reports chronic right ankle pain but states the pain got worse about 3 days ago. he denies any injury. he does have chronic venous insufficiency and has had vascular procedures done, is not currently on any blood thinners. he reports mild swelling and warmth in the leg as well. denies any history of gout. states he did have this a few years back, was diagnosed with a mild cellulitis, and got much better with antibiotics. Historical: - Allergies: 14:35 No Known Allergies; cm10 - PMHx: 14:35 back CA; Hypertensive disorder; Prostate Cancer; Spleen cancer; cm10 - PSHx: 14:35 pacemaker; prostate removed; Coronary artery bypass graft; cm10 - Immunization history:: Adult Immunizations up to date. - Infectious Disease History:: Denies. - Social history:: Smoking status: Patient denies any tobacco usage or history of. ROS: 14:48 Constitutional: Negative for fever, chills, and weight loss, sb4 14:48 Skin: Positive for swelling, of the anterior aspect of right ankle, 14:48 All other systems are negative, Exam: 14:48 Constitutional: This is a well developed, well nourished patient who is awake, alert, sb4 and in no acute distress. Head/Face: Normocephalic, atraumatic. Eyes: Extra-ocular motions intact. Periorbital areas with no swelling, redness, or edema. ENT: Mucous membranes moist. 14:48 Cardiovascular: Regular rate and rhythm with a normal S1 and S2. Respiratory: Lungs have equal breath sounds bilaterally, clear to auscultation and percussion. No rales, rhonchi or wheezes noted. No increased work of breathing, no retractions or nasal flaring. 14:48 Skin: venous stasis pattern noted to right friedman/ankle that is chronic in nature. mild swelling and warmth right ankle. Vital Signs: 14:33 BP 122 / 81; Pulse 86; Resp 16; Temp 97.4; Pulse Ox 97% on R/A; Weight 77.11 kg; Height cm10 5 ft. 9 in. ; Pain 5/10; 16:01 BP 117 / 67; Pulse 77; Resp 17; Pulse Ox 99% ; rs5 16:45 BP 114 / 71; Pulse 80; Resp 17; Pulse Ox 99% on R/A; rs5 17:30 BP 117 / 75; Pulse 84; Resp 17; Pulse Ox 99% on R/A; rs5 14:33 Body Mass Index 25.10 (77.11 kg, 175.26 cm) cm10 14:33 Pain Scale: Adult cm10 MDM: 14:36 Patient medically screened. sb4 17:12 Data reviewed: vital signs, nurses notes, lab test result(s), radiologic studies, and sb4 as a result, I will discharge patient. Historians other than the Patient: Daughter/Son: sons. Care significantly affected by the following chronic conditions: Hypertension, Cancer. Counseling: I had a detailed discussion with the patient and/or guardian regarding the historical points, exam findings, and any diagnostic results supporting the discharge/admit diagnosis, lab results, radiology results, the need for outpatient follow up, for definitive care, to return to the emergency department if symptoms worsen or persist or if there are any questions or concerns that arise at home. 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 05/18 14:42 Order name: CBC with Diff; Complete Time: 17:06 sb4 05/18 14:42 Order name: BMP; Complete Time: 15:23 sb4 05/18 14:42 Order name: PT-INR; Complete Time: 15:15 sb4 05/18 16:56 Order name: Manual Differential; Complete Time: 17:06 EDMS 05/18 14:42 Order name: Extremity Venous Uni Ltd US; Complete Time: 17:06 sb4 05/18 14:42 Order name: Lower Extremity Artery Uni Ltd US; Complete Time: 16:56 sb4 05/18 14:42 Order name: Ankle Right 3 View XRAY; Complete Time: 15:59 sb4 05/18 14:42 Order name: IV Saline Lock; Complete Time: 15:15 sb4 05/18 14:42 Order name: Labs collected and sent; Complete Time: 15:15 sb4 Administered Medications: 15:01 Drug: Hydrocodone-Acetaminophen PO (7.5 mg-325 mg) 1 tabs PO once Route: PO; rs5 16:01 Follow up: Response: No adverse reaction; Pain is decreased rs5 17:12 Drug: Clindamycin PO 300 mg PO once Route: PO; rs5 Disposition: 17:43 Co-signature as Attending Physician, yT Locke MD I reviewed the patient's care rn provided by the Advanced Practice Provider and agree with the diagnosis and treatment plan. Disposition Summary: 05/18/24 17:13 Discharge Ordered Notes: Location: Home sb4 Problem: new sb4 Symptoms: have improved sb4 Condition: Stable sb4 Diagnosis - Cellulitis of right lower limb sb4 Followup: sb4 - With: Andre Lei MD - When: 2 - 3 days - Reason: Recheck today's complaints, Re-evaluation by your physician Discharge Instructions: - Discharge Summary Sheet sb4 - Cellulitis, Adult sb4 Forms: - Antibiotic Education sb4 - Patient Portal Instructions sb4 - Leadership Thank You Letter sb4 Prescriptions: - Clindamycin HCl 300 mg Oral Capsule - take 1 capsule ORAL route every 6 hours for 10 days; 40 capsule; Refills: 0, sb4 Product Selection Permitted Signatures: Dispatcher [employer] Ty Sanchez MD MD rn Brown, Sophia, PA-C PA-C sb4 Paco Jorge RN RN rs5 Lucy Luu RN RN cm10
[2024-05-18 18:20] VITALS: TEMP 97.4
[2024-05-18 18:22] VITALS: O2SAT 99
[2024-05-18 18:24] VITALS: BP 114/71
== END 2024-05-18 17:39 | disposition home or self-care (01) ==
LOC: ER 14:16
DX: L03.115 Cellulitis of right lower limb (principal)
CPT/HCPCS: 36415; 80048; 85025; 85610; 93926; 93971; 99284

== ENCOUNTER 2024-11-25 12:00 | Inpatient (IN) | payer OTHER, MEDICARE ==
--- NOTE | 2024-11-25 14:10 | RAD REPORT ---
EXAMINATION: CT ABDOMEN AND PELVIS WITHOUT CONTRAST CLINICAL INDICATION: Abdominal pain TECHNIQUE: CT abdomen and pelvis was performed, as per department protocol. IV contrast and oral was not administered.Axial, sagittal and coronal reconstructions were obtained. One or more of the following dose reduction techniques were used: Automated exposure control, adjustment of the mA and/o r kV according to the patient size, and/or iterative reconstruction. Unless otherwise specified, incidental findings do not require dedicated imaging follow-up. [id number]. COMPARISON: November 2023 FINDINGS: The lack of intravenous and oral contrast limits evaluation of solid organs, vessels and bowel. Spleen measures 17 cm. Liver, pancreas, adrenals and left kidney grossly normal. 2 right renal cysts. Largest 2.6 cm. 5.6 cm lobulated mass within the mesentery to the right of midline at the lower level of the kidneys. It has mildly enlarged since the prior exam. There are several adjacent lymph nodes measuring about a centimeter. Moderate amount stool within the colon. No evidence of diverticulitis. Prostatectomy. Development of mild compression of the L4 vertebral body. Mild anterior subluxation L4 on L5 Spondylo sis results in mild central spinal stenosis. Borderline gallbladder distention. The wall does not appear thickened IMPRESSION: 5.6 cm lobulated mass within the mesentery to the right of midline mildly enlarged from prior exam ma y represent lymphoma. There are several adjacent smaller lymph nodes. Moderate splenomegaly Borderline gallbladder distention without evidence of cholecystitis Mild compression fracture L4 vertebral body has developed since the prior exam. It probably is either late subacute or relatively chronic.
[2024-11-25] MEDS ORDERED: MORPHINE 4 MG/ML SYR ONE (14:41)
[2024-11-25] MEDS ORDERED: ONDANSETRON 4 MG/2 ML VIAL ONE (14:41)
[2024-11-25] MEDS ORDERED: NA CHLORIDE 0.9% 1,000 ML ONE ×2 (14:42→18:45)
[2024-11-25 15:09] LABS: Absolute Basophils 0.1 K/uL (0-0.5); Absolute Eosinophils 0.1 K/uL (0-0.5); Absolute Lymphocytes (CBC) 13.3 K/uL (0.7-4.9); Absolute Monocytes 0.1 K/uL (0.1-1.3); Absolute Neutrophil 1.5 K/uL (1.8-8.0); Basophils % 0.4 % (0-1.3); Eosinophils % 0.7 % (0-4.4); Hematocrit 34.3 % (39.6-49.0); Hemoglobin 11.1 g/dL (13.6-17.9); Lymphocytes % 87.7 % (15.3-44.8); MCH 29.7 pg (27.0-35.0); MCHC 32.4 g/dL (32.0-36.0); MCV 91.7 fL (80-100); MPV 8.1 fL (7.6-11.3); Neutrophils % 10.2 % (41.7-73.7); Platelets 51 thou/uL (152-406); RBC Red Blood Cell Count 3.74 M/uL (4.33-5.43); Red Cell Distribution Width 15.8 % (12.1-15.2)
[2024-11-25 15:20] LABS: Platelet Estimate DECR; Platelets, Giant PRESENT; White Blood Cell Scan OK (OK)
[2024-11-25 15:21] LABS: Blood Morphology Comment NOT SEEN (NOT SEEN)
[2024-11-25 15:24] LABS: Albumin 3.3 g/dL (3.4-5.0); Anion Gap 8.3 mEq/L (5.0-15.0); Bilirubin Total 1.1 mg/dL (0.2-1.0); Globulin 3.4 g/dL (2.3-3.5); Potassium 4.3 mEq/L (3.5-5.1); Protein, Total 6.7 g/dL (6.4-8.2)
--- NOTE | 2024-11-25 16:02 | RAD REPORT ---
EXAM: Abdominal exam Limited ultrasound CLINICAL HISTORY: Abdominal pain COMPARISON: None FINDINGS: A gallstone is not seen. Gallbladder wall not thickened. Borderline gallbladder distention. Mild adenomyomatosis gallbladder Biliary tree normal caliber IMPRESSION: Borderline gallbladder distention without visualization of a calculus
--- NOTE | 2024-11-25 16:28 | EDPHYS ---
Physician Documentation [facility] Name: Mo Millard Age: 84 yrs Sex: Male : 1940 Arrival Date: 11/25/2024 Time: 12:00 Bed 16 Private MD: ED Physician Sean Ontiveros HPI: 11/25 13:10 This 84 yrs old Male presents to ER via Wheelchair with complaints of ec2 Abnormal Lab Results. 13:10 Patient arrives today for evaluation of right-sided abdominal pain. Patient reports he ec2 been having some right-sided abdominal and flank pain. Reports no vomiting, no diarrheal issues. Reports no blood in the urine. Reports no history of kidney stones.. Historical: - Allergies: 12:38 No Known Allergies; iw - PMHx: 12:38 back CA; Hypertensive disorder; Prostate Cancer; Spleen cancer; iw - PSHx: 12:38 Coronary artery bypass graft; pacemaker; prostate removed; iw - Immunization history:: Adult Immunizations unknown. - Infectious Disease History:: Denies. - Social history:: Smoking status: unknown. ROS: 13:11 Constitutional: as per hpi ec2 Exam: 13:11 Constitutional: GEN: NAD Head: atraumatic Eyes: EOMI Ears: External ears are ec2 normal. CV: regular rate LUNGS: no respiratory distress ABD: non-distended, soft, tender in the right abdomen, no guarding or rigid SKIN: no evidence of rashes MSK: no evidence of trauma Vital Signs: 12:37 BP 109 / 66; Pulse 84; Resp 16; Temp 97.6; Pulse Ox 98% ; Weight 76.2 kg; Height 5 ft. iw 8 in. ; 12:37 Body Mass Index 25.54 (76.20 kg, 172.72 cm) iw MDM: 13:11 Data reviewed: vital signs, nurses notes. ED course: Patient arrives today for ec2 right-sided abdominal pain. Examination yields abdominal findings as above. Will obtain lab work, urine studies, CT imaging. DDx include processes such as ureteral stone, UTI, gastritis.. 13:22 Medical Screening Exam initiated ec2 15:37 ED course: CBC shows leukocytosis of 15. Metabolic profile shows appropriate ec2 electrolytes and liver profile. Lipase within normal ranges. CT abdomen pelvis shows likely lymphoma, splenomegaly is associated with this. Also gallbladder distention. Pending ultrasonography.. 16:27 ED course: CT imaging shows distended gallbladder, ultrasonography also shows distended ec2 gallbladder, no evidence of gallbladder wall thickening, my assessment patient does have point right upper quadrant TTP, patient does have leukocytosis as well, will give the patient Zosyn, admit for general surgery consultation for cholecystitis. Discussed with the hospitalist as well as general surgeon, patient agreeable. Will admit.. 11/25 12:56 Order name: CBC with Diff; Complete Time: 15:37 ec2 11/25 12:56 Order name: CMP; Complete Time: 15:37 ec2 11/25 12:56 Order name: Lipase; Complete Time: 15:37 ec2 11/25 12:56 Order name: Urinalysis w/ reflexes ec2 11/25 15:21 Order name: CBC Smear Scan; Complete Time: 15:37 EDMS 11/25 17:42 Order name: Urinalysis w/ reflexes EDMS 11/25 17:42 Order name: CBC with Automated Diff EDMS 11/25 17:42 Order name: CBC with Automated Diff EDMS 11/25 17:42 Order name: CBC with Automated Diff EDMS 11/25 17:42 Order name: CBC with Automated Diff EDMS 11/25 17:42 Order name: CBC with Automated Diff EDMS 11/25 17:42 Order name: CBC with Automated Diff EDMS 11/25 17:42 Order name: Comprehensive Metabolic Panel EDMS 11/25 17:42 Order name: Comprehensive Metabolic Panel EDMS 11/25 17:42 Order name: Comprehensive Metabolic Panel EDMS 11/25 17:42 Order name: Comprehensive Metabolic Panel EDMS 11/25 17:42 Order name: Comprehensive Metabolic Panel EDMS 11/25 17:42 Order name: Comprehensive Metabolic Panel EDMS 11/26 09:08 Order name: Manual Differential EDMS 11/25 12:56 Order name: CT Abd/Pelvis - Without Contrast; Complete Time: 14:21 ec2 11/25 14:22 Order name: US Abdomen Limited; Complete Time: 16:04 ec2 11/25 17:42 Order name: Hepatobiliary System W/ Ph EDMS 11/26 08:15 Order name: NM EDMS 11/25 12:56 Order name: IV Saline Lock; Complete Time: 14:58 ec2 11/25 12:56 Order name: Labs collected and sent; Complete Time: 14:58 ec2 Administered Medications: 15:58 Drug: NS 0.9% IV 1000 ml IV at 1 bolus Per protocol; to be given as a bolus over 60 ap3 minutes Route: IV; Rate: 1 bolus; Site: right antecubital; 16:45 Not Given (Patient Refused): ondansetron 4 mg IVP once; over 2 minutes ap3 16:45 Not Given (Patient Refused): morphineor iv 4 mg IVP once over 4 mins ap3 17:03 Drug: Piperacillin-Tazobactam IVPB 3.375 grams IVPB once over 60 mins; (mix in NS 100 ap3 mL) Route: IVPB; Infused Over: 60 mins; Site: right antecubital; Disposition Summary: 11/25/24 16:28 Hospitalization Ordered Notes: Hospitalization Status: Inpatient Admission ec2 Provider: Zain Locke ec2 Condition: Stable ec2 Problem: new ec2 Symptoms: have improved ec2 Bed/Room Type: Standard ec2 Location: Telemetry/MedSurg (Inpatient)(11/26/24 14:52) Room Assignment: 214(11/26/24 14:52) Diagnosis - Acute cholecystitis ec2 Forms: - Medication Reconciliation Form ec2 - SBAR form ec2 - Leadership Thank You Letter ec2 Signatures: Dispatcher [employer] EDDo Phillips RN RN Francheska Arce RN RN ss Precious Mcdowell RN RN ap3 Joya Larson RN RN kb3 Lucy Gordon 6 Sean Ontiveros MD MD ec2 Nicolle Ulrich RN RN kj2 Corrections: (The following items were deleted from the chart) 12:57 12:56 CBC+H.LAB.BRZ ordered. EDMS EDMS 12:57 12:56 COMPREHENSIVE METABOLIC PANEL+C.LAB.BRZ ordered. EDMS EDMS 12:57 12:56 LIPASE+C.LAB.BRZ ordered. EDMS EDMS 12:57 12:56 Urinalysis+U.LAB.BRZ ordered. EDMS EDMS 12:57 12:57 Abdomen Pelvis Wo Con+CT.RAD.BRZ ordered. EDVT EDMS 18:35 16:28 Telemetry/MedSurg (Inpatient) ec2 kb3 18:35 16:28 ec2 kb3 11/26 13:01 11/25 18:35 [facility] ER HOLD kb3 bc6 11/26 13:01 11/25 18:35 ERHOLD- kb3 bc6 11/26 13:39 13:01 Telemetry/MedSurg (Inpatient) bc6 bc6 13:39 13:01 408 bc6 bc6 13:55 13:39 bc6 kb3 14:52 13:39 [facility] ER HOLD bc6 ss 14:52 13:55 ERHOLD- kb3 ss
--- NOTE | 2024-11-25 16:28 | ER ---
Nurse's Notes [facility] [place] [place] Name: Mo Millard Age: 84 yrs Sex: Male : 1940 Arrival Date: 11/25/2024 Time: 12:00 Bed 16 Private MD: Diagnosis: Acute cholecystitis Presentation: 11/25 12:37 Chief complaint: Patient's son or daughter states: abd pain X 5 days , sent from Dr. fatmata Lei for possible kidney stone. Coronavirus screen: At this time, the client does not indicate any symptoms associated with coronavirus-19. Ebola Screen: No symptoms or risks identified at this time. Initial Sepsis Screen: Does the patient meet any 2 criteria? No. Patient's initial sepsis screen is negative. Does the patient have a suspected source of infection? No. Patient's initial sepsis screen is negative. Risk Assessment: Do you want to hurt yourself or someone else? Patient reports no desire to harm self or others. Onset of symptoms was November 20, 2024. 12:37 Method Of Arrival: Wheelchair iw 12:37 Acuity: PK 3 iw Triage Assessment: 11/26 12:15 General: Appears in no apparent distress. Behavior is calm, cooperative. Pain: Denies kj2 pain. Historical: - Allergies: 11/25 12:38 No Known Allergies; iw - PMHx: 12:38 back CA; Hypertensive disorder; Prostate Cancer; Spleen cancer; iw - PSHx: 12:38 Coronary artery bypass graft; pacemaker; prostate removed; iw - Immunization history:: Adult Immunizations unknown. - Infectious Disease History:: Denies. - Social history:: Smoking status: unknown. Screenin/27 12:15 [facility] ED Fall Risk Assessment (Adult) History of falling in the last 3 months, kj2 including since admission No falls in past 3 months (0 pts) Confusion or Disorientation No (0 pts) Intoxicated or Sedated No (0 pts) Impaired Gait Yes (1 pt) Mobility Assist Device Used Yes (1 pt) Altered Elimination No (0 pt) Score/Fall Risk Level 0 - 2 = Low Risk Maintained a safe environment, Hourly rounding (assess needs \T\ fall precautionary measures) done. Abuse screen: Denies threats or abuse. Denies injuries from another. Nutritional screening: No deficits noted. Tuberculosis screening: No symptoms or risk factors identified. Vital Signs: 11/25 12:37 BP 109 / 66; Pulse 84; Resp 16; Temp 97.6; Pulse Ox 98% ; Weight 76.2 kg; Height 5 ft. iw 8 in. ; 12:37 Body Mass Index 25.54 (76.20 kg, 172.72 cm) ED Course: 12:03 Patient arrived in ED. cj3 12:11 Sean Ontiveros MD is Attending Physician. ec2 12:38 Triage completed. iw 13:33 CT Abd/Pelvis - Without Contrast In Process Unspecified. EDMS 13:53 Arm band placed on Patient placed in an exam room, on a stretcher. ll1 14:50 Precious Mcdowell, RN is Primary Nurse. ap3 15:26 US Abdomen Limited In Process Unspecified. EDMS 16:28 Zain Locke MD is Hospitalizing Provider. ec2 19:22 Primary Nurse role handed off by Precious Mcdowell, TIFFANY rv1 11/26 12:15 IV is intact, with fluids infusing freely, with good blood return, kj2 12:15 No provider procedures requiring assistance completed. kj2 13:11 Nicolle Ulrich, TIFFANY is Primary Nurse. kj2 Administered Medications: 11/25 15:58 Drug: NS 0.9% IV 1000 ml IV at 1 bolus Per protocol; to be given as a bolus over 60 ap3 minutes Route: IV; Rate: 1 bolus; Site: right antecubital; 16:45 Not Given (Patient Refused): ondansetron 4 mg IVP once; over 2 minutes ap3 16:45 Not Given (Patient Refused): morphineor iv 4 mg IVP once over 4 mins ap3 17:03 Drug: Piperacillin-Tazobactam IVPB 3.375 grams IVPB once over 60 mins; (mix in NS 100 ap3 mL) Route: IVPB; Infused Over: 60 mins; Site: right antecubital; Medication: 11/26 12:15 VIS not applicable for this client. kj2 Outcome: 11/25 16:28 Decision to Hospitalize by Provider. ec2 11/26 15:35 Patient left the ED. ll1 Signatures: Dispatcher [employer] EDMS Do Ornelas RN RN iw Precious Mcdowell RN RN ap3 Jaelyn Saucedo RN RN ll1 Ofe Alfaro rv1 Sean Ontiveros MD MD ec2 Nicolle Ulrich RN RN kj2 Kim Johnson cj3
[2024-11-25] MEDS ORDERED: NA CHLORIDE 0.9% 100 ML ONE (16:52)
[2024-11-25] MEDS ORDERED: PIPERACIL/TAZO 3.375 GM VIAL IV ONE (16:53)
[2024-11-25] MEDS ORDERED: ONDANSETRON 4 MG/2 ML VIAL IV PRN (17:36)
--- NOTE | 2024-11-25 17:48 | P.HP ---
Certification for Inpatient Patient admitted to: Observation With expected LOS: <2 Midnights Patient will require the following post-hospital care: None Practitioner: I am a practitioner with admitting privileges, knowledge of patient current condition, hospital course, and medical plan of care. Services: Services provided to patient in accordance with Admission requirements found in Title 42 Section 412.3 of the Code of Federal Regulations Patient History Date of Service: 11/25/24 Reason for admission: Abdominal pain History of Present Illness: 84-year-old male with history of hypertension, CAD with previous CABG, pacemaker in place, lymphoma presents the emergency department chief complaint of abdominal pain. He reports the pain has been ongoing, worsening over the course of the last 5 days or so. Patient was valuated in the emergency department labs are significant for a white blood cell 15.[address] of the abdomen and pelvis show 5.6 cm lobulated mass within the mesentery to the right of midline mildly enlarged from prior exam which may represent lymphoma, several adjacent smaller lymph nodes present. Moderate by megaly, borderline gallbladder distention without evidence of cholecystitis. 2 abdominal ultrasound was performed showed borderline gallbladder distention without visualization of calculus. Patient was admitted for further evaluation and management of abdominal pain. Allergies No Known Allergies Allergy (Verified 07/10/23 15:19) Home Medications: Amiodarone HCl [Cordarone*] 1 tab PO DAILY 03/08/21 Cholecalciferol (Vitamin D3) [Vitamin D 400 IU TAB*] 1 tab PO DAILY 03/08/21 Metoprolol Succinate 25 mg PO DAILY 03/08/21 Clopidogrel Bisulfate [Plavix] 75 mg PO DAILY 08/01/22 Oseltamivir Phosphate [Tamiflu] 75 mg PO BID #6 cap 08/03/22 - Past Medical/Surgical History Diabetic: No -: afib -: prostate CA -: Lymphoma -: CAD with previous CABG -: cardioversion, coretta knee replaced, coretta shoulder surgery -: melanoma removed, prostatectomy, hemorrhoid removed, appy -: tonsillectomy -: prostate CA-removed prostate -: pacemaker - Family History Father -: Heart disease - Social History Alcohol use: Yes CD- Drugs: No Caffeine use: Yes Place of Residence: Home Review of Systems 10-point ROS is otherwise unremarkable Gastrointestinal: Abdominal Pain Physical Examination - Physical Exam General: Alert, In no apparent distress, Oriented x3 HEENT: Atraumatic, PERRLA, EOMI Neck: Supple, 2+ carotid pulse no bruit, No LAD Respiratory: Clear to auscultation bilaterally, Normal air movement Cardiovascular: Regular rate/rhythm, Normal S1 S2 Gastrointestinal: Normal bowel sounds, Tenderness (Mild abdominal tenderness, right-sided) Musculoskeletal: No tenderness Integumentary: No rashes Neurological: Normal speech, Normal strength at 5/5 x4 extr, Normal affect - Studies Laboratory Data (last 24 hrs) 11/25/24 11/25/24 14:57 14:57 WBC 15.10 H Hgb 11.1 L Hct 34.3 L Plt Count 51 L Sodium 138 Potassium 4.3 BUN 24 H Creatinine 0.89 Glucose 89 Total Bilirubin 1.1 H AST 18 ALT 17 Alkaline Phosphatase 82 Lipase 37 Assessment and Plan - Plan Assessment: Abdominal pain rule out cholecystitis Abdominal mass/lymphoma Leukocytosis/thrombocytopenia History of CAD with previous CABG pacemaker in place Hypertension Hyperlipidemia Plan: Abdominal pain rule out cholecystitis Abdominal mass/lymphoma Leukocytosis/thrombocytopenia Per chart review patient is known history of lymphoma Abdominal mass also being followed outpatient Started on empiric antibiotics, will obtain HIDA scan General Surgery consulted Unclear if pain is related to gallbladder or possibly to his abdominal mass/lymphoma White blood cell count and platelet count similar to previous/chronic History of CAD with previous CABG pacemaker in place Hypertension Hyperlipidemia Continue home medications when verified DVT PPX: SCDs given thrombocytopenia Code status: Full Discharge Plan: Home Plan to discharge in: 24 Hours - Advance Directives Does patient have a Living Will: No Does patient have a Durable POA for Healthcare: Yes - Code Status/Comfort Care Code Status Assessed: Yes (Full code) Critical Care: No Time Spent Managing Pts Care (In Minutes): 66
[2024-11-25] MEDS: NA CHLORIDE 0.9% 1,000 ML IV SCH (18:00)
[2024-11-25 18:11] VITALS: O2SAT 95; BMI 25.5
[2024-11-25 20:12] LABS: Specific Gravity 1.013 (1.005-1.030); Sqamous Epithelial <5 /HPF (None Seen); Urine Bacteria <20 /HPF (<20); Urine Bilirubin NEGATIVE (Negative); Urine Blood 1+ (Negative); Urine Clarity Clear (Clear); Urine Color Light-Yellow (Yellow); Urine Crystals Unidentified Few /HPF (None Seen); Urine Culture Reflex Order NOT NEEDED; Urine Glucose NEGATIVE (Negative); Urine Ketones NEGATIVE (Negative); Urine Microscopic Reflex YN ORDER UMIC; Urine Mucus Slight /HPF (None Seen); Urine Nitrite NEGATIVE (Negative); Urine Protein NEGATIVE (Negative); Urine RBC <5 /HPF (None Seen); Urine Urobilinogen Normal (Normal); Urine WBC <5 /HPF (<5); Urine WBC Clump Rare /HPF (None Seen); Urine pH 5.5 (5.0-7.0)
[2024-11-25] MEDS ORDERED: MORPHINE 2 MG/ML SYR ONE (23:50)
[2024-11-25] MEDS: MORPHINE 2 MG/ML SYR IV PRN (23:50)
[2024-11-26] MEDS ORDERED: PIPERACIL/TAZO 3.375 GM VIAL IV ONE ×2 (01:12→08:31)
[2024-11-26] MEDS ORDERED: NA CHLORIDE 0.9% 100 ML ONE ×2 (01:12→08:30)
[2024-11-26] MEDS: PIPER TAZO 3.375 GM in NA CHLORIDE 0.9% 100 ML IV SCH (01:42)
[2024-11-26 06:25] LABS: Absolute Eosinophils 0.1 K/uL (0-0.5); Absolute Lymphocytes (CBC) 12.3 K/uL (0.7-4.9); Absolute Monocytes 0.1 K/uL (0.1-1.3); Absolute Neutrophil 1.3 K/uL (1.8-8.0); Basophils % 0.2 % (0-1.3); Eosinophils % 0.7 % (0-4.4); Hematocrit 32.4 % (39.6-49.0); Hemoglobin 10.7 g/dL (13.6-17.9); Lymphocytes % 88.9 % (15.3-44.8); MCH 30.1 pg (27.0-35.0); MCHC 33.1 g/dL (32.0-36.0); MCV 90.9 fL (80-100); MPV 8.3 fL (7.6-11.3); Monocytes % 0.9 % (3.3-12.3); Neutrophils % 9.3 % (41.7-73.7); Nucleated Red Blood Cells % 0.1 % (0-0); Platelets 47 thou/uL (152-406); RBC Red Blood Cell Count 3.56 M/uL (4.33-5.43); Red Cell Distribution Width 15.6 % (12.1-15.2)
[2024-11-26 06:41] LABS: Albumin 2.9 g/dL (3.4-5.0); Albumin/Globulin Ratio 0.9 (1.1-1.8); Anion Gap 9.7 mEq/L (5.0-15.0); Bilirubin Total 1.3 mg/dL (0.2-1.0); Globulin 3.2 g/dL (2.3-3.5); Potassium 3.7 mEq/L (3.5-5.1); Protein, Total 6.1 g/dL (6.4-8.2)
--- NOTE | 2024-11-26 08:15 | RAD REPORT ---
EXAMINATION: NUCLEAR MEDICINE HIDA SCAN WITH GALLBLADDER EJECTION FRACTION CLINICAL INDICATION: Male, 84 years old. abd pain TECHNIQUE: Hepatobiliary imaging was acquired over the abdomen for 60 minutes following intravenous a dministration of radiotracer. Gallbladder ejection fraction determination was then performed utilizing synthetic 1.5 mgm CCK over a slow 30 minute infusion. RADIOPHARMACEUTICAL: 6.6 mCi Technetium 99m Mebrofenin. COMPARISON: 11/25/2024 FINDINGS: Normal hepatic uptake and excretion with appropriate clearance of background blood pool activity. Normal visualization of biliary and small bowel activity. Gallbladder visualizes within normal time limits. The calculated ejection fraction is 49% (normal greater than 35%). 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 No delay in visualization of the gallbladder, biliary tree, or duodenum. Ejection fraction is 49% (normal greater than 35%). Subjective patient pain assessment as detailed above.
[2024-11-26 09:06] LABS: Differential Total Cells Count 100; Eosinophils 1 % (0-3); Lymphocytes 6 % (15-42); Monocytes 1 % (0-10); Segmented Neutrophils 3 % (40-80)
[2024-11-26 09:07] LABS: Atypical Lymphocytes 89 %; Blood Morphology Comment NOT SEEN (NOT SEEN); Platelet Estimate DECR
--- NOTE | 2024-11-26 12:00 | CON ---
Date of Consultation: 11/25/2024 Reason: Abdominal pain. History Of Present Illness: The patient is an 84-year-old gentleman with multiple medical problems w ho presented to the emergency room with about a week history of right lower abdominal pain. He does not have any nausea or vomiting. He states that occasionally fried food will make his symptoms worse . No bloating, belching, or heartburn. No diarrhea or constipation. No blood in his stool. No dys uria or hematuria. No sore throat, runny nose, cough, headaches, or dizziness. No chest pain. No f ever or chills. The patient upon review of his [facility] chart by Dr. Locke was found to have history of lymphoma as well as a mesenteric mass that has been followed for more than 5 years. The patient also had some issue with his common bile duct and needed a papillotomy for a small stone that was done in [place] and he was told to possibly need a gallbladder surgery, which at the time the family and pat ient opted not to do and they were considering their options. He does have a history of this mass an d has been followed in [place]. Review of Systems: Otherwise unremarkable. Past Medical History: Significant for atrial fibrillation, prostate cancer, lymphoma, coronary arter y disease, melanoma. Past Surgical History: CABG, bilateral knee replacement, bilateral shoulder surgery, melanoma surger y, prostatectomy, hemorrhoidectomy, appendectomy, tonsillectomy, pacemaker placement. Allergies: HE HAS NO ALLERGIES. Social History: He does not drink alcohol, does not smoke and lives by himself. Family History: Heart disease. Physical Examination: Vital Signs: Stable. He is afebrile. General: He is awake, alert. He is oriented, but he does not recall the events clearly. Head and Neck: No masses. Chest: Clear. Heart: S1, S2. Abdomen: Soft, nondistended. Positive bowel sounds. Positive right middle and right lower quadrant tenderness. Today, there is no evidence of any peritonitis in the right upper quadrant. Extremities: Neurovascularly intact. Neuro: Nonfocal. Diagnostic Data: CT of the abdomen and pelvis shows a 5.6 cm lobulated mass within the mesentery to the right of midline, mildly enlarged from prior exam, may represent lymphoma. There are several adj acent smaller lymph nodes. There is moderate splenomegaly. There is borderline gallbladder distenti on without evidence for cholecystitis. There is a mild compression fracture of L4. This is either l ate, subacute, or relatively chronic. The patient also had ultrasound of the abdomen done, which jenn ws borderline gallbladder distention without visualization of a calculus. The patient had a HIDA sca n done, which was essentially negative with an ejection fraction of 49%. The patient had slight pain reported in the report. Laboratory Data: Significant for white count of 15.1, which has gone down to 13.9. His platelets we re 51 yesterday, today they are 47. He does have a left shift. Please note that his leukocytosis an d platelets are chronic issue. His electrolytes are reviewed. His LFTs are essentially normal. Lip ase is normal. His total bilirubin is slightly elevated 1.1 yesterday and 1.3 today. Assessment: An 84-year-old gentleman with right middle and right lower quadrant pain at this time. It may be due to some chronic cholecystitis, but patient does not have biliary atresia. The patient does not have acute cholecystitis and at this time, there is no evidence of cholelithiasis either. T he patient does have a mass in his right mid abdomen that is slightly enlarged and that may be a cont ributing factor to his pain as well. At this point in time, I think medical management is appropriat e as the patient had the workup done regarding the mass in [place] at followup thereafter we medically treat this patient in the hospital and send him back for followup and the family can rec onsider all of the surgical options that they discussed with them earlier. From our perspective, kendra pelletier does not have acute cholecystitis. I would recommend treating with empiric antibiotics, startin g on clear liquids, and advancing as tolerated. Anticipate discharge to be within 24-48 hours. The patient clinically looks well. Intervention is contemplated. The patient obviously would probably n eed platelets as his platelet count is low. Again, we need to have further discussion with the patie nt and family regarding how aggressive they want us to be and where they want these procedures to simran e place. The best place would obviously be at . /MODL Voice ID: [id number] Report ID: [id number]
--- NOTE | 2024-11-26 15:05 | P.PN ---
Date of Service: 11/26/24 Subjective: Some improvement in abdominal pain overnight Tolerating clear liquids ROS: 10 point ROS as noted above, otherwise negative Physical exam GEN: Alert, oriented, NAD HEENT: Normal conjunctiva, sclera anicteric CV: Regular rate and rhythm, no edema Pulm: Nonlabored respirations on room air ABD: Soft, mild generalized abdominal tenderness, nondistended MSK: No joint tenderness Integumentary: No rashes Neuro: Normal speech, normal affect Vitals reviewed Assessment: Abdominal pain rule out cholecystitis Abdominal mass/lymphoma Leukocytosis/thrombocytopenia History of CAD with previous CABG pacemaker in place Hypertension Hyperlipidemia Plan: Abdominal pain rule out cholecystitis Abdominal mass/lymphoma Leukocytosis/thrombocytopenia Per chart review patient is known history of lymphoma Abdominal mass also being followed outpatient Started on empiric antibiotics, will obtain HIDA scan General Surgery consulted-doubt acute cholecystitis, no clear indication for surgery at this time Pain likely more related to lymphoma/abdominal mass White blood cell count and platelet count similar to previous/chronic Patient and family aware of mass, have deferred treatment at this time Continue as needed oral pain medication, advance diet Recommend outpatient follow-up with oncology, [facility] who previously evaluated him for these issues Possible discharge tomorrow if tolerating diet, pain is tolerable History of CAD with previous CABG pacemaker in place Hypertension Hyperlipidemia Continue home medications when verified DVT PPX: SCDs given thrombocytopenia Code status: Full Discharge Plan: Home Plan to discharge in: 24 Hours Time Spent Managing Pts Care (In Minutes): 35
[2024-11-27 06:19] VITALS: TEMP 97.8
[2024-11-27 06:28] LABS: Absolute Basophils 0.1 K/uL (0-0.5); Absolute Eosinophils 0.1 K/uL (0-0.5); Absolute Lymphocytes (CBC) 14.8 K/uL (0.7-4.9); Absolute Monocytes 0.1 K/uL (0.1-1.3); Basophils % 0.3 % (0-1.3); Eosinophils % 0.7 % (0-4.4); Hematocrit 33.3 % (39.6-49.0); Lymphocytes % 86.3 % (15.3-44.8); MCH 30.4 pg (27.0-35.0); MCHC 33.2 g/dL (32.0-36.0); MCV 91.6 fL (80-100); MPV 8.4 fL (7.6-11.3); Monocytes % 0.8 % (3.3-12.3); Neutrophils % 11.9 % (41.7-73.7); Nucleated Red Blood Cells % 0.2 % (0-0); Platelets 53 thou/uL (152-406); RBC Red Blood Cell Count 3.63 M/uL (4.33-5.43); Red Cell Distribution Width 15.8 % (12.1-15.2)
[2024-11-27 06:57] LABS: Albumin 2.9 g/dL (3.4-5.0); Albumin/Globulin Ratio 0.9 (1.1-1.8); Anion Gap 11.7 mEq/L (5.0-15.0); Bilirubin Total 1.4 mg/dL (0.2-1.0); Globulin 3.2 g/dL (2.3-3.5); Potassium 3.7 mEq/L (3.5-5.1); Protein, Total 6.1 g/dL (6.4-8.2)
[2024-11-27 08:41] VITALS: BP 135/88
[2024-11-27 10:58] LABS: Blood Morphology Comment NOT SEEN (NOT SEEN); Platelet Estimate DECR; White Blood Cell Scan OK (OK)
--- NOTE | 2024-11-27 14:33 | P.DS ---
Admission Date: 11/26/24 Discharge Date: 11/27/24 Disposition: ROUTINE DISCHARGE Reason for Admission: Abdominal pain Brief History of Present Illness: 84-year-old male with history of hypertension, CAD with previous CABG, pacemaker in place, lymphoma presents the emergency department chief complaint of abdominal pain. He reports the pain has been ongoing, worsening over the course of the last 5 days or so. Patient was valuated in the emergency department labs are significant for a white blood cell 15.[address] of the abdomen and pelvis show 5.6 cm lobulated mass within the mesentery to the right of midline mildly enlarged from prior exam which may represent lymphoma, several adjacent smaller lymph nodes present. Moderate by megaly, borderline gallbladder distention without evidence of cholecystitis. 2 abdominal ultrasound was performed showed borderline gallbladder distention without visualization of calculus. Patient was admitted for further evaluation and management of abdominal pain. Hospital Course: Assessment: Abdominal pain rule out cholecystitis Abdominal mass/lymphoma Leukocytosis/thrombocytopenia History of CAD with previous CABG pacemaker in place Hypertension Hyperlipidemia Patient was admitted to the hospital for abdominal pain. His white blood cell count was elevated and platelet counts are low, this is chronic secondary to his lymphoma. Imaging was performed, CT of the abdomen and pelvis showed borderline gallbladder distention without evidence of cholecystitis, moderate splenomegaly, 5.6 cm lobulated mass within the mesentery to the right of the midline mildly enlarged from prior exam may represent lymphoma. There are several adjacent smaller lymph nodes. Subsequent abdominal ultrasound was performed which showed borderline gal lbladder distention without visualization of a calculus, normal biliary tree. No gallstones noted. HIDA scan was performed the next morning which showed patent cystic duct and patent sphincter of Oddi. No delayed visualization of the gallbladder, biliary tree or duodenum. Ejection fraction 49%normal. Medical records were reviewed from [facility] in [place] in 2023, the abdominal mass is known as well as the lymphoma, his labs are near his baseline. At the time of his evaluation [facility] they did discuss the risk benefits of possible surgery to remove the mass, he also had a sphincterotomy with stone removal at that time. Patient and family opted for more conservative measures at that time, this was again discussed with the family, we do recommend that they follow-up with [facility] specially if he has ongoing or worsening pain. Patient was evaluated by general surgery during the hospitalization, there is no evidence of acute cholecystitis currently, pain seems to be in the lower abdomen on the right more proximal to the mass that he has in his abdomen. We will send him a prescription for some pain medications and a short course of oral antibiotics, recommend following up with his doctors at [facility] in regards to the abdominal mass. Vital Signs/Physical Exam: Temp Pulse Resp BP Pulse Ox 97.8 F 87 14 135/88 93 11/27/24 08:00 11/27/24 08:00 11/27/24 08:00 11/27/24 08:00 11/27/24 08:00 General: Alert, In no apparent distress, Oriented x3 HEENT: Atraumatic, PERRLA, EOMI Neck: Supple, JVD not distended Respiratory: Clear to auscultation bilaterally, Normal air movement Cardiovascular: Regular rate/rhythm, Normal S1 S2 Gastrointestinal: Normal bowel sounds, No tenderness Musculoskeletal: No tenderness Integumentary: No rashes Neurological: Normal speech, Normal affect Laboratory Data at Discharge: WBC 17.20 thou/uL (4.3-10.9) H 11/27/24 05:18 Hgb 11.0 g/dL (13.6-17.9) L 11/27/24 05:18 Hct 33.3 % (39.6-49.0) L 11/27/24 05:18 Plt Count 53 thou/uL (152-406) L 11/27/24 05:18 Sodium 139 mEq/L (136-145) 11/27/24 05:18 Potassium 3.7 mEq/L (3.5-5.1) 11/27/24 05:18 BUN 15 mg/dL (7-18) 11/27/24 05:18 Creatinine 0.81 mg/dL (0.70-1.30) 11/27/24 05:18 Glucose 89 mg/dL (74-106) 11/27/24 05:18 Total Bilirubin 1.4 mg/dL (0.2-1.0) H 11/27/24 05:18 AST 18 U/L (15-37) 11/27/24 05:18 ALT 15 U/L (16-61) L 11/27/24 05:18 Alkaline Phosphatase 78 U/L (45-117) 11/27/24 05:18 Lipase 37 U/L (13-75) 11/25/24 14:57 Home Medications: Amiodarone HCl [Cordarone*] 1 tab PO DAILY 03/08/21 Cholecalciferol (Vitamin D3) [Vitamin D 400 IU TAB*] 1 tab PO DAILY 03/08/21 Metoprolol Succinate 25 mg PO DAILY 03/08/21 Amox/Clavulanate [Augmentin 875-125 Tab] 875 mg PO BID 7 Days #14 tab 11/27/24 Hydrocodone 5/APAP 325 [[place] 5/325] 1 tab PO Q6H PRN #15 tab 11/27/24 New Medications: Amox/Clavulanate [Augmentin 875-125 Tab] 875 mg PO BID 7 Days #14 tab Hydrocodone 5/APAP 325 [[place] 5/325] 1 tab PO Q6H PRN #15 tab PRN Reason: Pain Physician Discharge Instructions: Patient was admitted to the hospital for abdominal pain. His white blood cell count was elevated and platelet counts are low, this is chronic secondary to his lymphoma. Imaging was performed, CT of the abdomen and pelvis showed borderline gallbladder distention without evidence of cholecystitis, moderate splenomegaly, 5.6 cm lobulated mass within the mesentery to the right of the midline mildly enlarged from prior exam may represent lymphoma. There are several adjacent smaller lymph nodes. Subsequent abdominal ultrasound was performed which showed borderline gallbladder distention without visualization of a calculus, normal biliary tree. No gallstones noted. HIDA scan was performed the next morning which showed patent cystic duct and patent sphincter of Oddi. No delayed visualization of the gallbladder, biliary tree or duodenum. Ejection fraction 49%normal. Medical records were reviewed from [facility] in [place] in 2023, the abdominal mass is known as well as the lymphoma, his labs are near his baseline. At the time of his evaluation [facility] they did discuss the risk benefits of possible surgery to remove the mass, he also had a sphincterotomy with stone removal at that time. Patient and family opted for more conservative measures at that time, this was again discussed with the family, we do recommend that they follow-up with [facility] specially if he has ongoing or worsening pain. Patient was evaluated by general surgery during the hospitalization, there is no evidence of acute cholecystitis currently, pain seems to be in the lower abdomen on the right more proximal to the mass that he has in his abdomen. We will send him a prescription for some pain medications and a short course of oral antibiotics, recommend following up with his doctors at [facility] in regards to the abdominal mass. Diet: Low fat Activity: Fall precautions Followup: Andre Lei MD [Primary Care Provider] - 1-2 Weeks Time spent managing pt's care (in minutes): 48
== END 2024-11-27 10:55 | disposition home or self-care (01) | DRG 842 ==
LOC: ER 12:00 → ERHOLD 17:36 → 4TH 11-26 13:16 → ERHOLD 11-26 13:26 → OBSVTOIN 11-26 14:53 → 2ND 11-26 15:21
PROVIDERS: ADMIT Hospitalist; ATTEND Hospitalist
DX: C85.9A Non-Hodgkin lymphoma, unspecified, in remission (principal); K81.1 Chronic cholecystitis; I10 Essential (primary) hypertension; E78.5 Hyperlipidemia, unspecified; D69.6 Thrombocytopenia, unspecified; I25.10 Atherosclerotic heart disease of native coronary artery without angina pectoris; R19.00 Intra-abdominal and pelvic swelling, mass and lump, unspecified site; Z95.0 Presence of cardiac pacemaker; Z95.1 Presence of aortocoronary bypass graft; Z85.46 Personal history of malignant neoplasm of prostate; Z79.02 Long term (current) use of antithrombotics/antiplatelets; Z79.899 Other long term (current) drug therapy; Z96.653 Presence of artificial knee joint, bilateral
CPT/HCPCS: 36415; 74176; 76705; 78227; 80053; 81001; 83690; 85025; 96374; 99283; A9537; G0378; J2270; J2405; J2543; J2805; J7030

== ENCOUNTER 2024-12-01 16:15 | Emergency (ER) | payer OTHER, MEDICARE ==
--- NOTE | 2024-12-01 16:58 | RAD REPORT ---
EXAM: Chest Single View HISTORY: 84 years Male COUGH COMPARISON: 11/16/2023 FINDINGS: LUNGS/PLEURA: The lungs are clear. No pleural effusions or pneumothorax. No pulmonary edema. CARDIAC/MEDIASTINUM: Mild cardiomegaly UPPER ABDOMEN: No significant abnormality. BONES: No acute abnormality. LINES/TUBES/OTHER: Pacemaker present. IMPRESSION: No evidence of acute cardiopulmonary disease.
--- NOTE | 2024-12-01 17:31 | RAD REPORT ---
EXAMINATION: Head C Spine Mpr Wo Con CLINICAL INDICATION: Male, 84 years old. PAIN TECHNIQUE: Axial CT images from the skull base to the vertex without intravenous contrast. Axial CT i mages through the cervical spine were obtained without intravenous contrast. Sagittal and coronal reformatted images were created from the data set. Coronal and sagittal reformatted images were creat ed from the data set. One or more of the following dose reduction techniques were used: Automated exposure control, adjustment of the mA and/or kV according to patient size, and/or iterative reconstr uction. Unless otherwise specified, incidental findings do not require dedicated imaging follow-up. [id number]. COMPARISON: 05/07/2023 FINDINGS: Head: INTRACRANIAL: No acute intracranial hemorrhage. No hydrocephalus. No mass effect or midline shift. Mo derate chronic small vessel ischemic changes.Severe cerebral atrophy. Remote bilateral basal ganglia lacunar infarcts. VASCULATURE: No visualized abnormalities in the arteries or dural venous sinuses. SCALP/SKULL: No calvarial fracture identified. No acute soft tissue abnormality. SINUSES: The visualized paranasal sinuses are mostly clear. No significant mastoid fluid. Cervical spine: ALIGNMENT: The cervical spine has normal alignment without scoliosis or spondylolisthesis. BONE: Vertebral body heights are maintained. No aggressive osseous lesions. DEGENERATIVE: Multilevel cervical spondylosis with evidence of bilateral neural foraminal narrowing. No high grade central spinal stenosis. SOFT TISSUE: No significant abnormalities in the soft tissue of the neck. The visualized lung apices are clear. Pacemaker. Carotid artery calcifications. IMPRESSION: No acute intracranial abnormality. No acute fracture or traumatic malalignment of the cervical spine.
--- NOTE | 2024-12-01 17:45 | RAD REPORT ---
EXAM: Chest Abd Pelvis Wo Con CLINICAL INDICATION: Male, 84 years old PAIN TECHNIQUE: CT chest, abdomen and pelvis was performed, without IV contrast, as per department protoco l. Axial, sagittal and coronal reconstructions were obtained. One or more of the following dose reduction techniques were used: Automated exposure control, adjustment of the mA and/or kV according to the patient size, and/or iterative reconstruction. Unless otherwise specified, incidental findings do not require dedicated imaging follow-up. [id number]. COMPARISON: 03/08/2021 FINDINGS: The lack of intravenous contrast limits the sensitivity of this exam for evaluation of solid visceral organs, vascular structures, and retroperitoneum. ---THORAX--- LOWER NECK AND CHEST WALL: Left thyroid versus parathyroid nodule measuring 2.4 cm is unchanged. LUNGS AND AIRWAYS: Mosaic lung attenuation.Motion artifact limits evaluation for pulmonary nodule det ection. PLEURA: No pleural effusion. No pneumothorax. MEDIASTINUM AND LYMPH NODES: No mediastinal mass or fluid collection. Normal size mediastinal, hilar, and axillary lymph nodes. THORACIC AORTA: No thoracic aortic aneurysm. PULMONARY ARTERIES: Caliber is within normal limits. HEART: Mild cardiomegaly. Severe coronary artery calcifications.No significant pericardial effusion. Aortic valve calcifications. ---ABDOMEN/PELVIS--- UPPER GI: No significant abnormality. LIVER: No significant focal abnormality. GALLBLADDER/BILE DUCTS: No biliary ductal dilatation.? PANCREAS: Atrophy, but otherwise unremarkable. SPLEEN: Moderate splenomegaly. ADRENALS: No adrenal masses. KIDNEYS AND URETERS: No hydronephrosis.Low density and/or too small to characterize renal lesions whi ch are statistically benign.No renal calculi. ABDOMINAL AORTA AND OTHER VESSELS: Normal caliber aorta and IVC. PERITONEUM: Nonspecific free fluid. This has Hounsfield units above that of simple fluid. LYMPH NODES: The mesenteric mass has increased in size measuring 4.8 cm, previously 3.3 cm. ABDOMINAL WALL: Unremarkable SMALL BOWEL/COLON: Small bowel has normal course and caliber. No colonic wall thickening or pericolon ic inflammatory changes. URINARY BLADDER: Underdistended but grossly unremarkable. REPRODUCTIVE ORGANS: No pathologic process. ---COMBINED--- MUSCULOSKELETAL: Multilevel degenerative changes in the spine. No acute fracture. Remote rib fracture s. Acute appearing L4 compression fracture with less than 20% loss of height. There is abnormal lytic appearance of the upper half of the vertebral body which is of uncertain etiology. ADDITIONAL FINDINGS: None. IMPRESSION: High attenuation fluid present within the pelvis which is concerning for hemoperitoneum given history of trauma. No source is identified. An occult mesenteric tear could be the source. Severe splenomegaly is noted but no evidence of perisplenic hematoma. CT of the abdomen and pelvis with IV c ontrast may be helpful. THIS REPORT CONTAINS FINDINGS THAT MAY BE CRITICAL TO PATIENT CARE. The emergent findings were communicated to Dr. Parrish on 12/01/2024 5:41 PM. Acute appearing L4 compression fracture with less than 20% loss of height. The appearance of the uppe r half of the L4 vertebral body is present which is new from prior. The presence of an underlying lesion is not excluded. Could consider nonemergent MRI to better assess.
[2024-12-01 19:04] LABS: Absolute Basophils 0.1 K/uL (0-0.5); Absolute Lymphocytes (CBC) 9.7 K/uL (0.7-4.9); Absolute Monocytes 0.1 K/uL (0.1-1.3); Absolute Neutrophil 1.6 K/uL (1.8-8.0); Basophils % 0.7 % (0-1.3); Eosinophils % 0.2 % (0-4.4); Hematocrit 32.5 % (39.6-49.0); Hemoglobin 10.8 g/dL (13.6-17.9); Lymphocytes % 84.7 % (15.3-44.8); MCH 30.1 pg (27.0-35.0); MCHC 33.3 g/dL (32.0-36.0); MCV 90.5 fL (80-100); MPV 8.3 fL (7.6-11.3); Monocytes % 0.6 % (3.3-12.3); Neutrophils % 13.8 % (41.7-73.7); Nucleated Red Blood Cells % 0.1 % (0-0); Platelets 46 thou/uL (152-406); RBC Red Blood Cell Count 3.59 M/uL (4.33-5.43); Red Cell Distribution Width 16.2 % (12.1-15.2)
[2024-12-01 19:10] LABS: PT Prothrombin Time 13.8 SECONDS (10-13.0); Protime INR 1.22
[2024-12-01] MEDS ORDERED: FAMOTIDINE 20 MG/2 ML VIAL IV ONE (19:16)
[2024-12-01] MEDS ORDERED: NA CHLORIDE 0.9% 500 ML ONE (19:16)
--- NOTE | 2024-12-01 19:18 | ER ---
Nurse's Notes [facility] Name: Mo Millard Age: 84 yrs Sex: Male : 1940 Arrival Date: 12/01/2024 Time: 16:15 Bed 4 Private MD: Diagnosis: Fracture of fourth lumbar vertebra;Hemoperitoneum;Fall on same level, unspecified Presentation: 12/01 16:39 Chief complaint: Patient's son or daughter states: Pt had a fall today. Pt tripped and cm10 fell and has skin tears to left arm. Pt states that he feels weak. No loc at the time of fall. Coronavirus screen: Client denies travel out of the [place] in the last 14 days. Ebola Screen: Patient denies travel to an Ebola-affected area in the 21 days before illness onset. Initial Sepsis Screen: Does the patient meet any 2 criteria? No. Patient's initial sepsis screen is negative. Does the patient have a suspected source of infection? No. Patient's initial sepsis screen is negative. Risk Assessment: Do you want to hurt yourself or someone else? Patient reports no desire to harm self or others. Onset of symptoms was December 01, 2024. 16:39 Method Of Arrival: Wheelchair cm10 16:39 Acuity: PK 3 cm10 Triage Assessment: 16:42 General: Appears in no apparent distress. comfortable, Behavior is calm, cooperative. cm10 Neuro: No deficits noted. Level of Consciousness is awake, alert, obeys commands, Oriented to person, place, time, situation, Appropriate for age. Respiratory: No deficits noted. Airway is patent Respiratory effort is even, unlabored, Respiratory pattern is regular, symmetrical. Historical: - Allergies: 16:41 No Known Allergies; cm10 - PMHx: 16:41 back CA; Hypertensive disorder; Prostate Cancer; Spleen cancer; cm10 - PSHx: 16:41 Coronary artery bypass graft; pacemaker; prostate removed; cm10 - Immunization history:: Adult Immunizations up to date. - Infectious Disease History:: Denies. - Social history:: Smoking status: Patient denies any tobacco usage or history of. Screenin:[facility] ED Fall Risk Assessment (Adult) History of falling in the last 3 months, bp including since admission Yes- single mechanical fall (1 pt) Confusion or Disorientation No (0 pts) Intoxicated or Sedated No (0 pts) Impaired Gait No (0 pts) Mobility Assist Device Used Yes (1 pt) Altered Elimination No (0 pt) Score/Fall Risk Level 0 - 2 = Low Risk Oriented to surroundings. Abuse screen: Denies threats or abuse. Denies injuries from another. Nutritional screening: No deficits noted. Tuberculosis screening: No symptoms or risk factors identified. Assessment: 18:30 General: Appears in no apparent distress. comfortable, Behavior is calm, cooperative, bp appropriate for age. 18:30 Pain: Complains of pain in left arm. bp 20:14 General: Report called to ER. Driss ALLEN took the report. PT is aware of transfer.. kd3 Neuro: Level of Consciousness is awake, alert, obeys commands, Oriented to person, place, time, situation. Cardiovascular: Patient's skin is warm and dry. Respiratory: Airway is patent Trachea midline Respiratory effort is even, unlabored, Respiratory pattern is regular, symmetrical. Vital Signs: 16:39 BP 114 / 72; Pulse 85; Resp 15; Temp 97.5; Pulse Ox 99% on R/A; Weight 77.11 kg; Height cm10 5 ft. 9 in. ; Pain 8/10; 19:03 BP 140 / 73; Pulse 73; Resp 15; Pulse Ox 98% ; bp 20:15 BP 146 / 76; Pulse 89; Resp 18 S; Pulse Ox 99% on R/A; kd3 20:47 BP 140 / 78; Pulse 79; Resp 18; Pulse Ox 97% on R/A; kd3 16:39 Body Mass Index 25.10 (77.11 kg, 175.26 cm) cm10 16:39 Pain Scale: Adult cm10 ED Course: 16:19 Patient arrived in ED. cj3 16:37 Jamar Parrish MD is Attending Physician. destinee 16:41 Triage completed. cm10 16:41 Arm band placed on right wrist. Patient placed in waiting room. cm10 16:55 XRAY Chest (1 view) In Process Unspecified. EDMS 17:15 Chest Abd Pelvis Wo Con In Process Unspecified. EDMS 17:15 Head C Spine Mpr Wo Con In Process Unspecified. EDMS 18:30 Attending Physician role handed off by Jamar Parrish MD ci 18:30 Hola Lugo is Attending Physician. ci 18:30 Patient has correct armband on for positive identification. bp 18:42 Morris Ye, RN is Primary Nurse. bp 18:56 Initial lab(s) drawn, by me, sent to lab. Inserted saline lock: 22 gauge in right bp antecubital area, using aseptic technique. Blood collected. Flushed with 10 mL NS. 19:22 CT Abdomen - Angio In Process Unspecified. EDMS 20:48 Provided Education on: need for transfer . kd3 20:48 No provider procedures requiring assistance completed. Patient transferred, IV remains kd3 in place. Administered Medications: 19:36 Drug: NS 0.9% IV 500 ml 500 ml IV at 1 bolus once; to be given as a bolus over 30 kd3 minutes Volume: 500 ml; Route: IV; Rate: 1 bolus; Site: right antecubital; 20:15 Follow up: IV Status: Completed infusion; IV Intake: 500ml kd3 19:37 Drug: Famotidine IVP 20 mg IVP once; dilute with 10 mL 0.9% NaCl; give over 2 minutes kd3 Route: IVP; Site: right antecubital; 20:15 Follow up: Response: No adverse reaction kd3 Medication: 20:15 VIS not applicable for this client. kd3 Intake: 20:15 IV: 500ml; Total: 500ml. kd3 Outcome: 19:17 ER care complete, transfer ordered by . ci 20:48 Transferred by ground EMS to [facility], kd3 20:48 Condition: stable 20:48 Patient left the ED. kd3 Signatures: Dispatcher [employer] EDUT Jamar Parrish MD MD cha Peltier, Brian, RN RN Mechelle Cota RN RN kd3 Lucy Luu, RN RN cm10 IheonunekwuHola Celeste 3
--- NOTE | 2024-12-01 19:18 | EDPHYS ---
Physician Documentation [facility] Name: Mo Millard Age: 84 yrs Sex: Male : 1940 Arrival Date: 12/01/2024 Time: 16:15 Bed 4 Private MD: ED Physician Hola Lugo HPI: 12/01 18:46 This 84 yrs old Male presents to ER via Wheelchair with complaints of General Weakness, ci Fall Injury, Arm Injury, Abdominal Pain. 18:46 Patient is an 84-year-old male with PMH hypertension, prostate CA, spleen cancer who ci presents to the ED with chief complaint of generalized weakness left arm injury, abdominal pain, and fall. Patient's son reports patient tripped and fell, positive head strike, no LOC, not on blood thinners. Patient saw PCP today and was altered and was told to come to the ER.. Historical: - Allergies: 16:41 No Known Allergies; cm10 - PMHx: 16:41 back CA; Hypertensive disorder; Prostate Cancer; Spleen cancer; cm10 - PSHx: 16:41 Coronary artery bypass graft; pacemaker; prostate removed; cm10 - Immunization history:: Adult Immunizations up to date. - Infectious Disease History:: Denies. - Social history:: Smoking status: Patient denies any tobacco usage or history of. ROS: 18:46 Constitutional: Negative for fever, chills, and weight loss, Cardiovascular: Negative ci for chest pain, palpitations, and edema, Respiratory: Negative for shortness of breath, cough, wheezing, and pleuritic chest pain, 18:46 Constitutional: Positive for fatigue, 18:46 Abdomen/GI: Positive for abdominal pain, 18:46 Neuro: Positive for altered mental status, Exam: 18:46 Constitutional: This is a well developed, well nourished patient who is awake, alert, ci and in no acute distress. Vital Signs: 16:39 BP 114 / 72; Pulse 85; Resp 15; Temp 97.5; Pulse Ox 99% on R/A; Weight 77.11 kg; Height cm10 5 ft. 9 in. ; Pain 8/10; 19:03 BP 140 / 73; Pulse 73; Resp 15; Pulse Ox 98% ; bp 20:15 BP 146 / 76; Pulse 89; Resp 18 S; Pulse Ox 99% on R/A; kd3 20:47 BP 140 / 78; Pulse 79; Resp 18; Pulse Ox 97% on R/A; kd3 16:39 Body Mass Index 25.10 (77.11 kg, 175.26 cm) cm10 16:39 Pain Scale: Adult cm10 MDM: 16:37 Medical Screening Exam initiated destinee 19:17 Differential diagnosis: abrasion, closed head injury, contusion, fracture, laceration, ci Retroperitoneal bleed,. Data reviewed: vital signs, nurses notes. ED course: Patient found to have hemoperitoneum and an acute L4 fracture. Transfer initiated to trauma facility. Currently hemodynamically stable. Will obtain CTA rule out active extravasation. All labs pending at this time.. 19:53 ED course: Patient accepted by Dr. Mckoy. 12/01 16:38 Order name: Basic Metabolic Panel; Complete Time: 19:41 [facility] 12/01 16:38 Order name: CBC with Diff [facility] 12/01 19:42 Interpretation: Abnormal: HGB 10.8. 12/01 16:38 Order name: LFT's; Complete Time: 19:41 [facility] 12/01 16:38 Order name: Magnesium; Complete Time: 19:41 [facility] 12/01 16:38 Order name: NT PRO-BNP; Complete Time: 19:41 [facility] 12/01 19:43 Interpretation: Abnormal: NT PRO-BNP 1461. 12/01 16:38 Order name: PT-INR; Complete Time: 19:14 [facility] 12/01 16:38 Order name: Troponin HS; Complete Time: 19:41 [facility] 12/01 16:38 Order name: Lipase; Complete Time: 19:41 [facility] 12/01 20:27 Order name: CBC Smear Scan [facility] 12/01 16:38 Order name: XRAY Chest (1 view); Complete Time: 18:23 [facility] 12/01 18:52 Interpretation: No acute disease. ci 12/01 16:43 Order name: Chest Abd Pelvis Wo Con; Complete Time: 18:23 [facility] 12/01 18:53 Interpretation: Abnormal: hemoperitenoum, L4 fracture. ci 12/01 16:44 Order name: Head C Spine Mpr Wo Con; Complete Time: 18:23 [facility] 12/01 18:54 Interpretation: No acute disease. 12/01 18:55 Order name: CT Abdomen - Angio; Complete Time: 19:52 ci 12/01 16:38 Order name: Cardiac monitoring; Complete Time: 18:56 destinee 12/01 16:38 Order name: EKG - Nurse/Tech; Complete Time: 19:02 destinee 12/01 16:38 Order name: IV Saline Lock; Complete Time: 18:56 destinee 12/01 16:38 Order name: Labs collected and sent; Complete Time: 18:56 destinee 12/01 16:38 Order name: O2 Per Protocol; Complete Time: 18:56 destinee 12/01 16:38 Order name: O2 Sat Monitoring; Complete Time: 18:56 destinee 12/01 18:31 Order name: IV Saline Lock - Large Bore; Complete Time: 18:56 [facility] Administered Medications: 19:36 Drug: NS 0.9% IV 500 ml 500 ml IV at 1 bolus once; to be given as a bolus over 30 kd3 minutes Volume: 500 ml; Route: IV; Rate: 1 bolus; Site: right antecubital; 20:15 Follow up: IV Status: Completed infusion; IV Intake: 500ml kd3 19:37 Drug: Famotidine IVP 20 mg IVP once; dilute with 10 mL 0.9% NaCl; give over 2 minutes kd3 Route: IVP; Site: right antecubital; 20:15 Follow up: Response: No adverse reaction kd3 Disposition Summary: 12/01/24 19:17 Transfer Ordered Notes: Transfer Location: [facility] ci Reason: Higher level of care ci Condition: Serious ci Problem: new ci Symptoms: are unchanged ci Accepting Physician: Ean(12/01/24 20:48) kd3 Diagnosis - Fracture of fourth lumbar vertebra ci - Hemoperitoneum ci - Fall on same level, unspecified ci Forms: - Medication Reconciliation Form ci - SBAR form ci Signatures: Dispatcher [employer] EDMS Jamar Parrish MD MD cha Doucette, Kyli RN RN kd3 Lucy Luu RN RN cm10 Hola Lugo ci Corrections: (The following items were deleted from the chart) 16:39 16:38 BASIC METABOLIC PANEL+C.LAB.BRZ ordered. EDMS EDMS 16:39 16:39 CBC+H.LAB.BRZ ordered. EDMS EDMS 16:39 16:39 HEPATIC FUNCTION+C.LAB.BRZ ordered. EDMS EDMS 16:39 16:39 MAGNESIUM+C.LAB.BRZ ordered. EDMS EDMS 16:39 16:39 PROBNP+C.LAB.BRZ ordered. EDMS EDMS 16:39 16:39 PROTIME (+INR)+COAG.LAB.BRZ ordered. EDMS EDMS 16:39 16:39 Troponin High Sensitivity+C.LAB.BRZ ordered. EDMS EDMS 16:39 16:39 LIPASE+C.LAB.BRZ ordered. EDMS EDMS 16:39 16:39 Urinalysis+U.LAB.BRZ ordered. EDMS EDMS 16:39 16:39 Chest Single View+RAD.RAD.BRZ ordered. EDMS EDMS 16:39 16:39 Head C Spine Cap Wo Con+CT.RAD.BRZ ordered. EDMS EDMS 18:31 18:31 TYPE AND SCREEN+BB.LAB.BRZ ordered. EDMS EDMS 19:53 19:17 Pending ci ci 20:48 19:53 Ean ci kd3
[2024-12-01 19:23] LABS: Albumin 3.1 g/dL (3.4-5.0); Albumin/Globulin Ratio 0.8 (1.1-1.8); Anion Gap 8.8 mEq/L (5.0-15.0); Bilirubin Direct 0.3 mg/dL (0-0.2); Bilirubin Indirect, Calculated 0.5 mg/dL (0.2-0.8); Bilirubin Total 0.8 mg/dL (0.2-1.0); Globulin 3.7 g/dL (2.3-3.5); Magnesium 2.2 mg/dL (1.6-2.4); Potassium 3.8 mEq/L (3.5-5.1); Protein, Total 6.8 g/dL (6.4-8.2); Troponin High Sensitivity 7.1 pg/mL (<58.9)
--- NOTE | 2024-12-01 19:50 | RAD REPORT ---
EXAMINATION: Abdomen Angio CLINICAL INDICATION: Male, 84 years old.GI BLEED TECHNIQUE: CTA abdomen was performed, after the administration of IV contrast, as per department prot ocol. MIPS were created. Axial, sagittal and coronal reconstructions were obtained. One or more of the following dose reduction techniques were used: Automated exposure control, adjustment of the mA a nd/or kV according to patient size, and/or iterative reconstruction. Unless otherwise specified, incidental findings do not require dedicated imaging follow-up. [id number]. COMPARISON: CT earlier in day FINDINGS: LOWER CHEST: No significant change from prior. Cardiomegaly. Coronary calcifications. Aortic valve ca lcifications. Pacemaker. UPPER GI: No significant abnormality. LIVER: No significant focal abnormality. GALLBLADDER/BILE DUCTS: No biliary ductal dilatation.? PANCREAS: No mass, ductal dilation, or nevaeh-pancreatic fluid. SPLEEN: Severe splenomegaly with the spleen measuring 18.1 cm in CC dimension. No perisplenic hematom a identified. ADRENALS: No adrenal masses. KIDNEYS AND URETERS: No hydronephrosis.Low density and/or too small to characterize renal lesions whi ch are statistically benign.No renal calculi. ABDOMINAL AORTA AND OTHER VESSELS: Moderate atherosclerotic changes without aortic aneurysm. PERITONEUM: Similar volume of the intermediate attenuation fluid in the pelvis. No source of bleeding identified. LYMPH NODES: Mesenteric mass as noted on the CT from earlier in the day has increased in size compare d with 2023. ABDOMINAL WALL: Small fat containing umbilical hernia. SMALL BOWEL/COLON: Small bowel has normal course and caliber. No colonic wall thickening or pericolon ic inflammatory changes. URINARY BLADDER: Only partially imaged. MUSCULOSKELETAL: Multilevel degenerative changes in the spine. No acute fracture. Remote rib fracture s. Acute appearing L4 compression fracture with less than 20% loss of height. There is abnormal lytic appearance of the upper half of the vertebral body which is of uncertain etiology ADDITIONAL FINDINGS: None. IMPRESSION: High attenuation pelvic free fluid which is hemoperitoneum until proven otherwise but no source of bl eeding is seen. The volume of fluid is unchanged compared with 2 hours prior.
[2024-12-01 20:26] LABS: Platelet Estimate DECR; White Blood Cell Scan OK (OK)
[2024-12-01 20:27] LABS: Blood Morphology Comment NOT SEEN (NOT SEEN)
[2024-12-01 21:07] VITALS: TEMP 97.5
[2024-12-01 21:10] VITALS: BP 140/78; O2SAT 97
--- NOTE | 2024-12-02 12:33 | EKG ---
Test Date: 2024-12-01 Test Time: 19:06:43 Aircraft Time Clerk: TM MEASUREMENT RESULTS: Intervals: Rate: 90 SC: QRSD: 156 QT: 466 QTc: 570 [place]: P: 181 SC: QRS: 85 T: 263 INTERPRETIVE STATEMENTS: Poor data quality, interpretation may be adversely affected Demand pacemaker, interpretation is based on intrinsic rhythm Undetermined rhythm Nonspecific intraventricular block Abnormal ECG Compared to ECG 11/16/2023 07:05:51 Ventricular premature complex(es) no longer present Electronically Signed On 12-02-24 12:32:05 CDT by Luis F Small
== END 2024-12-01 20:48 | disposition short-term general hospital (02) ==
LOC: ER 16:15
DX: S32.049A Unspecified fracture of fourth lumbar vertebra, initial encounter for closed fracture (principal); K66.1 Hemoperitoneum; W18.00XA Striking against unspecified object with subsequent fall, initial encounter; I10 Essential (primary) hypertension; Z85.46 Personal history of malignant neoplasm of prostate; Z85.89 Personal history of malignant neoplasm of other organs and systems; Z95.1 Presence of aortocoronary bypass graft; Z95.0 Presence of cardiac pacemaker
CPT/HCPCS: 96361; 93005; 85025; 80048; 36415; 83735; 85610; 80076; 84484; 83690; 83880; 70450; 71250; 72125; 74175; 74176; 71045; 96374; 99285; Q9967; J7040

== ENCOUNTER 2024-12-05 15:51 | Inpatient (IN) | payer OTHER, MEDICARE ==
[2024-12-06 00:08] VITALS: BMI 25.8
[2024-12-06 00:57] LABS: Specific Gravity 1.014 (1.005-1.030); Sqamous Epithelial <5 /HPF (None Seen); Urine Bacteria None Seen /HPF (<20); Urine Bilirubin NEGATIVE (Negative); Urine Blood Negative (Negative); Urine Clarity Clear (Clear); Urine Color Light-Yellow (Yellow); Urine Culture Reflex Order NOT NEEDED; Urine Glucose NEGATIVE (Negative); Urine Ketones NEGATIVE (Negative); Urine Micro Reflex YN NO BILL MICROSCOPIC; Urine Mucus Slight /HPF (None Seen); Urine Nitrite NEGATIVE (Negative); Urine Protein NEGATIVE (Negative); Urine RBC None Seen /HPF (None Seen); Urine Urobilinogen Normal (Normal); Urine WBC <5 /HPF (<5); Urine pH 5.5 (5.0-7.0)
[2024-12-06 06:09] LABS: Absolute Monocytes 0.1 K/uL (0.1-1.3); Absolute Neutrophil 1.2 K/uL (1.8-8.0); Basophils % 0.3 % (0-1.3); Eosinophils % 0.4 % (0-4.4); Hematocrit 29.8 % (39.6-49.0); Hemoglobin 9.9 g/dL (13.6-17.9); Lymphocytes % 88.3 % (15.3-44.8); MCH 29.7 pg (27.0-35.0); MCHC 33.1 g/dL (32.0-36.0); MCV 89.6 fL (80-100); MPV 8.1 fL (7.6-11.3); Monocytes % 0.5 % (3.3-12.3); Neutrophils % 10.5 % (41.7-73.7); Nucleated Red Blood Cells % 0.2 % (0-0); Platelets 46 thou/uL (152-406); RBC Red Blood Cell Count 3.33 M/uL (4.33-5.43); Red Cell Distribution Width 15.9 % (12.1-15.2)
[2024-12-06 06:55] LABS: Albumin 2.7 g/dL (3.4-5.0); Anion Gap 7.7 mEq/L (5.0-15.0); Magnesium 2.6 mg/dL (1.6-2.4); Potassium 3.7 mEq/L (3.5-5.1); Prealbumin 12.9 mg/dL (20-40)
[2024-12-06 07:56] LABS: Blood Morphology Comment NOT SEEN (NOT SEEN); Platelet Estimate DECR; White Blood Cell Scan OK (OK)
[2024-12-06] MEDS: METOPROLOL XL 25 MG TAB PO SCH (08:41)
[2024-12-06] MEDS: AMIODARONE HCL 200 MG TAB PO SCH (08:41)
[2024-12-06] MEDS: VITAMIN D 400 UNIT TAB PO SCH (08:41)
[2024-12-06] MEDS: APIXABAN 2.5 MG TABLET PO SCH (08:42)
[2024-12-06] MEDS: ACETAMINOPHEN 500 MG TAB PO PRN (08:51)
[2024-12-06] MEDS: DOCUSATE NA/SENNA CONC 1 TAB PO PRN (19:20)
--- NOTE | 2024-12-06 22:11 | HP ---
Date of Admission: 12/06/2024 Time Of Service: 6:00 p.m. Chief Complaint: "I fell and broke my back." History Of Present Illness: Mr. Millard is an 84-year-old patient with lymphoma; prostate cancer; co ronary artery bypass disease, status post coronary artery bypass grafting; hypertension, who lives al one and is independent, ambulating with a cane, taking care of his own activities of daily living and being very active. 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 He was typically mobilizing as noted with a cane. Did have chronic lower extremity weakness from likely his lymphoma and other fac tors and had been falling more recently. 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 Family noted that he apparently became more drowsy and he fell again on the 01 of December. He hit his head and was brought to the emergency department. His evaluation showed an L4 compression fracture and hemoperitoneum. Also, bruising on the left forearm. He was sent to [facility] for higher level of care where Neurosurg leila evaluated the patient. They determined that this fracture was nonoperable and was placed on LSO brace while out of bed with spinal precautions. In addition, he had pain medications adjusted. He d id have a skin tear in the left upper forearm and it was treated with wound care and dressed to preve nt infection. He did require continuous monitoring to evaluate leukocytosis. The patient does have splenomegaly related to lymphoma and of course, he was evaluated by the therapy service. He was foun d to be significantly below his baseline level of functioning, requiring maximum assistance for bed m obilization due to spinal precautions, moderate assistance for transferring to toilet, for bathing; m oderate assistance of upper body dressing; maximum assistance for lower body dressing; moderate alexa tance for ambulating around the room with a rolling walker. Did require bladder drain and had moment s of incontinence. He was therefore felt to be a good candidate for aggressive inpatient rehabilitat ion, was therefore admitted to unit for physical and occupational therapy. Rehabilitation is best in inpatient unit as if he is at home or in jail, he is likely to worsen and not thrive. Re habilitation will help him return to his prior level of functioning and reduce his risk of rehospital ization. Past Medical History: As noted. Allergies: NO KNOWN DRUG ALLERGIES. Medications: Tylenol 500 mg every 4 hours as needed, Marathon 5/325 every 6 hours as needed, amiodarone 200 mg daily, Eliquis 2.5 mg twice daily, Vitamin D 400 units daily, milk of magnesia 30 mL daily as needed for constipation, Toprol-XL 25 mg daily, Senokot S 2 at bedtime. Laboratory Studies: White blood cell count 11.4 with 88.3% lymphocytes, which is consistent with his lymphoma; hemoglobin of 9.9; platelets are 46. Sodium 136, potassium 3.7, chloride 104, carbon diox chris 28, BUN 16, creatinine 0.64, glucose 89, calcium 8.4. Magnesium 2.6. Albumin 2.7, prealbumin 12 .9. His urinalysis shows 25 esterase, otherwise unremarkable. Serum scan is negative. X-ray/imaging: X-ray of his lumbar spine on 12/02 shows compression fracture of L4 with interval wor sening of height loss compared to recent CT scan that was 70% loss compared to 25% in the prior scan. Chest x-ray on 12/02 shows scattered subsegmental atelectasis, possible trace pleural effusion, and large cardiomediastinal silhouette. Brain CT scan on 12/01 shows no acute abnormalities, chronic br ain parenchymal volume loss, microvascular ischemic change. Age indeterminate lacunar infarct in the bilateral basal ganglia. Cervical spine CT scan on 12/01 shows no cervical spine fracture or malali gnment. Generalized osteopenia. A CT angiogram of the abdomen and pelvis on 12/02 shows limited richard luation of visceral organ injury due to phase of contrast to small volume hemoperitoneum in the pelvi s noted. There is splenomegaly measuring 18 cm in length. There is acute compression fracture of L4 vertebral body with approximately 30% height loss and there is a 0.3 cm bony retropulsion. There is central lucency within the vertebral bodies suggests pathologic fracture. There is also indetermina te soft tissue density within the mid mesenteric area measuring 4.5 cm. X-ray of the tibia shows gen eralized soft tissue swelling of the medial lower leg without acute bony abnormalities. Review of Systems: He denies any significant fevers, chills, nausea, vomiting, myalgias, arthralgias, rash. No psychiat bobo issues, genitourinary issues. He is sleeping well. Bowel movements are okay. Pain is well elvis ged. No active issues. Family History: Noncontributory. Past Surgical History: Coronary artery bypass grafting as noted. Current Level Of Functioning: Currently, setup assistance for grooming. Bathing is moderate assist ance. Upper body dressing, moderate assistance. Lower body dressing, maximal assistance. Toileting , moderate assistance. Wheelchair to bed and toilet transfers, moderate assistance. Ambulation 25 f eet with moderate assistance. Physical Examination: Vital Signs: Blood pressure is 144/80, pulse 85, respiratory rate of 16, temperature 97.4, oxygen sa turation 91%. Weight 170 pounds, height 5 feet, BMI 25.8. General: Mr. Millard is resting comfortably in bed, watching television. He is in no acute distress . HEENT: He is normocephalic, atraumatic. Sclerae anicteric. Oropharynx pink and moist. Neck: Supple. Extremities: His left arm is well bandaged and has good hemostasis. Neurologic: He has no focal neurological deficits. Mild diffuse weakness of upper and lower extremi ties proximally and distally. Decreased in stocking-glove loss, light touch temperature in arms and legs. Depressed reflexes. Rehab And Medical Assessment And Plan: Mr. Millard is an 84-year-old patient in rehabilitation unit with impairment category 09, other orthopedic. Impairment group code is 08.9 other orthopedic. Etio logic diagnosis, L4 compression fracture. His comorbidities include decreased mobility, decreased ph ysical functioning, risk of deep vein thrombus, hypertension, constipation, insomnia, lymphoma. Plan: He will have physical and occupational therapy 3 hours a day, 5 of 7 days. For his hypertensi on, amiodarone 200 mg daily. We will hold if systolic blood pressure is less than 120. For constipa tion, he has Senokot S and milk of magnesia on board. For heart rate control and blood pressure cont rol, Toprol-XL 25 mg daily. Vitamin D on board for supplementation, Eliquis 2.5 mg twice daily for D VT prophylaxis. Pain is managed by Tylenol 500 mg every 4 hours and Marathon 5/325 every 6 hours as nee ded for severe pain. Comorbidities That Are Impacting Rehabilitation: He does have the history of lymphoma that is curren tly stable. White blood cell count is in good shape. He is at of course increased risk of infection and strong precautions to be adhered to. Did have a history of flesh eating bacteria, but he has ov ercome that. In addition, he has significant instability with poor balance, coordination, likely rel ated to a neuropathy and fall precautions to be strongly adhered to during all therapy sessions. Rehab Specific Plan: Mr. Millard will have physical and occupational therapy 3 hours a day, 5 of 7 d ays to improve his ability to transfer from bed to chair, to toilet, to shower, to dress upper and lo wer body, to don and doff footwear and to manage all his activities of daily living properly. In add ition to make safe decisions as he is transferring in terms of safety awareness. If need be, Speech will work with him 0.5 hours, 5 of 7 days. Mr. Millard has a good understanding of the process of admission to the inpatient rehabilitation unit , how he will benefit from physical and occupational therapy. He will have 24 hours a day, 7 days a week skilled rehabilitation nursing, daily physician evaluation and management, and foster care social worker e valuation and management for discharge planning, home equipment, and to continue therapy after discha rge. If need be, additional help will be sought from the hospitalist. He sees Dr. Lei. He may be consulted as needed. Barriers To Discharge: Currently, the risk of infection is there given his lymphoma and strong preca utions to be adhered to if need be. He, however, should be doing very well and no limitations regard ing his discharge. He will be able to go back home and continue therapy via Home Health. Length Of Stay: About 10 days. Disposition: Expected to be home and continue therapy via Home Health. Prognosis: Good. Code Status: Full code. Rehab Specific Goals: 1. Become independent with upper and lower body dressing and donning and doffing footwear. 2. Independently mobilize a wheelchair 250 feet and a rolling walker 250 feet and going up and down 1 0 steps with bilateral handrails. 3. Independently perform all cognitive functioning and safety awareness issues should be addressed in dependently. The above goals were reviewed with Mr. Millard. He is in agreement. It is noted that he should follow a spinal precautions. He will have TLSO brace when out of bed and when in bed may be off the brace. His left arm bandage and area will be addressed with dressing woo ges as appropriate. By signing this document, I acknowledge I personally performed a full physical examination on later than 24 hours after his admission to the inpatient rehabilitation unit and determined that he is able to tolerate the above course of treatment at an intensive level or reasonable period of t shavon. A detailed individualized plan of care for him will be completed by hospital day 4 based on the preadmission screen, history and physical and therapy evaluations. CHUY Voice ID: [id number]
--- NOTE | 2024-12-07 07:25 | RAD REPORT ---
Procedure: Chest Single View HISTORY: Cough COMPARISON: December 01, 2024 FINDINGS: The lungs appear clear of acute infiltrate. No significant pleural effusion noted. The heart is moderately enlarged. Pacemaker leads in place. IMPRESSION: No acute abnormality is displayed.
[2024-12-07] MEDS: BENZONATATE 100 MG CAP PO SCH (07:53)
[2024-12-07] MEDS: HYDROCODONE/APAP 5/325 MG TAB PO PRN (16:24)
[2024-12-07] MEDS: NA CHLORIDE 0.9% 1,000 ML IV SCH (17:14)
[2024-12-07] MEDS: guaiFENesin 100 MG/5 ML UCUP PO PRN (19:43)
[2024-12-07] MEDS: TRAZODONE 50 MG TABLET PO SCH (19:44)
[2024-12-07] MEDS: MELATONIN 3 MG TABLET PO SCH (19:44)
--- NOTE | 2024-12-07 23:52 | PN ---
Subjective: Mr. Millard is resting comfortably in bed, happy with his therapy so far. Has no new co mplaints. He is able to wear the TLSO brace with mobilization. Review of Systems: No fevers, chills, nausea, vomiting. No significant myalgias, arthralgias, headache, weight change, or other complaints. Physical Examination: Vital Signs: Blood pressure 135/77, pulse 86, respiratory rate 18, temperature 97.6, oxygen saturati on 93% on room air. Weight 170 pounds, height 5 feet 8 inches, BMI 25.8. General: Mr. Millard is resting comfortably. He is in no significant distress. HEENT: Appears normocephalic, atraumatic. Sclerae anicteric. Oropharynx pink and moist. Neck: Supple. Chest: Clear. Heart: Regular. Laboratory Studies: White blood cell count is 11.4. He has a neutrophils 10.5, lymphocytes 88.3, he moglobin 9.9. His basic metabolic panel normal sodium, potassium, chloride, BUN 16, creatinine 0.64, glucose ranged from 89 to 99, calcium 8.4. Magnesium 2.6. Albumin 2.7, prealbumin 12.9. Urinalysi s, 25 esterase, otherwise unremarkable. X-ray/imaging: Chest x-ray was done earlier today after the patient had a possibility of some coughi ng, choking. Had a chest x-ray showed no acute abnormalities. Heart moderately enlarged in size. L ungs are clear of acute infiltrate. Medications: Tylenol 500 mg every 4 hours as needed, Rutherford 5/325 every 6 hours as needed, amiodarone 200 mg daily, Eliquis 2.5 mg twice daily, Tessalon Perles for his cough 100 mg daily, Vitamin D 400 units daily, Robitussin 100 mg every 4 hours as needed, lidocaine patch apply topically to the lower back where he has the compression fracture, melatonin 3 mg at bedtime, milk of magnesia 30 mL daily a s needed for constipation, Toprol 25 mg daily, Senokot S 2 at bedtime. He is receiving some IV fluid s after having some issues with hydration. He has trazodone 50 mg at bedtime for insomnia. Progress Made With Physical, Occupational, And Speech Therapy: Today with physical therapy, he did g ait training 80 feet twice with minimal assistance using a rolling walker. He was able to go up and down 10 steps with minimal assistance to moderate assistance. Mobilized wheelchair 100 feet with con tact guard assistance. With his occupational therapy, he performed showering with moderate assistanc e; washing, reaching, and drying buttocks on both feet, but was limited by fatigue and spinal precaut ions. Moderate to minimum assistance for showering and toilet transfers. Did have multiple wounds n oted, covered with bandages and did need some rest breaks during the session. He did work with [facility] pathology today and had long-term goals set for him to become independent with his self-care, orien tation, and performance of his activities of daily living along with medication management. Assessment: Mr. Millard is an 84-year-old patient in rehabilitation unit with L4 compression fractur e from which he has some moderate pain as he is mobilizing. He still has decreased mobility, decreas ed physical functioning, hypertension, constipation, insomnia, and a cough with clear chest x-ray. Plan: We will continue with physical, occupational, and speech therapy 3.5 hours, 5 of 7 days. Cont inue Eliquis for DVT prophylaxis, Cordarone for blood pressure control, Rutherford and Tylenol for pain, g uaifenesin for cough, Tessalon Perle for loosening upper airway congestion, Senokot for constipation. He has sodium chloride on board 1 L to help with increasing his urine output and have him to reduce risk of urinary tract infection. In terms of comorbid impacting rehabilitation, he is doing well. The back brace is on when he is ambulating and is not negatively impacting his ability to do well wit h his therapy. LB/MODL Voice ID: [id number] Report ID: [id number]
[2024-12-08] MEDS: TRAZODONE 50 MG TABLET PO PRN (01:03)
[2024-12-08] MEDS: LIDOCAINE 4% PATCH TOP SCH (09:25)
--- NOTE | 2024-12-08 11:02 | EKG ---
Test Date: 2024-12-01 Test Time: 19:07:31 [facility] Clerk: TM MEASUREMENT RESULTS: Intervals: Rate: 89 LA: QRSD: 150 QT: 436 QTc: 530 [place]: P: LA: QRS: 86 T: 233 INTERPRETIVE STATEMENTS: Poor data quality, interpretation may be adversely affected Demand pacemaker, interpretation is based on intrinsic rhythm Undetermined rhythm Left bundle branch block Abnormal ECG Compared to ECG 12/01/2024 19:06:43 Left bundle-branch block now present Electronically Signed On 12-08-24 10:56:40 CDT by Luis F Small
[2024-12-08] MEDS: TRAZODONE 50 MG TABLET PO ONE (19:33)
[2024-12-08] MEDS: TRAZODONE 50 MG TABLET PO SCH (19:33)
--- NOTE | 2024-12-08 21:54 | PN ---
Date of Progress Note: 12/08/2024 Time Of Service: 1:10 p.m. Subjective: Mr. Millard is sitting beside his bed. He does report some difficulty with sleeping at night. Nursing staff noted he was up around 3 and actually apparently every 2 hours and when awake, wanted to be out of bed and was not very happy as he was asked to remain in bed. He did receive traz odone 50 mg initially, another 50 mg, which did help him to sleep. The medication doses will be adju sted to 100 mg at night to begin with. He did have a reaction of hallucination while trying melatoni n, that will not be added. Review of Systems: Apparently some improved pain in the back with pain patches in place. He reports no new complaints. Mild myalgias, arthralgias. No rash. No active issues. The patient's physician, Dr. Lei, did speak with the patient's son and they were concerned that he may be depressed and anxious and perhaps would want the psychiatrist to be involved and so a consultation was placed to Dr. Rudy Cotton for him to evaluate the patient at convenience. Physical Examination: Vital Signs: Blood pressure is 128/72, pulse is 86, respiratory rate 18, temperature 97.6, oxygen sa turation 94%. Weight 170 pounds, height 5 feet 8 inches. General: Mr. Millard is sitting on a chair beside bed. HEENT: He appears normocephalic, atraumatic. Sclerae anicteric. Oropharynx pink and moist. Neck: Supple. Chest: Clear. Back: Does have the back brace in place and has TLSO when the patient is out of bed. Laboratory Studies: No new laboratory studies. X-ray/imaging: No new x-rays or imaging. Medications: He does have a trazodone now 100 mg as noted. He has Ensure Enlive 237 mL scheduled d aily for malnutrition. Otherwise, lidocaine patch placed on the back where he has L4 compression fra cture. Progress Made With Physical, Occupational, And Speech Therapy: With physical therapy today, he did a mbulate 100 feet with a rolling walker with minimal assistance, needed 2 short breaks. Also, he mobi lized wheelchair 80 feet twice and then 60 feet 3 times with contact guard standby assistance. He di d gait training for 80 feet and 70 feet with minimal assistance using a rolling walker. He is able t o go up 3 steps and down 2 steps and then needed seated rest break. With occupational therapy, moder ate assistance for bed mobilization, supine to sit at edge of bed, and bed to wheelchair transfer and rolling walker did so with minimum assistance. With speech, he attempted to recall 3 unrelated pict ures after 3 minutes, but could only recall 1. He did improve organizational thinking. He is able t o name 7 members of a concrete category, but required moderate to maximum verbal cues. Assessment: Mr. Millard is an 84-year-old patient in the rehabilitation unit with L4 compression fra cture. He has [id number] cognitive impairment, decreased mobility, decreased physical function ing, some difficulty with sleep at night. Some anxiety, depression, insomnia. Has constipation, hyp ertension, and has mild malnutrition and cough has improved. Plan: We will continue with physical, occupational, and speech therapy 3.5 hours, 5 of 7 days. Mayi arabella Reeves on board for cough, Eliquis 2.5 mg twice daily for DVT prophylaxis, amiodarone 200 mg marco a ly for his hypertension, lidocaine patch to the back. He has milk of magnesia along with Senokot S a nd Ensure Enlive again for malnutrition. Comorbidities That Are Impacting Rehabilitation: The patient did appear to have some mild sundowning at night, moderate cognitive impairment. His trazodone will be increased in dosage to 100 mg and saxena ve been added [address] Cotton, psychiatrist, is consulted and if the available, will evaluate the patient for anxiety, depression, and his advice and recommendations on medication changes if need be. ARNIE/HAILEY Voice ID: [id number] Report ID: [id number]
[2024-12-09] MEDS: ENSURE ENLIVE 237 ML CAN PO SCH (08:00)
--- NOTE | 2024-12-09 18:02 | RAD REPORT ---
EXAMINATION: ONE VIEW CHEST XR CLINICAL INDICATION: Male, 84 years old.,complaints of SOB, dizziness TECHNIQUE: Frontal chest projection is submitted. Examination is limited by patient positioning and t echnique. COMPARISON: 12/07/2024 FINDINGS: The lungs are well inflated and clear apart from stable chronic interstitial changes with volume loss . No pneumothorax or sizable effusion. The heart is normal in size. Mediastinal contours are unchanged with left chest wall pacer in place. IMPRESSION: No acute intrathoracic abnormalities.
[2024-12-09] MEDS: CIPROFLOXACIN HCL 500 MG TAB PO SCH (19:59)
[2024-12-09] MEDS: TRAZODONE 50 MG TABLET PO SCH (20:00)
--- NOTE | 2024-12-09 22:39 | PN ---
Subjective: Mr. Millard said last night he did not sleep as good as he could and seemed to be somewh at more slow to respond and mildly confused today. A urinalysis did show E coli and cultures greater than 100,000 colony-forming units and it was cee sensitive. Today, he will be started on ciprofloxa suze 500 mg twice daily. A chest x-ray was done today. The study showed no evidence of any acute car diopulmonary abnormalities, specifically no evidence of pneumonia. Review of Systems: He reports mild shortness of breath. He said he has some difficulty with his breathing. His oxygen saturation when checked at bedside was around 92% while he is lying in bed. He did have a kyphotic p osture and was encouraged to use the incentive spirometry throughout the day and every other commerci al on TV to do at least 10-20 sets. Physical Examination: Vital Signs: Blood pressure 126/73, pulse 86, respiratory rate 18, temperature 98.3, oxygen saturati on 92%. Weight 170 pounds, height 5 feet 8 inches, BMI 25.8. General: Mr. Millard is lying in bed. Head of bed is up. He is going to slouch forward a bit and s aid he is mildly short of breath. He was checked with oxygen saturation, found to be 92%, and no oxy gen was given by nasal cannula. Musculoskeletal: He does have diffuse weakness of upper and lower extremities and pain in the back. He says when the brace is on while in bed, he does have some moderate pain at the L4 compression fra cture site. He does have pain patches on board there. Laboratory Studies: No new laboratory studies. X-ray/imaging: Have been mentioned. Medications: Again, he has lidocaine patch placed to the back. He has ciprofloxacin started 500 mg twice daily. He has also continued with [facility] for poor nutrition. He has trazodone because of insomnia issues and up to 200 mg at bedtime. Progress Made With Physical, Occupational, And Speech Therapy: With physical therapy today, he did p erform czlwns-nn-fyw transfers with moderate assistance and verbal cues, nod-mi-yswnn transfers with maximum assistance, uxhmk-zl-[id number] transfers also done with maximum assistance. He ambulated about 8 feet 3 times and 12 feet once with contact guard assistance with a rolling walker. Mobilized wheelc hair 130 feet with standby assistance. With occupational therapy, contact guard assistance with toil et transfers, [id number]-pt-[id number] transfers with a rolling walker also done. Did require partial assistance for toilet hygiene, putting down and up his pants. With speech, he was worked with speech [facility]ought[facility]ri st, was attempted short-term memory tasks. He was able to recall 2 of 3 unrelated items after 1 criselda te and on subsequent trials 1 of 3 items. He could eventually independently recall 2 of 2 unrelated times after a minute. He required moderate assistance for divergent and convergent naming tasks and that was done with 70% accuracy. Cause and effect tasks, he required moderate assistance and had 80% accuracy. Assessment And Plan: Mr. Millard is an 84-year-old patient in rehabilitation unit with L4 compressio n fracture. He has moderate cognitive impairment. He has now urinary tract infection and is receivi ng antibiotics. He does have decreased mobility, decreased physical functioning, insomnia, for which he has the trazodone on board. He has malnutrition, Ensure Enlive on board. He has Toprol-XL for h eart rate control. He has lidocaine patches for the back pain. He has the ciprofloxacin again. Has Eliquis for DVT prophylaxis. For cough, Tessalon Perles. Amiodarone for heart rate control and Nor co and Tylenol for pain. In terms of his plan, we will continue with physical, occupational, and spe ech therapy for 3.5 hours, 5 of 7 days. He has a list of comorbid condition medications have been gi elida including the antibiotics and we will have Tessalon Perles for cough. He has also oxygen supplem entation on board as needed. ARNIE/HAILEY Voice ID: [id number] Report ID: [id number]
[2024-12-10 07:24] LABS: Absolute Lymphocytes (CBC) 8.6 K/uL (0.7-4.9); Absolute Monocytes 0.1 K/uL (0.1-1.3); Absolute Neutrophil 2.2 K/uL (1.8-8.0); Basophils % 0.3 % (0-1.3); Eosinophils % 0.1 % (0-4.4); Hematocrit 28.1 % (39.6-49.0); Hemoglobin 9.3 g/dL (13.6-17.9); MCH 29.6 pg (27.0-35.0); MCHC 33.3 g/dL (32.0-36.0); MCV 88.9 fL (80-100); Monocytes % 0.6 % (3.3-12.3); Nucleated Red Blood Cells % 0.1 % (0-0); Platelets 70 thou/uL (152-406); RBC Red Blood Cell Count 3.16 M/uL (4.33-5.43); Red Cell Distribution Width 16.1 % (12.1-15.2)
[2024-12-10 07:41] LABS: Albumin 2.6 g/dL (3.4-5.0); Magnesium 2.2 mg/dL (1.6-2.4); Prealbumin 12.5 mg/dL (20-40)
[2024-12-10 09:34] LABS: Atypical Lymphocytes 47 %; Blood Morphology Comment NOTED (NOT SEEN); Differential Total Cells Count 100; Lymphocytes 33 % (15-42); Monocytes 4 % (0-10); Platelet Estimate DECR; Segmented Neutrophils 16 % (40-80); Stomatocytes 1+
[2024-12-10] MEDS: NA CHLORIDE 0.9% 1,000 ML IV SCH (12:34)
[2024-12-10] MEDS: ALBUTEROL 2.5 MG/3 ML NEB SOL NEB SCH (18:53)
[2024-12-10] MEDS: MEGESTROL 40 MG TAB PO SCH (20:18)
--- NOTE | 2024-12-11 00:45 | PN ---
Date of Progress Note: 12/10/2024 Time Of Service: 1:10 p.m. Subjective: Mr. Millard is resting in bed between therapy sessions. He reports some improvement in spasms, but still present in his back. There is an L4 compression fracture. He does have the pain p atches on board. I believe, he is making again slow progress on the left. Review of Systems: Mild myalgias, arthralgias in lower extremities. No rash, headache, weight change. Physical Examination: Vital Signs: Blood pressure is 111/60, pulse 86, respiratory rate 18, temperature 98.5, oxygen satur ation 92%. Weight 170 pounds, height 5 feet 8 inches, BMI 25.8. General: Mr. Millard is resting comfortably. He is in no acute distress. Extremities: He has no significant swelling in the lower and upper extremities and good hemostasis a t the back area. There are no abnormal issues identified. Medications: He was seen by the psychiatric service today and they will make adjustments to medicati ons as appropriate. Laboratory Studies: White blood cell count 10.9, hemoglobin 9.3, platelets are 70. Chemistry shows sodium 136, potassium 4.0, chloride 104, carbon dioxide is 10, BUN 19, creatinine 0.72, glucose 99, c alcium 8.7. Magnesium 2.2. Albumin 2.2, prealbumin 12.5. It is noted the patient does have lymphom a and there is some splenomegaly going that is chronic and some mild pain making it difficult for him to inspire as the pain is in the left upper quadrant area. He will have a lidocaine patch applied t o that area. Medications again, 2 lidocaine patches applied to the left upper quadrant area, which is making diffi cult for him to breathe now because of some mild splenomegaly related to his lymphoma. He otherwise continues with amiodarone, albuterol nebulizer. He has Eliquis on board for DVT prophylaxis. Tessal on Perles for cough. Cipro for urinary tract infection that was diagnosed yesterday and patient is a ctually more interactive and alert since being on the ciprofloxacin and that was noted actually by e patient's daughter and has Megace for his appetite stimulation, melatonin for insomnia, milk of mag nesia for constipation, Ensure Enlive for malnutrition. He has received some normal saline as well. Trazodone 200 mg at bedtime for his insomnia. Progress Made With Physical, Occupational, And Speech Therapy: Turning in bed with moderate assistan ce. Supine to sit transfers done with moderate assistance. Ifz-jo-atrpw transfers also with moderat e assistance. Ambulated 10 feet and 40 feet with minimal assistance using a rolling walker and mobil ized wheelchair about 10 feet 10 times with contact guard assistance. Oxygen saturation ranged betwe en 88% to 94%. When he completed his therapy session in the afternoon, he was at 97% on room air. R egarding occupational therapy, he did use incentive spirometer 10 times, completed bilateral upper ex tremity exercises with 2-pound dowel rods to improve his strength. With speech, organizational think ing skills used to address convergent naming tasks for concrete categories with 90% accuracy. Used s pace retrieval, improved delayed recall 2 of 3 unrelated pictures recalled after 1 minute. On the se cond attempt, he recalled 3 of 3 after a minute and then 3 of 3 after 2 minutes. Assessment: Mr. Millard is an 84-year-old patient in rehabilitation unit with L4 compression fractur e. He does have urinary tract infection. He is treated with ciprofloxacin. He has significant anem ia seeing the psychiatry service and again receiving blood and IV fluids for poor nutritio n. He has significant insomnia. He has high dose of trazodone on board. Plan: He will continue with physical, occupational, and speech therapy 3.5 hours. He will continue with comorbid medications, which have been noted with adjustments as appropriate and patient and daug hter are understanding of the changes his medication management and his regimen of therapy. ARNIE/HAILEY Voice ID: [id number] Report ID: [id number]
--- NOTE | 2024-12-11 13:22 | P.RH.PN ---
Estimated Length of Stay: 13 Expected Discharge Date: 12/17/24 Discharge Disposition Plan: Home Family Support: Yes Shelter Goal: Mobility, Transfers, Self Care Vital Signs: Last Vital Signs Temp 98.4 F 12/11/24 06:48 Pulse 85 12/11/24 08:00 Resp 16 12/11/24 06:48 BP 98/58 L 12/11/24 08:00 Pulse Ox 92 12/11/24 06:48 Laboratory: Laboratory Last Values WBC 10.90 thou/uL (4.3-10.9) 12/10/24 05:05 RBC 3.16 M/uL (4.33-5.43) L 12/10/24 05:05 Hgb 9.3 g/dL (13.6-17.9) L 12/10/24 05:05 Hct 28.1 % (39.6-49.0) L 12/10/24 05:05 MCV 88.9 fL (80-100) 12/10/24 05:05 MCH 29.6 pg (27.0-35.0) 12/10/24 05:05 MCHC 33.3 g/dL (32.0-36.0) 12/10/24 05:05 RDW 16.1 % (12.1-15.2) H 12/10/24 05:05 Plt Count 70 thou/uL (152-406) L 12/10/24 05:05 MPV 8.0 fL (7.6-11.3) 12/10/24 05:05 Plt Distribution Width Cancelled 12/07/24 05:00 Absolute Nucleated RBC Cancelled 12/07/24 05:00 Neutrophils % 20.0 % (41.7-73.7) L 12/10/24 05:05 Lymphocytes % 79.0 % (15.3-44.8) H 12/10/24 05:05 Monocytes % 0.6 % (3.3-12.3) L 12/10/24 05:05 Eosinophils % 0.1 % (0-4.4) 12/10/24 05:05 Basophils % 0.3 % (0-1.3) 12/10/24 05:05 Nucleated RBC % Cancelled 12/07/24 05:00 Absolute Neutrophils 2.2 K/uL (1.8-8.0) 12/10/24 05:05 Segmented Neutrophils 16 % (40-80) L 12/10/24 05:05 Absolute Lymphocytes 8.6 K/uL (0.7-4.9) H 12/10/24 05:05 Lymphocytes 33 % (15-42) 12/10/24 05:05 Monocytes 4 % (0-10) 12/10/24 05:05 Absolute Monocytes 0.1 K/uL (0.1-1.3) 12/10/24 05:05 Absolute Eosinophils 0.0 K/uL (0-0.5) 12/10/24 05:05 Absolute Basophils 0.0 K/uL (0-0.5) 12/10/24 05:05 Diff Path Review Cancelled 12/07/24 05:00 Atypical Lymphocytes 47 % 12/10/24 05:05 Platelet Estimate Decr 12/10/24 05:05 Stomatocytes 1+ 12/10/24 05:05 Morphology Comment Noted (NOT SEEN) 12/10/24 05:05 Sodium 136 mEq/L (136-145) 12/10/24 05:05 Potassium 4.0 mEq/L (3.5-5.1) 12/10/24 05:05 Chloride 104 mEq/L (98-107) 12/10/24 05:05 Carbon Dioxide 26 mEq/L (21-32) 12/10/24 05:05 Anion Gap 10.0 mEq/L (5.0-15.0) 12/10/24 05:05 BUN 19 mg/dL (7-18) H 12/10/24 05:05 Creatinine 0.72 mg/dL (0.70-1.30) 12/10/24 05:05 Est GFR (CKD-EPI) 91 ml/min (=/>90) 12/10/24 05:05 Glucose 95 mg/dL (74-106) 12/10/24 05:05 POC Glucose 99 mg/dL (65-120) 12/07/24 04:12 Calcium 8.7 mg/dL (8.5-10.1) 12/10/24 05:05 Magnesium 2.2 mg/dL (1.6-2.4) 12/10/24 05:05 Total Bilirubin Cancelled 12/08/24 Unknown Direct Bilirubin Cancelled 12/08/24 Unknown Indirect Bilirubin Cancelled 12/08/24 Unknown AST Cancelled 12/08/24 Unknown ALT Cancelled 12/08/24 Unknown Alkaline Phosphatase Cancelled 12/08/24 Unknown Serum Total Protein Cancelled 12/08/24 Unknown Albumin 2.6 g/dL (3.4-5.0) L 12/10/24 05:05 Globulin Cancelled 12/08/24 Unknown Albumin/Globulin Ratio Cancelled 12/08/24 Unknown Prealbumin 12.5 mg/dL (20-40) L 12/10/24 05:05 Urine Color Light-yellow (Yellow) 12/06/24 00:15 Urine Clarity Clear (Clear) 12/06/24 00:15 Urine pH 5.5 (5.0-7.0) 12/06/24 00:15 Ur Specific [place] 1.014 (1.005-1.030) 12/06/24 00:15 Glucose (UA)(Auto) Negative (Negative) 12/06/24 00:15 Urine Ketones Negative (Negative) 12/06/24 00:15 Urine Blood Negative (Negative) 12/06/24 00:15 Urine Nitrite Negative (Negative) 12/06/24 00:15 Urine Bilirubin Negative (Negative) 12/06/24 00:15 Urine Urobilinogen Normal (Normal) 12/06/24 00:15 Ur Leukocyte Esterase 25 Juan Carlos/uL (Negative) H 12/06/24 00:15 Urine RBC None seen /HPF (None Seen) 12/06/24 00:15 Urine WBC <5 /HPF (<5) 12/06/24 00:15 Ur Squamous Epith Cells <5 /HPF (None Seen) 12/06/24 00:15 Urine Bacteria None seen /HPF (<20) 12/06/24 00:15 Urine Mucus Slight /HPF (None Seen) 12/06/24 00:15 Urine Culture Reflexed Not needed 12/06/24 00:15 Urine Total Protein Negative (Negative) 12/06/24 00:15 Smear Scan Ok (OK) 12/06/24 05:46 Weight: 170 lb Wound Present: No Closed Surgical Incision Present: No Negative Pressure Wound Therapy Present: No Physician Update: Labs reviewed and are stable. Poor eating. BIMS 13. Pain is managed. Mild bladder incontinence. Poor cognition. SLUMS 9, poor memory. He has an EColi UTI on cipro. RW 200'. He has shallow breathing. Mod assist with transfers when fatigued. Moderate left upper quadrant pain. WC up to 250'. He did better with OT. 5/6 STG, mod assist lower body dressing, transfers and showers. Does not recall spinal precautions. Comment: ELISE covered with alexis Summary: Patient's care plan and terminal operator goals have been reviewed and revised as necessary. Please see the Rehabilitation Signature page for all necessary signatures.
[2024-12-11] MEDS: GABAPENTIN 100 MG CAP PO SCH (19:47)
[2024-12-11] MEDS: METOPROLOL XL 25 MG TAB PO SCH (19:48)
[2024-12-13] MEDS: DOCUSATE NA/SENNA CONC 1 TAB PO SCH (19:20)
[2024-12-14] MEDS: MAGNESIUM HYDROXIDE 8% 30 ML PO PRN (04:39)
--- NOTE | 2024-12-14 13:13 | RAD REPORT ---
EXAMINATION: Head Brain Wo Cont CLINICAL INDICATION: Male, 84 years old.increased confusion TECHNIQUE: Axial CT images from the skull base to the vertex without intravenous contrast. Coronal an d sagittal reformatted images were created from the data set. One or more of the following dose reduction techniques were used: Automated exposure control, adjustment of the mA and/or kV according to patient size, and/or iterative reconstruction. Unless otherwise specified, incidental findings do not require dedicated imaging follow-up. [id number]. COMPARISON: 12/01/2024 FINDINGS: INTRACRANIAL: No acute intracranial hemorrhage. No hydrocephalus. No mass effect or midline shift. Se jonathan chronic small vessel ischemic changes.Remote appearing bilateral basal ganglia lacunar infarcts. Moderate cerebral atrophy. VASCULATURE: No visualized abnormalities in the arteries or dural venous sinuses. SCALP/SKULL: No calvarial fracture identified. No acute soft tissue abnormality. SINUSES: Air-fluid levels present in the maxillary sinuses and the sphenoid sinus No significant mast oid fluid. IMPRESSION: No acute intracranial abnormality. Chronic small vessel ischemic changes.
--- NOTE | 2024-12-14 13:27 | RAD REPORT ---
EXAM: Chest Single View HISTORY: 84 years Male congestion COMPARISON: 12/09/2024 FINDINGS: LUNGS/PLEURA: Linear subsegmental atelectasis at the right lung base. The lungs are otherwise clear. CARDIAC/MEDIASTINUM: The cardiac silhouette is within normal limits. UPPER ABDOMEN: No significant abnormality. BONES: No acute abnormality. Remote right-sided rib fractures. LINES/TUBES/OTHER: N/A IMPRESSION: Linear opacities at the right lung base likely reflecting subsegmental atelectasis. No acute process otherwise identified.
[2024-12-14 13:59] LABS: Absolute Lymphocytes (CBC) 10.4 K/uL (0.7-4.9); Absolute Monocytes 0.1 K/uL (0.1-1.3); Absolute Neutrophil 2.7 K/uL (1.8-8.0); Basophils % 0.3 % (0-1.3); Eosinophils % 0.2 % (0-4.4); Hematocrit 30.5 % (39.6-49.0); Lymphocytes % 78.5 % (15.3-44.8); MCH 29.2 pg (27.0-35.0); MCHC 32.9 g/dL (32.0-36.0); MCV 88.9 fL (80-100); MPV 8.2 fL (7.6-11.3); Nucleated Red Blood Cells % 0.1 % (0-0); Platelets 124 thou/uL (152-406); RBC Red Blood Cell Count 3.43 M/uL (4.33-5.43)
[2024-12-14 14:01] LABS: Platelet Estimate DECR; Platelets, Giant PRESENT; White Blood Cell Scan OK (OK)
[2024-12-14 14:02] LABS: Blood Morphology Comment NOT SEEN (NOT SEEN)
[2024-12-14 14:14] LABS: Anion Gap 8.9 mEq/L (5.0-15.0); Potassium 3.9 mEq/L (3.5-5.1)
[2024-12-14] MEDS: NA CHLORIDE 0.9% 1,000 ML IV SCH (14:55)
[2024-12-14] MEDS: MELATONIN 5 MG TABLET PO SCH (19:31)
[2024-12-14] MEDS ORDERED: MELATONIN 3 MG TABLET PO SCH (21:00)
--- NOTE | 2024-12-15 01:06 | PN ---
Date of Progress Note: 12/14/2024 Time Of Service: 1:10 p.m. Subjective: Mr. Millard is resting in bed in between therapy sessions. Denies any significant pain in the L4 compression fracture site, still would like to wear the brace. At this point, he is not th riving very efficiently as expected and would likely require residential facility to continue the rapy giving more time to heal and to improve his capacity to return to his prior level of functioning . Objective: He denies any significant fevers, chills, nausea, vomiting, myalgias, arthralgias. He saxena s mild pain in the lower back and some fatigue. The family did note and the patient and the staff ac [facility] did note he was more sleepy and lethargic today. As a result, he did have a workup, which inc luded head CT scan done without contrast. The study did show no acute intracranial abnormalities. M ild chronic small vessel ischemic disease identified. Chest x-ray was done to rule out pneumonia and the study showed no evidence of pneumonia. There were linear opacities in the right lung base, like ly representing subsegmental atelectasis. Otherwise, no other new issues. Laboratory Studies: Blood work was also done today. His white blood cell count was 13.3 with lympho cytes 78.5, consistent with his lymphoma. Hemoglobin was 10.0, hematocrit 30.5, platelets 124. Sodi um 134, potassium 3.9, chloride 100, BUN 25, creatinine 1.01, glucose 115. His calcium is 9.1. Physical Examination: Vital Signs: Blood pressure 109/67, pulse 53, respiratory rate 18, temperature 98.1, oxygen saturati on 96%. General: Mr. Millard is resting in bed. He does respond to questions, has to be redirected to keep him focused. Does not appear to have any findings such as focal deficits. He has some mild breakdow n to the area of the cubital regions and L4 compression fracture site, he has no unexpected findings. Medications: Today, he did receive a liter of normal saline beginning at a rate of 75 cc an hour as he is somewhat dehydrated. He has Senokot 2 at night for constipation. In addition, melatonin 5 mg added to trazodone 200 mg at night as it is reported that he had some difficulty sleeping overnight. Progress Made With Physical, Occupational, And Speech Therapy: With physical therapy today, he did m ultiple ymr-ip-[id number] transfers and xlpal-or-wfppd transfers with contact guard assistance. He did am bulate 50 feet twice, 70 feet, and 80 feet with a rolling walker with contact guard to minimum assist ance. Mobilized a wheelchair 50 feet, 60 feet twice, and 100 feet with contact guard to standby assi stance. With occupational therapy, he did have minimal pain as he was mobilizing. Worked at the [facility] with oral/facial hygiene, it was setup assistance level. With speech, he needed maximum assistance to sequence 3 pieces of information. He is oriented to temporal concepts with 50% accuracy and spat ial concepts with 50% accuracy. Assessment: Mr. Millard is an 84-year-old patient in the rehabilitation unit with L4 compression fra cture. He has decreased mobility and decreased physical functioning. He has moderate cognitive impa irment, has insomnia, and has had some mild worrying decline in his cognitive examination. However, his CT scan of the head shows no significant or unexpected findings. Chest x-ray is clear. Blood wo rk did not reveal any systemic infection. Electrolytes, no significant abnormalities to explain any of his symptoms. However, the patient did have difficulty sleeping at night and his medications have been adjusted to allow him to have a better night's rest, which possibly may be explaining some of h is symptoms noted by staff and the patient's family. Plan: He will continue with physical, occupational, and speech therapy 3.5 hours, 5 of 7 days. We w ill also continue with comorbid condition medication management. He will have Eliquis 2.5 mg twice d aily for DVT prophylaxis; Tessalon Perles for cough, which has improved; amiodarone for heart rate an d blood pressure control. He has [place] for pain, gabapentin for neuropathic pain, Megace for poor ap petite, metoprolol for heart rate control, Ensure Enlive for malnutrition, Senokot-S for constipation. He is receiving normal saline for dehydration. LB/MODL Voice ID: [id number] Report ID: [id number]
[2024-12-15] MEDS: BISACODYL 10 MG RECTAL SUPP PR PRN (04:45)
--- NOTE | 2024-12-15 07:39 | RAD REPORT ---
Exam:Abdomen 1 View (KUB) Clinical history: Abdominal pain FINDINGS: The bowel gas pattern is unremarkable. Moderate amount of stool is present throughout the colon. Rectum is mildly distended with stool which could indicate a fecal impaction. No significant calcification is displayed.
[2024-12-15] MEDS: FLEET ENEMA ADULT PR ONE (09:25)
--- NOTE | 2024-12-15 22:17 | PN ---
Date of Progress Note: 12/15/2024 Time Of Service: 1:15 p.m. Subjective: Mr. Millard is resting in a chair beside bed. He is feeling better today. Did have goo d bowel movement. Said the pain in the back is improving. He said he slept better today than yester day. Objective: He denies any fevers, chills, nausea, vomiting, myalgias, arthralgias. Again, back pain is less. He had good bowel movements. Has no new complaints today. Says he is feeling much better. Physical Examination: Vital Signs: Blood pressure is 95/61, pulse 56, respiratory rate 18, temperature 97.7, oxygen satura tion 96%. General: Mr. Millard is resting comfortably. He is in no acute distress. He does have the back bra ce in place. HEENT: He is normocephalic, atraumatic. Sclerae anicteric. Oropharynx pink and moist. Laboratory Studies: Yesterday, white blood cell count 13.3 with lymphocytes 78.5, and sodium 134, po tassium 3.9, chloride 100. Did have KUB study done earlier today and the study showed moderate amoun t of stool throughout the colon and rectum is mildly distended with stool and could suggest fecal imp action and actually did have a Fleet enema and had a good bowel movement after that. No significant calcification was seen. Medications: As noted, a Fleet enema was given today. He did continue with Desyrel for sleep 200 mg at bedtime, melatonin 5 mg at bedtime. Did have Megace for his appetite. Milk of mag also added fo r bowel movements. He has gabapentin on board for neuropathic pain, Tessalon Perles for cough, Eliqu is for DVT prophylaxis, amiodarone for his blood pressure control, albuterol nebulizer for shortness of breath, and [place] for pain. Progress Made With Physical, Occupational, And Speech Therapy: With physical therapy today, he compl eted [id number]-bh-[id number] transfers with contact guard to minimum assistance. Bed mobility done with minimum assistance. He ambulated 50 feet twice and 20 feet with minimal assistance using a rolling walker. Also did another 60 feet and 75 feet with contact guard assistance with a rolling walker. He was ab le to mobilize wheelchair 7500 feet twice with contact guard assistance. With his occupational thera py, he continued to require minimal assistance for bed mobilization, moderate assistance for toiletin g, and was able to be cooperative, more happy today, and he had a good bowel movement as the therapis t noted. With speech, he was oriented to temporal concepts with 50% accuracy and spatial concepts wi th 25% accuracy. Understanding of concrete negative concepts was demonstrated with 90% accuracy and minimum assistance. Assessment: Mr. Millard is an 84-year-old patient with L4 compression fracture. His cognitive impai rment is moderate, has decreased mobility, decreased physical functioning. He had constipation and i s resolved, hypertension addressed. His DVT prophylaxis is also addressed. Cough addressed with Christina salon Perles, neuropathic pain addressed with gabapentin, and poor nutrition addressed with Ensure En live. He has trazodone for significant insomnia. Plan: In terms of his plan, he will continue with physical, occupational, and speech therapy 3.5 aura rs, 5 of 7 days. His list of comorbid condition medications will be continued and we will continue w ith stool softeners, laxatives, and Fleet enema if need be along with Dulcolax suppository. Given th e patient's progress which is found to be better today, he may not be a candidate for being discharge d home and so consideration must be given to the possibility of admitting to long-term to beatris nue therapy. However, the plan will be for him to go back home if he is able to do very well. ARNIE/HAILEY Voice ID: [id number] Report ID: [id number]
--- NOTE | 2024-12-16 19:07 | PN ---
Date of Progress Note: 12/16/2024 Time Of Service: 1:10 p.m. Subjective: Mr. Millard is mobilizing by a wheelchair. The therapist is working with him. He does have the back TLSO brace on. Denies any significant pain at his L4 lumbar compression fracture site. Feels he is making progress. Denies any spasms in the upper and lower extremities. No other compl aints. Review of Systems: No fevers, chills. No significant myalgias, arthralgias. No rash. No psychiatric issues. No genit ourinary or gastrointestinal issues, although he said he has not had a bowel movement in a couple of days and he will attempt another bowel movement. We will have stool softener or laxative continue wh ich is being maintained on a daily basis. Objective: Vital Signs: Blood pressure 110/62, pulse 85, respiratory rate 20, temperature 97.4, oxy gen saturation 92%. General: Mr. Millard is sitting on a chair as he mobilizes with the help of the physical therapist radha ovalles the gym. HEENT: He still is normocephalic, atraumatic appearing. His sclerae are anicteric. Extremities: The TLSO brace is in place. He is able to extend the legs and he is mobilizing in the hallway. Laboratory Studies: No new laboratory studies. X-ray/imaging: No new x-rays or imaging compared to yesterday. He had KUB study done showing modera te amount of stool. Medications: Medications have been reviewed and are unchanged. Still has melatonin at night for ins omnia, Senokot for constipation, trazodone to help with sleep. He has nutrition support with Ensure, Megace again for appetite, gabapentin for neuropathic pain, Eliquis for DVT prophylaxis. He has neb ulizer treatment for shortness of breath, [place] for pain management. Progress Made With Physical, Occupational, And Speech Therapy: In terms of therapy today, he did com plete vva-ax-yttoq transfers with contact guard to minimum assistance and bed mobilization done with minimum assistance. He ambulated 50 feet twice, 20 feet once with minimum assistance. He has a roll ing walker. He was able to mobilize wheelchair 100 feet twice and 75 feet with contact guard assista nce. In terms of occupational therapy, he performed a shower transfer, minimum assistance. He neede d minimum to moderate assistance to actually do the shower himself and for upper and lower body dress ing using an assistive device. Maximal assistance for footwear due to difficulty with his balance is sues and maintaining precautions from his spinal L4 fracture. Oxygen saturation was around 95% while doing therapy. With speech, he demonstrated improvement in his ability to communicate. His cogniti ve skills improved. His BIMS score improved from 13 to 15, which is a full score and his SLUMS score improved significantly from 8 to 14, but that still is consistent with a moderate cognitive impairme nt. He has deficits of short-term memory, working memory, calculation, and visual spatial awareness. Assessment: Mr. Millard is an 84-year-old patient in rehabilitation unit with L4 compression fractur e. He has decreased mobility, decreased physical functioning, moderate cognitive impairments, some m ild constipation, hypertension, risk of deep vein thrombus. He has a cough that has resolved, neurop athic pain. He has poor appetite, mild malnutrition with the insomnia. Plan: He will have physical, occupational, and speech therapy continue 3.5 hours 5 of 7 days. He do es have a list of medications, which have been noted. They will continue including to help him with constipation and for control of his blood pressure. He does also have lymphoma, which is currently s table and not impacting his therapy in any negative way. Since his improvement is also not as risk a s perhaps could be, he may require extended stay at [facility] prior to going home. However, th e goal is to get him to the safe place being able to manage activities of daily living independent wi thout risk of falling and mobilize distances, at least household distances prior to being discharged. He will work hard to achieve that, but if there is a possibility, he may have to go to [facility]. LB/MODL Voice ID: [id number] Report ID: [id number]
[2024-12-16 22:10] VITALS: O2SAT 96
[2024-12-17 06:21] LABS: Absolute Basophils 0.1 K/uL (0-0.5); Absolute Lymphocytes (CBC) 6.7 K/uL (0.7-4.9); Basophils % 0.6 % (0-1.3); Eosinophils % 0.5 % (0-4.4); Hematocrit 25.9 % (39.6-49.0); Hemoglobin 8.6 g/dL (13.6-17.9); Lymphocytes % 76.2 % (15.3-44.8); MCH 29.2 pg (27.0-35.0); MCHC 33.3 g/dL (32.0-36.0); MCV 87.7 fL (80-100); MPV 8.1 fL (7.6-11.3); Monocytes % 0.5 % (3.3-12.3); Neutrophils % 22.2 % (41.7-73.7); Nucleated Red Blood Cells % 0.1 % (0-0); Platelets 114 thou/uL (152-406); RBC Red Blood Cell Count 2.95 M/uL (4.33-5.43); Red Cell Distribution Width 16.2 % (12.1-15.2)
[2024-12-17 06:31] VITALS: BP 100/59; TEMP 98
[2024-12-17 06:36] LABS: Anion Gap 8.1 mEq/L (5.0-15.0); Magnesium 2.5 mg/dL (1.6-2.4); Potassium 4.1 mEq/L (3.5-5.1)
--- NOTE | 2024-12-17 14:48 | PN ---
Date of Progress Note: 12/17/2024 Subjective: Mr. Millard is resting comfortably and in his bed. Denies any complaints. His lumbar 4 compression fracture says is not necessarily bothering him really much. He does have the ASO brace on while in bed and so far is very happy with progress made while in therapy. Review of Systems: No fevers, chills, nausea, vomiting, myalgias, arthralgias, rash, headache, weight change. Physical Examination: Vital Signs: Blood pressure 100/59, pulse 85, respiratory rate 18, temperature 98, oxygen saturation 96%, weight 170 pounds, height 5 feet 8 inches, BMI 25.8. General: Mr. Millard was resting comfortably again in no apparent distress. HEENT: Normocephalic, atraumatic. Sclerae anicteric. Oropharynx pink, moist. Neck: Supple. Neurologic: No pain is noted significantly in his extremities. Laboratory Studies: White blood cell count 8.8, hemoglobin 8.6. His neutrophil count is 22, lymphoc ytes 76.2. It is noted that he has a lymphoma which is in remission at this point with normal white blood cell count and decreased lymphocyte count. Sodium 139, potassium 4.1, chloride 107, carbon karthik xide 28, BUN 19, creatinine 0.66. His calcium 8.5, magnesium 2.5. X-ray imaging, no new x-rays or i maging. Medications: Medications have been reviewed and are unchanged. He has had melatonin for his insomni a, Senokot for constipation. DVT prophylaxis provided with Eliquis 2.5 mg twice daily. Cough is add ressed with Tessalon Perles. Icard as needed for pain, Megace for poor appetite. Progress Made With Physical, Occupational Therapy: He was able to cover 150 feet with contact guard assistance. Did require some standing rest breaks as well as needing encouragement to continue. Mob ilized wheelchair 50 feet and 75 feet with supervision to modified independence. With his occupation al therapy required minimum to moderate assistance for showering, upper body dressing, lower body dougie ssing as well while using assistive devices. Oxygen saturation remained around 95% while he was in t herapy. With his speech, his BIMS score was normal at 15, SLUMS score improved from 8 to 14. Still has significant difficulty with short-term memory, working memory, calculations, which is spatial, or ientation and reasoning. Assessment: Mr. Millard is an 84-year-old patient with an L4 compression fracture that was traumatic , was making good progress overall with physical, occupational, and speech therapy. His comorbid con ditions are managed and stable. Does have still difficulty with his appetite. Blood pressures are s omewhat low. We will hold off on increasing antiepileptic medications. His DVT issues are addressed with Eliquis, shortness of breath addressed as well with nebulizer treatment. Cough has been mitiga chaitanya with Enzo Reeves. He has gabapentin for neuropathic pain, melatonin for insomnia and Senokot for constipation. Plan: We will continue with physical, occupational, and speech therapy 3.5 hours, 5 of 7 days. Cont inue with his list of medications that are addressing his comorbid conditions. He is doing fairly we ll, however, as a result of him not quite being very safe at this point to return home, he may requir e extended stay such as detention to continue therapy in a safe environment allowing to heal in terms of his L4 fracture prior to going home as he will still be high risk of falling and injury if he were to go home at this point, and so detention is being explored. ARNIE/HAILEY Voice ID: [id number] Report ID: [id number]
--- NOTE | 2024-12-27 23:01 | CON ---
Date of Consultation: 12/10/2024 Reason For Consultation: Evaluation for confusion and possible hallucination, and make recommendsabinao giorgio. The patient was rehabilitation floor, lying in bed, with his [id number] by his bedsid scot. History was presented by both xmdggicr-[id number] and the patient. By history, the patient is an 84- year-old male with multiple medical issues; lymphoma; prostate cancer; coronary artery dise ase, status post bypass grafting; hypertension; and chronic back pain. The patient lives independent ly and has been managing his own care until recent hospitalization due to acute onset of confusion. the patient has no psychiatric symptoms, psychiatric history. Had multiple falls presentl y. Per [id number], the patient was noted to be recognize any family members. He sta abdi he fell because he tripped over some furniture, and as a result fractured his vertebrae during fall. recent memory issue. He reports that memory difficulties, but has bec ome pronounced prior to admission. Stated that he has been eating less, meals for the pas t 3 days prior to his admission. The patient did not have any history of psychotic symptoms. It was also noted that the patient has been managing his home medications. No history of depression. No h istory of generalized anxiety, but the patient states that he does get lonely at times. assessment, recent increase in confusion and memory lapses. loss of his a nd contributed to current mental state. There were no current . The patient was lying in bed, not in any acute distress. Cooperative during the interview. Pleasant. Alert and oriented to person and to place only. Speech is spontaneous, soft. Normal rate and rhythm. Memory is _ Thought process is linear, at times circumstantial. Thought content: No delusional thinking. No suicidal ideation. No rumination. No auditory or visual hallucination elicited. Fund of knowledge is fair. Language skill is fair. Insight, judgment, impulse control impaired. Assessment: 1. Altered mental status. 2. . 3. Dehydration . 4. Loss of loved one. Plan: 1. review of patient's home medication with possible contribution to the patient's confusi on. Encourage nutritional supplement and ensure adequate calorie intake. possible stevenson ia. We will follow up post discharge, currently establishing with Psychiatry outpatient for further evaluation. Continue all current management. KO/MODL Voice ID: [id number] Report ID: [id number]
== END 2024-12-17 15:25 | DRG 560 ==
LOC: 5TH 12-06 00:06
PROVIDERS: ADMIT Psychiatry & Neurology Neurology with Special Qualifications in Child Neurology; ATTEND Psychiatry & Neurology Neurology with Special Qualifications in Child Neurology
DX: S32.049D Unspecified fracture of fourth lumbar vertebra, subsequent encounter for fracture with routine healing (principal); C85.90 Non-Hodgkin lymphoma, unspecified, unspecified site; E46 Unspecified protein-calorie malnutrition; F05 Delirium due to known physiological condition; N39.0 Urinary tract infection, site not specified; B96.20 Unspecified Escherichia coli [E. coli] as the cause of diseases classified elsewhere; R53.1 Weakness; R53.83 Other fatigue; R05.9 Cough, unspecified; K59.00 Constipation, unspecified; E86.0 Dehydration; I10 Essential (primary) hypertension; G47.00 Insomnia, unspecified; R06.02 Shortness of breath; D64.9 Anemia, unspecified; M62.830 Muscle spasm of back; F03.90 Unspecified dementia, unspecified severity, without behavioral disturbance, psychotic disturbance, mood disturbance, and anxiety; F41.9 Anxiety disorder, unspecified; F32.A Depression, unspecified; I25.10 Atherosclerotic heart disease of native coronary artery without angina pectoris; C61 Malignant neoplasm of prostate; R32 Unspecified urinary incontinence; Z91.81 History of falling; Z95.1 Presence of aortocoronary bypass graft; Z68.25 Body mass index [BMI] 25.0-25.9, adult
CPT/HCPCS: 36415; 70450; 71045; 74018; 80048; 81001; 82040; 82947; 83735; 84134; 85025; 87077; 87086; 87088; 87186; 92523; 93005; 94640; 97110; 97116; 97129; 97163; 97165; 97530; 97542; J2003; J7030; J7613